=== PATIENT | female | born 1930 | race Hispanic/Latino ===

== ENCOUNTER 2018-07-15 08:37 | Emergency (ER) | payer MEDICARE, BC ==
[2018-07-15 08:43] VITALS: TEMP 97.3
[2018-07-15] MEDS ORDERED: Lidocaine 1% (10 ml) Inj INFIL ONE (09:16)
[2018-07-15] MEDS ORDERED: Lidocaine 1% Inj (20ml) ONE (09:23)
--- NOTE | 2018-07-15 10:13 | ED PDOC ---
HPI: Trauma/Fall - HPI Time Seen by Provider: 07/15/18 09:02 Chief Complaint (Nursing): Abnormal Skin Integrity Chief Complaint (Provider): Abnormal Skin Integrity History Per: Family () History/Exam Limitations: no limitations Additional Complaint(s): Marjorie Ko is a 88 year old female with a past medical history of HTN and diabetes, who presents to the emergency department accompanied by her son and for a fall related injury. As per , patient was witnessed attempting to open the microwave door forcefully and ended up falling to the floor. Patient states she stuck her head on floor but did not lose consciousness, confirmed by the patient. She also states that she was able to walk to the car to get to the ED. She states she has a left sided headache and a laceration to the left side of the face. Patient denies any extremity pain, hip pain, pelvic pain, chest pain, dizziness, LOC, nausea, or vomiting. PMD: Nickolas Whittington Past Medical History Reviewed: Historical Data, Nursing Documentation, Vital Signs Vital Signs: Last Vital Signs Temp 97.3 F L 07/15/18 08:42 Pulse 88 07/15/18 08:42 Resp 18 07/15/18 08:42 BP 171/72 H 07/15/18 08:42 Pulse Ox 99 07/15/18 08:42 - Medical History PMH: Diabetes, HTN, Hypercholesterolemia, Kidney Stones Denies: Chronic Kidney Disease - Surgical History Surgical History: - Family History Family History: States: Unknown Family Hx - Home Medications Home Medications: Ambulatory Orders Medication Instructions Recorded Hydrocortisone [Anusol Hc-1] 1 oin TP BID #1 oin 09/26/14 Polyethylene Glycol 3350 [Miralax] 17 gm PO DAILY #1 bottle 09/26/14 Acetaminophen [Tylenol Extra 1,000 mg PO Q8H PRN 10/01/14 Strength] Enalapril Maleate 20 mg PO DAILY 10/01/14 GlipiZIDE SR [Glucotrol XL] 10 mg PO DAILY 10/01/14 Hydrochlorothiazide 25 mg PO DAILY 10/01/14 Latanoprost 0.005% Opht [Xalatan 1 drop RIGHTEYE HS 10/01/14 Opht] MetFORMIN [glucoPHAGE] 1,000 mg PO BID 10/01/14 Simvastatin [Zocor] 20 mg PO DAILY 10/01/14 - Allergies Allergies/Adverse Reactions: Allergies Allergy/AdvReac Type Severity Reaction Status Date / Time No Known Allergies Allergy Verified 09/26/14 10:56 Review of Systems ROS Statement: Except As Marked, All Systems Reviewed And Found Negative Constitutional: Positive for: Other (laceration to the left side of face) Cardiovascular: Negative for: Chest Pain Gastrointestinal: Negative for: Nausea, Vomiting Musculoskeletal: Negative for: Arm Pain, Hand Pain, Leg Pain, Foot Pain, Other (hip/pelvic pain) Neurological: Positive for: Headache. Negative for: Dizziness, Other (LOC) Physical Exam - Reviewed Nursing Documentation Reviewed: Yes Vital Signs Reviewed: Yes - Physical Exam Appears: Positive for: Non-toxic, No Acute Distress Head Exam: Negative for: NORMAL INSPECTION (Left upper temporal area 1 cm linear superficial laceration without active bleeding) Skin: Positive for: Normal Color, Warm, Dry Eye Exam: Positive for: Normal appearance, EOMI, PERRL Neck: Positive for: Normal, Painless ROM, Supple Cardiovascular/Chest: Positive for: Regular Rate, Rhythm. Negative for: Murmur Respiratory: Positive for: Normal Breath Sounds. Negative for: Respiratory Distress Gastrointestinal/Abdominal: Positive for: Normal Exam, Soft. Negative for: Tenderness Back: Positive for: Normal Inspection. Negative for: L CVA Tenderness, R CVA Tenderness, Vertebral Tenderness Extremity: Positive for: Normal ROM. Negative for: Pedal Edema, Deformity Neurologic/Psych: Positive for: Alert, Oriented (x3), Gait (steady and unassisted ) - ECG O2 Sat by Pulse Oximetry: 99 (RA) Pulse Ox Interpretation: Normal Medical Decision Making Medical Decision Making: Time: 915 Plan: --CT cervical Spine, head and maxillofacial without contrast --Lidocaine hydrochloride 1% 3 ml --- Scribe Attestation: Documented by Mert Calderon, acting as a scribe for Bryant Lucas. Provider Scribe Attestation: All medical record entries made by the Scribe were at my direction and personally dictated by me. I have reviewed the chart and agree that the record accurately reflects my personal performance of the history, physical exam, medical decision making, and the department course for this patient. I have also personally directed, reviewed, and agree with the discharge instructions and disposition. Disposition - Disposition
--- NOTE | 2018-07-15 10:25 | ED PDOC ---
HPI: Trauma/Fall - HPI Time Seen by Provider: 07/15/18 09:02 Chief Complaint (Nursing): Abnormal Skin Integrity Chief Complaint (Provider): Abnormal Skin Integrity History Per: Family () History/Exam Limitations: no limitations Additional Complaint(s): Carlos Ko is a 88 year old female with a past medical history of HTN and diabetes, who presents to the emergency department accompanied by her son and for a fall related injury. As per , patient was witnessed attempting to open the microwave door forcefully and ended up falling to the floor. Patient states she stuck her head on floor but did not lose consciousness, confirmed by the patient. She also states that she was able to walk to the car to get to the ED. She states she has a left sided headache and a laceration to the left side of the face. Patient denies any extremity pain, hip pain, pelvic pain, chest pain, dizziness, LOC, nausea, or vomiting. PMD: Nickolas Whittington Past Medical History Reviewed: Historical Data, Nursing Documentation, Vital Signs Vital Signs: Last Vital Signs Temp 97.3 F L 07/15/18 08:42 Pulse 88 07/15/18 08:42 Resp 18 07/15/18 08:42 BP 171/72 H 07/15/18 08:42 Pulse Ox 99 07/15/18 08:42 - Medical History PMH: Diabetes, HTN, Hypercholesterolemia, Kidney Stones Denies: Chronic Kidney Disease - Surgical History Surgical History: - Family History Family History: States: Unknown Family Hx - Home Medications Home Medications: Ambulatory Orders Medication Instructions Recorded Hydrocortisone [Anusol Hc-1] 1 oin TP BID #1 oin 09/26/14 Polyethylene Glycol 3350 [Miralax] 17 gm PO DAILY #1 bottle 09/26/14 Acetaminophen [Tylenol Extra 1,000 mg PO Q8H PRN 10/01/14 Strength] Enalapril Maleate 20 mg PO DAILY 10/01/14 GlipiZIDE SR [Glucotrol XL] 10 mg PO DAILY 10/01/14 Hydrochlorothiazide 25 mg PO DAILY 10/01/14 Latanoprost 0.005% Opht [Xalatan 1 drop RIGHTEYE HS 10/01/14 Opht] MetFORMIN [glucoPHAGE] 1,000 mg PO BID 10/01/14 Simvastatin [Zocor] 20 mg PO DAILY 10/01/14 - Allergies Allergies/Adverse Reactions: Allergies Allergy/AdvReac Type Severity Reaction Status Date / Time No Known Allergies Allergy Verified 09/26/14 10:56 Review of Systems ROS Statement: Except As Marked, All Systems Reviewed And Found Negative Constitutional: Positive for: Other (laceration to the left side of face ) Cardiovascular: Negative for: Chest Pain Gastrointestinal: Negative for: Nausea, Vomiting Musculoskeletal: Negative for: Arm Pain, Hand Pain, Leg Pain, Foot Pain, Other (hip/pelvic pain) Neurological: Positive for: Headache. Negative for: Dizziness, Other (LOC) Physical Exam - Reviewed Nursing Documentation Reviewed: Yes Vital Signs Reviewed: Yes - Physical Exam Appears: Positive for: Non-toxic, No Acute Distress Head Exam: Negative for: NORMAL INSPECTION (Left upper temporal area 1 cm linear superficial laceration without active bleeding) Skin: Positive for: Normal Color, Warm, Dry Eye Exam: Positive for: Normal appearance, EOMI, PERRL Neck: Positive for: Normal, Painless ROM, Supple Cardiovascular/Chest: Positive for: Regular Rate, Rhythm. Negative for: Murmur Respiratory: Positive for: Normal Breath Sounds. Negative for: Respiratory Distress Gastrointestinal/Abdominal: Positive for: Normal Exam, Soft. Negative for: Tenderness Back: Positive for: Normal Inspection. 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 Localized cortical atrophic changes also contribute bilaterally left greater than right no acute parenchymal, subarachnoid or extra- axial hemorrhage.. BRAIN: Moderate diffuse/confluent chronic white matter ischemic changes seen extending peripherally into the deep and subcortical white matter both cerebral hemispheres. There is also extension of these changes into the white matter tracts of both basal nuclei. Scattered more discrete subcortical as well as bilateral basal nuclei ischemic changes. Significant generalized volume loss with localized bilateral cortical volume loss as well No obvious parenchymal nor extra-axial masses or collections seen on this noncontrast exam. Vascular calcifications both carotid siphons and vertebral arteries. VENTRICLES: No obstructive hydrocephalus however there asymmetry of the lateral ventricles right-sided which is larger than the left. CALVARIUM: No acute calvarial fractures. A. Questionable of chronic right nasal bone fracture PARANASAL SINUSES: Unremarkable as visualized. No significant inflammatory changes. MASTOID AIR CELLS: Unremarkable as visualized. No inflammatory changes. OTHER FINDINGS: Changes of bilateral cataract surgery. IMPRESSION: No acute intracranial hemorrhage. Questionable left-sided subdural hygroma with fairly significant generalized volume loss and more localized bilateral cortical atrophic changes. Moderate chronic white matter and basal nuclei ischemic changes. Questionable chronic right nasal bone fracture [address] FINDINGS: NASAL BONES: Questionable old right sided nasal bone fracture. ORBITS: Bony orbits are intact however there is mild localized left lateral orbital swelling which extends superiorly into the left supraorbital and frontal scalp. Questionable minimal right frontal scalp swelling.. Changes of bilateral cataract surgery however globes are otherwise unremarkable. There are no retrobulbar hemorrhages or collections. Optic nerves and extraocular musculature unremarkable. PARANASAL SINUSES/ MASTOIDS: Clear. MAXILLA: Minimal mucosal thickening seen within the inferior aspect right maxillary antrum. There is also minimal mucosal thickening within few superior anterior ethmoid air cells. MANDIBLE/ TEMPOROMANDIBULAR JOINTS: Unremarkable. SKULL BASE: Unremarkable. TEMPORAL BONES: Middle ears and mastoid grossly unremarkable. OTHER FINDINGS: Changes of bilateral cataract surgery. IMPRESSION: Mild localized left lateral orbital swelling which extends superiorly into the left supraorbital and frontal scalp. Questionable minimal right frontal scalp swelling.. Changes of bilateral cataract surgery. Questionable old right-sided nasal bone fracture deformity. Changes of bilateral cataract surgery. [address] FINDINGS: VERTEBRAE: No fracture. Normal alignment. No destructive bony lesion. DISCS/SPINAL CANAL/NEURAL FORAMINA: At the C2-C3 level, there is adequate disc height. Small central and bilateral disc protrusion indents the ventral surface of the thecal sac and appears to minimally flatten the cord. Central canal is slightly narrowed at this level. Facet joints are slightly hypertrophic however exit foramina appear adequate. At the C3-C4 level, there is mild posterior disc space narrowing with small central and bilateral disc protrusion indents the ventral surface of the thecal sac and spinal cord. The overall central bony canal marginal to adequate at this level.. Facets are slightly hypertrophic left greater than right however exit foramina adequate. At the C4-C5 level, there is adequate disc height. Small central and bilateral disc bulge flattens the ventral surface of the thecal sac though does not cause any significant canal stenosis nor cord compression. The The remaining levels exhibit adequate disc height. No disc herniations nor significant disc bulges. The overall central canal and exit foramina appear adequate. The facet joints are slightly hypertrophic at the remaining levels. PARASPINAL SOFT TISSUES: There is a small amount of air seen within the lower prevertebral soft tissues noted (seen at the inferior C5, level of uncertain etiology. No evidence of a pneumothorax is identified in the lung apices. OTHER FINDINGS: Lung apices clear without infiltrate effusion or pneumothorax. Some minimal biapical pleural thickening and parenchymal scarring. IMPRESSION: No acute fractures.. There are a few tiny bubbles of air within the lower prevertebral soft tissues at the inferior C5 level nonspecific. No evidence of apical pneumothorax. Mild multilevel degenerative spondylosis most notably affecting the C2-C3 and C3-C4 levels as detailed above. Case d/w Dr. Rios and due to CT findings CT chest w/o contrast: Mild passive/dependent type atelectasis both posterior lower lung thurman with more discrete compressive type atelectasis in the left lung base and right middle lobe.. Minimal linear scarring left lingular region. There is also localized focal linear scarring in the middle lobe associate with a small calcified granuloma. There is a small localized area of pleural thickening and/or scarring posteromedial aspect left upper lobe. No evidence of pneumothorax. Mild splenomegaly. Minor fatty hepatic infiltration. Pt., , and son informed of results and advised to f/u with Dr. Whittington regarding CT findings of granuloma. Advised to return to ED immediately for any concerns or questions. Scribe Attestation: Documented by Mert Calderon, acting as a scribe for Bryant Green Provider Scribe Attestation: All medical record entries made by the Scribe were at my direction and personally dictated by me. I have reviewed the chart and agree that the record accurately reflects my personal performance of the history, physical exam, medical decision making, and the department course for this patient. I have also personally directed, reviewed, and agree with the discharge instructions and disposition. Procedures - Time-Out Type of Procedure: Laceration repair Site of Procedure: L side of face Correct Patient (with visual ID + MR# on ID Band): Yes Correct Procedure: Yes Correct Site Marked: Yes PA/Tech: Daly MASTERS - Laceration/Wound Repair Laceration repair Wound Length (cm): 1.5 Wound's Depth, Shape: superficial, linear Wound Explored: clean Irrigated w/ Saline (ccs): 300 Betadine Prep?: Yes Anesthesia: 1% Lidocaine Volume Anesthetic (ccs): 3 Suture Size/Type: 5:0, proline Number of Sutures: 3 Wound Complexity: Simple Sterile Dressing Applied?: Yes Disposition - Clinical Impression Clinical Impression: Head injury, Facial laceration - Patient ED Disposition Is Patient to be Admitted: No - Disposition Referrals: Nickolas Whittington MD [Staff Provider] - [facility] [Outside] Disposition: Routine/Home Disposition Time: 13:29 Condition: STABLE Additional Instructions: SUTURE REMOVAL IN 7 DAYS CARLOS KO, thank you for letting us take care of you today. Your provider was Jose Guadalupe Rios III, DO and you were treated for FALL:EYE LACERATION. The emergency medical care you received today was directed at your acute symptoms. If you were prescribed any medication, please fill it and take as directed. It may take several days for your symptoms to resolve. Return to the Emergency Department if your symptoms worsen, do not improve, or if you have any other problems. Please contact your doctor or call one of the physicians/clinics you have been referred to that are listed on the Patient Visit Information form that is included in your discharge packet. Bring any paperwork you were given at discharge with you along with any medications you are taking to your follow up visit. Our treatment cannot replace ongoing medical care by a primary care provider outside of the emergency department. Thank you for allowing the [facility] team to be part of your care today. If you had an X-Ray or CT scan: A Radiologist will review the ED reading if any change in treatment is needed we will contact you. If you had a blood, urine, or wound culture: It will take several days for the results, if any change in treatment is needed we will contact you. If you had an STI test: It will take 48 hours for the results. Please call after 1 week if you have not heard back. Instructions: Closed Head Injury, Laceration Repair With Stitches (DC) Forms: [employer] ([place])
--- NOTE | 2018-07-15 10:51 | CT ---
Date of service: 07/15/2018 PROCEDURE: CT HEAD WITHOUT CONTRAST. HISTORY: trauma COMPARISON: Correlation made with concurrent CT scan maxillofacial skeleton TECHNIQUE: Axial computed tomography images were obtained through the head/brain without intravenous contrast. Radiation dose: Total exam DLP = 795.24 mGy-cm. This CT exam was performed using one or more of the following dose reduction techniques: Automated exposure control, adjustment of the mA and/or kV according to patient size, and/or use of iterative reconstruction technique. 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 Localized cortical atrophic changes also contribute bilaterally left greater than right no acute parenchymal, subarachnoid or extra-axial hemorrhage.. BRAIN: Moderate diffuse/confluent chronic white matter ischemic changes seen extending peripherally into the deep and subcortical white matter both cerebral hemispheres. There is also extension of these changes into the white matter tracts of both basal nuclei. Scattered more discrete subcortical as well as bilateral basal nuclei ischemic changes. Significant generalized volume loss with localized bilateral cortical volume loss as well No obvious parenchymal nor extra-axial masses or collections seen on this noncontrast exam. Vascular calcifications both carotid siphons and vertebral arteries. VENTRICLES: No obstructive hydrocephalus however there asymmetry of the lateral ventricles right-sided which is larger than the left. CALVARIUM: No acute calvarial fractures. A. Questionable of chronic right nasal bone fracture PARANASAL SINUSES: Unremarkable as visualized. No significant inflammatory changes. MASTOID AIR CELLS: Unremarkable as visualized. No inflammatory changes. OTHER FINDINGS: Changes of bilateral cataract surgery. IMPRESSION: No acute intracranial hemorrhage. Questionable left-sided subdural hygroma with fairly significant generalized volume loss and more localized bilateral cortical atrophic changes. Moderate chronic white matter and basal nuclei ischemic changes. Questionable chronic right nasal bone fracture
--- NOTE | 2018-07-15 10:55 | CT ---
Date of service: 07/15/2018 PROCEDURE: CT MAXILLOFACIAL BONES WITHOUT CONTRAST HISTORY: Trauma COMPARISON: Correlation made with concurrent CT scan brain.. TECHNIQUE: Contiguous axial CT images of the maxillofacial bones were obtained. Coronal and sagittal reformats were generated. Radiation dose: Total exam DLP = 725.93 mGy-cm. This CT exam was performed using one or more of the following dose reduction techniques: Automated exposure control, adjustment of the mA and/or kV according to patient size, and/or use of iterative reconstruction technique. FINDINGS: NASAL BONES: Questionable old right sided nasal bone fracture. ORBITS: Bony orbits are intact however there is mild localized left lateral orbital swelling which extends superiorly into the left supraorbital and frontal scalp. Questionable minimal right frontal scalp swelling.. Changes of bilateral cataract surgery however globes are otherwise unremarkable. There are no retrobulbar hemorrhages or collections. Optic nerves and extraocular musculature unremarkable. PARANASAL SINUSES/ MASTOIDS: Clear. MAXILLA: Minimal mucosal thickening seen within the inferior aspect right maxillary antrum. There is also minimal mucosal thickening within few superior anterior ethmoid air cells. MANDIBLE/ TEMPOROMANDIBULAR JOINTS: Unremarkable. SKULL BASE: Unremarkable. TEMPORAL BONES: Middle ears and mastoid grossly unremarkable. OTHER FINDINGS: Changes of bilateral cataract surgery. IMPRESSION: Mild localized left lateral orbital swelling which extends superiorly into the left supraorbital and frontal scalp. Questionable minimal right frontal scalp swelling.. Changes of bilateral cataract surgery. Questionable old right-sided nasal bone fracture deformity. Changes of bilateral cataract surgery.
--- NOTE | 2018-07-15 11:36 | CT ---
Date of service: 07/15/2018 PROCEDURE: CT Cervical Spine without contrast HISTORY: Trauma the COMPARISON: None available. TECHNIQUE: Axial computed tomography images were obtained of the cervical spine without the use of intravenous contrast. Coronal and sagittal reformatted images were created and reviewed. Radiation dose: Total exam DLP = 311.53 mGy-cm. This CT exam was performed using one or more of the following dose reduction techniques: Automated exposure control, adjustment of the mA and/or kV according to patient size, and/or use of iterative reconstruction technique. FINDINGS: VERTEBRAE: No fracture. Normal alignment. No destructive bony lesion. DISCS/SPINAL CANAL/NEURAL FORAMINA: At the C2-C3 level, there is adequate disc height. Small central and bilateral disc protrusion indents the ventral surface of the thecal sac and appears to minimally flatten the cord. Central canal is slightly narrowed at this level. Facet joints are slightly hypertrophic however exit foramina appear adequate. At the C3-C4 level, there is mild posterior disc space narrowing with small central and bilateral disc protrusion indents the ventral surface of the thecal sac and spinal cord. The overall central bony canal marginal to adequate at this level.. Facets are slightly hypertrophic left greater than right however exit foramina adequate. At the C4-C5 level, there is adequate disc height. Small central and bilateral disc bulge flattens the ventral surface of the thecal sac though does not cause any significant canal stenosis nor cord compression. The The remaining levels exhibit adequate disc height. No disc herniations nor significant disc bulges. The overall central canal and exit foramina appear adequate. The facet joints are slightly hypertrophic at the remaining levels. PARASPINAL SOFT TISSUES: There is a small amount of air seen within the lower prevertebral soft tissues noted (seen at the inferior C5, level of uncertain etiology. No evidence of a pneumothorax is identified in the lung apices. OTHER FINDINGS: Lung apices clear without infiltrate effusion or pneumothorax. Some minimal biapical pleural thickening and parenchymal scarring. IMPRESSION: No acute fractures.. There are a few tiny bubbles of air within the lower prevertebral soft tissues at the inferior C5 level nonspecific. No evidence of apical pneumothorax. Mild multilevel degenerative spondylosis most notably affecting the C2-C3 and C3-C4 levels as detailed above.
--- NOTE | 2018-07-15 13:24 | CT ---
Date of service: 07/15/2018 PROCEDURE: CT Chest without contrast HISTORY: Fall with air bubbles noted in paracervical areas COMPARISON: None available. TECHNIQUE: Contiguous axial images were obtained through the chest without intravenous contrast enhancement. Sagittal and coronal reconstructions were performed. Radiation dose: Total exam DLP = 281.88 mGy-cm. This CT exam was performed using one or more of the following dose reduction techniques: Automated exposure control, adjustment of the mA and/or kV according to patient size, and/or use of iterative reconstruction technique. FINDINGS: LUNGS: Mild passive/dependent type atelectasis both posterior lower lung thurman with more discrete compressive type atelectasis in the left lung base and right middle lobe.. Minimal linear scarring left lingular region. There is also localized focal linear scarring in the middle lobe associate with a small calcified granuloma. There is a small localized area of pleural thickening and/or scarring posteromedial aspect left upper lobe. MEDIASTINUM: Heart size upper limits of normal-borderline enlarged. No significant pericardial effusion.. Ascending thoracic aorta measures approximately 3.1 cm and descending thoracic aorta measures approximately 2.4 cm. No aortic atherosclerotic calcification. Pulmonary trunk measures approximately 2.3 cm.. The there are multiple small nonspecific mediastinal lymph nodes. Evaluation for hilar adenopathy is somewhat limited due to the lack of circulating intravenous contrast material. Trachea midline and patent with no large central endoluminal lesions. Small hiatal hernia. PLEURA: No pleural fluid. No pneumothorax. BONES: Mild multilevel degenerative spondylosis of the thoracic spine. There are no acute compression fractures no retropulsed fragments UPPER ABDOMEN: Spleen is mildly enlarged measuring approximately 13 cm in AP dimension. Mild fatty hepatic infiltration. OTHER FINDINGS: None. IMPRESSION: Mild passive/dependent type atelectasis both posterior lower lung thurman with more discrete compressive type atelectasis in the left lung base and right middle lobe.. Minimal linear scarring left lingular region. There is also localized focal linear scarring in the middle lobe associate with a small calcified granuloma. There is a small localized area of pleural thickening and/or scarring posteromedial aspect left upper lobe. No evidence of pneumothorax. Mild splenomegaly. Minor fatty hepatic infiltration.
[2018-07-15 17:22] VITALS: BP 147/68; PULSE 76; RESP 16
[2018-07-15 18:34] VITALS: O2SAT 99
== END 2018-07-15 13:40 | disposition home or self-care (01) ==
LOC: H.ER 08:37
DX: S01.81XA Laceration without foreign body of other part of head, initial encounter (principal); W22.8XXA Striking against or struck by other objects, initial encounter; Y92.89 Other specified places as the place of occurrence of the external cause; E11.9 Type 2 diabetes mellitus without complications; Z79.84 Long term (current) use of oral hypoglycemic drugs; E78.00 Pure hypercholesterolemia, unspecified; I10 Essential (primary) hypertension

== ENCOUNTER 2018-09-18 07:58 | Inpatient (IN) | payer BC, MEDICARE ==
[2018-09-18 08:02] VITALS: BMI 24.6
--- NOTE | 2018-09-18 08:23 | ED PDOC ---
HPI: Trauma/Fall - HPI Time Seen by Provider: 09/18/18 08:01 Chief Complaint (Nursing): Trauma Chief Complaint (Provider): fall History Per: Patient History/Exam Limitations: no limitations Onset/Duration Of Symptoms: Hrs (last night) Associated Symptoms: denies: Dizziness Additional Complaint(s): Marjorie Ko is an 88 year old female, with a past medical history of diabetes, who was brought to the emergency department after patient experienced a fall last night while going to the bathroom. states patient did not trip but just fell down. Unclear if there was loss of consciousness. Patient reports having multiple falls in the past x2 weeks with prior ED visit. She denies any head injury, neck pain, back pain, hip pain, antecedent dizziness, chest pain or palpitations. No further medical complaints. PMD: Nickolas Whittington Past Medical History Reviewed: Historical Data, Nursing Documentation, Vital Signs Vital Signs: Last Vital Signs Temp 97.7 F 09/18/18 08:03 Pulse 90 09/18/18 08:03 Resp 17 09/18/18 08:03 BP 162/75 H 09/18/18 08:03 Pulse Ox 97 09/18/18 08:03 - Medical History PMH: Diabetes, HTN, Hypercholesterolemia, Kidney Stones Denies: Chronic Kidney Disease - Surgical History Surgical History: - Family History Family History: States: Unknown Family Hx - Social History Current smoker - smoking cessation education provided: No Alcohol: None Drugs: Denies - Home Medications Home Medications: Ambulatory Orders Medication Instructions Recorded Hydrocortisone [Anusol Hc-1] 1 oin TP BID #1 oin 09/26/14 Polyethylene Glycol 3350 [Miralax] 17 gm PO DAILY #1 bottle 09/26/14 Acetaminophen [Tylenol Extra 1,000 mg PO Q8H PRN 10/01/14 Strength] Enalapril Maleate 20 mg PO DAILY 10/01/14 GlipiZIDE SR [Glucotrol XL] 10 mg PO DAILY 10/01/14 Hydrochlorothiazide 25 mg PO DAILY 10/01/14 Latanoprost 0.005% Opht [Xalatan 1 drop RIGHTEYE HS 10/01/14 Opht] MetFORMIN [glucoPHAGE] 1,000 mg PO BID 10/01/14 Simvastatin [Zocor] 20 mg PO DAILY 10/01/14 - Allergies Allergies/Adverse Reactions: Allergies Allergy/AdvReac Type Severity Reaction Status Date / Time No Known Allergies Allergy Verified 09/18/18 08:13 Review of Systems ROS Statement: Except As Marked, All Systems Reviewed And Found Negative Cardiovascular: Negative for: Chest Pain, Palpitations Musculoskeletal: Negative for: Neck Pain, Back Pain, Other (hip pain) Neurological: Negative for: Dizziness Physical Exam - Reviewed Nursing Documentation Reviewed: Yes Vital Signs Reviewed: Yes - Physical Exam Appears: Positive for: No Acute Distress Head Exam: Positive for: ATRAUMATIC, NORMAL INSPECTION, NORMOCEPHALIC Skin: Positive for: Normal Color, Warm, Dry Eye Exam: Positive for: EOMI. Negative for: PERRL (Left pupil irregular) Neck: Positive for: Normal, Painless ROM, Supple (Nontender) Cardiovascular/Chest: Positive for: Regular Rate, Rhythm. Negative for: Murmur Respiratory: Positive for: Normal Breath Sounds (clear to auscultation). Negative for: Respiratory Distress Gastrointestinal/Abdominal: Positive for: Normal Exam, Soft. Negative for: Tenderness, Guarding, Rebound Back: Positive for: Normal Inspection. Negative for: L CVA Tenderness, R CVA Tenderness, Vertebral Tenderness (No spinal tenderness), Other (deformity) Extremity: Positive for: Normal ROM (all extremities). Negative for: Tenderness (hip), Deformity, Other (shortening of lower extremity or tation) Neurologic/Psych: Positive for: Alert, Oriented (x3). Negative for: Motor/Sensory Deficits (No focal deficits) - Laboratory Results Result Diagrams: 09/18/18 08:35 09/18/18 08:35 - ECG O2 Sat by Pulse Oximetry: 97 (RA) Pulse Ox Interpretation: Normal Medical Decision Making Medical Decision Making: Time: 08:01 Initial Impression: Multiple falls over the past x2 weeks. Unclear if true syncope, however will obtain CT of head, EKG and labs, and consider observation given multiple falls and potential for injury. Initial Plan: --Head w/o contrast [CT] --EKG --CMP --CBC w/ differential --Chest one view [RAD] --Pelvis one view [RAD] --UA --Reevaluation - Scribe Attestation: Documented by Bj Brooks, acting as a scribe for Dusty Love MD Provider Scribe Attestation: All medical record entries made by the Scribe were at my direction and personally dictated by me. I have reviewed the chart and agree that the record accurately reflects my personal performance of the history, physical exam, medical decision making, and the department course for this patient. I have also personally directed, reviewed, and agree with the discharge instructions and disposition. Disposition - Clinical Impression Clinical Impression: Syncope - Patient ED Disposition Is Patient to be Admitted: Yes - Disposition Disposition Time: 09:30 Condition: FAIR Forms: Warby Parker ([place]) - Pt Status Changed To: Hospital Disposition Of: Inpatient - Admit Certification Admit to Inpatient:: After my assessment, the patient will require hospitalization for at least two midnights. This is because of the severity of symptoms shown, intensity of services needed, and/or the medical risk in this patient being treated as an outpatient. - POA Present On Arrival: None
[2018-09-18 08:54] LABS: BASO # 0.1 K/uL (0.0-0.2); BASO % 1.2 % (0.0-2.0); EOS # 0.1 K/uL (0.0-0.7); EOS % 0.7 % (0.0-4.0); HEMOGLOBIN 14.7 g/dL (12.0-16.0); LYMPH # 0.9 K/uL (1.0-4.3); LYMPH % 12.3 % (20.0-40.0); MEAN CELL VOLUME 83.9 fl (81.0-99.0); MEAN CORPUSCULAR HEMOGLOBIN 28.2 pg (27.0-31.0); MEAN CORPUSCULAR HGB CONC 33.6 g/dL (33.0-37.0); MEAN PLATELET VOLUME 9.2 fl (7.2-11.7); MONO # 0.5 K/uL (0.0-0.8); MONO % 6.8 % (0.0-10.0); NEUT # 5.7 K/uL (1.8-7.0); RBC 5.23 Mil/uL (3.80-5.20); RED CELL DISTRIBUTION WIDTH 13.9 % (11.5-14.5); WHITE BLOOD COUNT 7.3 K/uL (4.8-10.8)
[2018-09-18 09:05] LABS: CALCIUM 9.7 mg/dL (8.4-10.2)
[2018-09-18 09:07] LABS: ALB/GLOB RATIO 1.3 (1.0-2.1); ALBUMIN 4.1 g/dL (3.5-5.0)
--- NOTE | 2018-09-18 09:42 | RAD ---
Date of service: 09/18/2018 PROCEDURE: Radiographs of the pelvis. HISTORY: fall COMPARISON: None. FINDINGS: BONES: Pulmonary appears intact without fracture or destructive bony lesion identified. Bilateral hip joints are intact without dislocation or fracture evident grossly. Degenerative changes seen the bilateral sacroiliac and hip joints. Pubic symphysis is intact swells remaining pubic bony anatomy. Diffuse osteopenia suggests osteoporosis throughout the exam. Surgical clips are identified in the pelvic soft tissues. OTHER FINDINGS: None. IMPRESSION: No acute fracture appreciable. Diffuse osteopenia suggests osteoporosis. Postoperative change are incidentally noted in the pelvis soft tissues inferiorly. Degenerative hip and sacroiliac joint changes identified as discussed above.
--- NOTE | 2018-09-18 09:50 | RAD ---
Date of service: 09/18/2018 HISTORY: syncope COMPARISON: Chest CT without contrast 07/15/2018. FINDINGS: LUNGS: Interval consolidation bilaterally. Fibrotic changes are again seen bilaterally at the inferior lung zones. PLEURA: No significant pleural effusion identified, no pneumothorax apparent. CARDIOVASCULAR: Calcific atherosclerotic changes are seen related to the thoracic aorta. Normal cardiac size. No pulmonary vascular congestion. OSSEOUS STRUCTURES: No significant abnormalities. VISUALIZED UPPER ABDOMEN: Normal. OTHER FINDINGS: None. IMPRESSION: No acute infiltrate or pleural effusion bilaterally. Stable fibrotic changes bilateral bases.
--- NOTE | 2018-09-18 10:22 | CT ---
Date of service: 09/18/2018 PROCEDURE: CT HEAD WITHOUT CONTRAST. HISTORY: r/o bleed COMPARISON: None available. TECHNIQUE: Axial computed tomography images were obtained through the head/brain without intravenous contrast. Radiation dose: Total exam DLP = 1137.81 mGy-cm. This CT exam was performed using one or more of the following dose reduction techniques: Automated exposure control, adjustment of the mA and/or kV according to patient size, and/or use of iterative reconstruction technique. FINDINGS: Motion artifact examination. HEMORRHAGE: No intracranial hemorrhage. BRAIN: Good corticomedullary differentiation is seen. Reiterated diffuse cerebral atrophy and chronic microangiopathy. No suspicious extra-axial fluid collection is identified and the midline brain anatomy appears grossly nonfocal as imaged. No mass effect identified. 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 None is apparent at the right once again. VENTRICLES: Unremarkable. No hydrocephalus. CALVARIUM: Unremarkable. PARANASAL SINUSES: Unremarkable as visualized. No significant inflammatory changes. MASTOID AIR CELLS: Unremarkable as visualized. No inflammatory changes. OTHER FINDINGS: None. IMPRESSION: Stable age related neuro degenerative change identified bilaterally with left cerebral convexity chronic subdural hygroma unchanged. No definite acute intracranial findings appreciable at this time.
[2018-09-18] MEDS ORDERED: GlipiZIDE 10 mg SR Tab PO SCH (12:45)
[2018-09-18 16:14] LABS: HDL CHOLESTEROL 37 MG/DL (30-70)
[2018-09-18 16:24] LABS: LDL CHOLESTEROL 147 mg/dL (0-129)
--- NOTE | 2018-09-18 17:03 | CARD ---
APPROVED REPORT Date of service: 09/18/2018 EKG Measurement Heart [id number] <Conclusion> Normal sinus rhythm Possible Left atrial enlargement Borderline ECG
[2018-09-18] MEDS: GlipiZIDE 10 mg SR Tab PO SCH (17:24)
[2018-09-18] MEDS: Insulin Regular 100 units/ml SC SCH ×2 (17:24→22:57)
[2018-09-18] MEDS: Enoxaparin 30 mg Syringe SC SCH (17:26)
--- NOTE | 2018-09-18 19:30 | CP.PCM.CON ---
History of Present Illness - History of Present Illness History of Present Illness: pt is seen and examined, full consult is dictated #[id number] Past Patient History - Past Medical History & Family History Past Medical History?: Yes - Past Social History Smoking Status: Current Some Days Smoker - CARDIAC Hx Cardiac Disorders: Yes (htn,hld) - PULMONARY Hx Respiratory Disorders: No - NEUROLOGICAL Hx Neurological Disorder: No - HEENT Hx HEENT Problems: Yes (glaucoma) - RENAL Hx Chronic Kidney Disease: No - ENDOCRINE/METABOLIC Hx Endocrine Disorders: Yes (dm2) - HEMATOLOGICAL/ONCOLOGICAL Hx Blood Disorders: No Hx AIDS: No Hx Human Immunodeficiency Virus (HIV): No - INTEGUMENTARY Hx Dermatological Problems: No - MUSCULOSKELETAL/RHEUMATOLOGICAL Hx Musculoskeletal Disorders: No Hx Falls: Yes - GASTROINTESTINAL Hx Gastrointestinal Disorders: No - GENITOURINARY/GYNECOLOGICAL Hx Genitourinary Disorders: No - PSYCHIATRIC Hx Psychophysiologic Disorder: No Hx Substance Use: No - SURGICAL HISTORY Hx Hysterectomy: Yes - ANESTHESIA Hx Anesthesia: Yes Hx Anesthesia Reactions: No Hx Malignant Hyperthermia: No Meds Allergies/Adverse Reactions: Allergies Allergy/AdvReac Type Severity Reaction Status Date / Time No Known Allergies Allergy Verified 09/18/18 08:13 - Medications Medications: Current Medications Atorvastatin Calcium (Lipitor) 20 mg PO HS [facility] Enalapril Maleate (Vasotec) 20 mg PO DAILY [facility] Last Admin: 09/18/18 17:27 Dose: 20 mg Enoxaparin Sodium (Lovenox) 30 mg SC DAILY [facility]; Protocol Last Admin: 09/18/18 17:26 Dose: 30 mg Fluticasone Propionate (Flonase) 2 spr MARY DAILY [facility] Last Admin: 09/18/18 15:45 Dose: 2 spr Glipizide (Glucotrol Xl) 10 mg PO ACBD [facility] Last Admin: 09/18/18 17:24 Dose: 10 mg Hydrochlorothiazide (Hydrodiuril) 25 mg PO DAILY [facility] Last Admin: 09/18/18 17:26 Dose: 25 mg Insulin Human Regular (Humulin R) 0 units SC [facility]; Protocol Last Admin: 09/18/18 17:24 Dose: 3 units Latanoprost (Xalatan Opht) 1 drop OU HS [facility] Results - Vital Signs Recent Vital Signs: Last Vital Signs Temp 97.7 F 09/18/18 16:26 Pulse 76 09/18/18 16:26 Resp 18 09/18/18 16:26 BP 150/72 09/18/18 16:26 Pulse Ox 97 09/18/18 16:26 - Labs Result Diagrams: 09/18/18 08:35 09/18/18 08:35 Labs: Laboratory Results - last 24 hr 09/18/18 09/18/18 09/18/18 08:35 08:35 15:24 WBC 7.3 RBC 5.23 H Hgb 14.7 Hct 43.9 MCV 83.9 MCH 28.2 MCHC 33.6 RDW 13.9 Plt Count 131 MPV 9.2 Neut % (Auto) 79.0 H Lymph % (Auto) 12.3 L [place] % (Auto) 6.8 Eos % (Auto) 0.7 Baso % (Auto) 1.2 Neut # (Auto) 5.7 Lymph # (Auto) 0.9 L [place] # (Auto) 0.5 Eos # (Auto) 0.1 Baso # (Auto) 0.1 Sodium 137 Potassium 4.5 Chloride 99 Carbon Dioxide 25 Anion Gap 18 BUN 12 Creatinine 1.2 Est GFR ( Amer) 52 Est GFR (Non-Af Amer) 43 POC Glucose (mg/dL) Random Glucose 262 H Calcium 9.7 Total Bilirubin 1.1 AST 31 ALT 11 Alkaline Phosphatase 58 Troponin I < 0.0120 Total Protein 7.4 Albumin 4.1 Globulin 3.3 Albumin/Globulin Ratio 1.3 Triglycerides 218 H Cholesterol 202 H LDL Cholesterol Direct 147 H HDL Cholesterol 37 TSH 3rd Generation 2.58 09/18/18 15:58 WBC RBC Hgb Hct MCV MCH MCHC RDW Plt Count MPV Neut % (Auto) Lymph % (Auto) [place] % (Auto) Eos % (Auto) Baso % (Auto) Neut # (Auto) Lymph # (Auto) [place] # (Auto) Eos # (Auto) Baso # (Auto) Sodium Potassium Chloride Carbon Dioxide Anion Gap BUN Creatinine Est GFR ( Amer) Est GFR (Non-Af Amer) POC Glucose (mg/dL) 256 H Random Glucose Calcium Total Bilirubin AST ALT Alkaline Phosphatase Troponin I Total Protein Albumin Globulin Albumin/Globulin Ratio Triglycerides Cholesterol LDL Cholesterol Direct HDL Cholesterol TSH 3rd Generation
--- NOTE | 2018-09-18 19:53 | CP.PCM.HP ---
History of Present Illness - History of Present Illness History of Present Illness: 88 yo admitted for fall/ syncopal episodes x3 over past week Present on Admission - Present on Admission Any Indicators Present on Admission: No Past Patient History - Past Medical History & Family History Past Medical History?: Yes - Past Social History Smoking Status: Current Some Days Smoker - CARDIAC Hx Cardiac Disorders: Yes (htn,hld) - PULMONARY Hx Respiratory Disorders: No - NEUROLOGICAL Hx Neurological Disorder: No - HEENT Hx HEENT Problems: Yes (glaucoma) - RENAL Hx Chronic Kidney Disease: No - ENDOCRINE/METABOLIC Hx Endocrine Disorders: Yes (dm2) - HEMATOLOGICAL/ONCOLOGICAL Hx Blood Disorders: No Hx AIDS: No Hx Human Immunodeficiency Virus (HIV): No - INTEGUMENTARY Hx Dermatological Problems: No - MUSCULOSKELETAL/RHEUMATOLOGICAL Hx Musculoskeletal Disorders: No Hx Falls: Yes - GASTROINTESTINAL Hx Gastrointestinal Disorders: No - GENITOURINARY/GYNECOLOGICAL Hx Genitourinary Disorders: No - PSYCHIATRIC Hx Psychophysiologic Disorder: No Hx Substance Use: No - SURGICAL HISTORY Hx Hysterectomy: Yes - ANESTHESIA Hx Anesthesia: Yes Hx Anesthesia Reactions: No Hx Malignant Hyperthermia: No Meds Allergies/Adverse Reactions: Allergies Allergy/AdvReac Type Severity Reaction Status Date / Time No Known Allergies Allergy Verified 09/18/18 08:13 Physical Exam - Respiratory Exam Respiratory Exam: NORMAL BREATHING PATTERN - Cardiovascular Exam Cardiovascular Exam: REGULAR RHYTHM - GI/Abdominal Exam GI & Abdominal Exam: Normal Bowel Sounds Results - Vital Signs Recent Vital Signs: Last Vital Signs Temp 97.7 F 09/18/18 16:26 Pulse 76 09/18/18 16:26 Resp 18 09/18/18 16:26 BP 150/72 09/18/18 16:26 Pulse Ox 97 09/18/18 16:26 - Labs Result Diagrams: 09/18/18 08:35 09/18/18 08:35 Labs: Laboratory Results - last 24 hr 09/18/18 09/18/18 09/18/18 08:35 08:35 15:24 WBC 7.3 RBC 5.23 H Hgb 14.7 Hct 43.9 MCV 83.9 MCH 28.2 MCHC 33.6 RDW 13.9 Plt Count 131 MPV 9.2 Neut % (Auto) 79.0 H Lymph % (Auto) 12.3 L [place] % (Auto) 6.8 Eos % (Auto) 0.7 Baso % (Auto) 1.2 Neut # (Auto) 5.7 Lymph # (Auto) 0.9 L [place] # (Auto) 0.5 Eos # (Auto) 0.1 Baso # (Auto) 0.1 Sodium 137 Potassium 4.5 Chloride 99 Carbon Dioxide 25 Anion Gap 18 BUN 12 Creatinine 1.2 Est GFR ( Amer) 52 Est GFR (Non-Af Amer) 43 POC Glucose (mg/dL) Random Glucose 262 H Calcium 9.7 Total Bilirubin 1.1 AST 31 ALT 11 Alkaline Phosphatase 58 Troponin I < 0.0120 Total Protein 7.4 Albumin 4.1 Globulin 3.3 Albumin/Globulin Ratio 1.3 Triglycerides 218 H Cholesterol 202 H LDL Cholesterol Direct 147 H HDL Cholesterol 37 TSH 3rd Generation 2.58 09/18/18 15:58 WBC RBC Hgb Hct MCV MCH MCHC RDW Plt Count MPV Neut % (Auto) Lymph % (Auto) [place] % (Auto) Eos % (Auto) Baso % (Auto) Neut # (Auto) Lymph # (Auto) [place] # (Auto) Eos # (Auto) Baso # (Auto) Sodium Potassium Chloride Carbon Dioxide Anion Gap BUN Creatinine Est GFR ( Amer) Est GFR (Non-Af Amer) POC Glucose (mg/dL) 256 H Random Glucose Calcium Total Bilirubin AST ALT Alkaline Phosphatase Troponin I Total Protein Albumin Globulin Albumin/Globulin Ratio Triglycerides Cholesterol LDL Cholesterol Direct HDL Cholesterol TSH 3rd Generation Assessment & Plan - Assessment and Plan (Free Text) Assessment: Recurrent falls/Syncope Admit to telemetry Neurology Cardiolgy MIDDM Diabetic nepphropathy Nephrology Endo Dysthymia?? Psych COPD Incontinence - Date & Time Date: 09/18/18 Time: 22:22
--- NOTE | 2018-09-18 20:13 | CP.PCM.CON ---
Past Patient History - Past Medical History & Family History Past Medical History?: Yes - Past Social History Smoking Status: Current Some Days Smoker - CARDIAC Hx Cardiac Disorders: Yes (htn,hld) - PULMONARY Hx Respiratory Disorders: No - NEUROLOGICAL Hx Neurological Disorder: No - HEENT Hx HEENT Problems: Yes (glaucoma) - RENAL Hx Chronic Kidney Disease: No - ENDOCRINE/METABOLIC Hx Endocrine Disorders: Yes (dm2) - HEMATOLOGICAL/ONCOLOGICAL Hx Blood Disorders: No Hx AIDS: No Hx Human Immunodeficiency Virus (HIV): No - INTEGUMENTARY Hx Dermatological Problems: No - MUSCULOSKELETAL/RHEUMATOLOGICAL Hx Musculoskeletal Disorders: No Hx Falls: Yes - GASTROINTESTINAL Hx Gastrointestinal Disorders: No - GENITOURINARY/GYNECOLOGICAL Hx Genitourinary Disorders: No - PSYCHIATRIC Hx Psychophysiologic Disorder: No Hx Substance Use: No - SURGICAL HISTORY Hx Hysterectomy: Yes - ANESTHESIA Hx Anesthesia: Yes Hx Anesthesia Reactions: No Hx Malignant Hyperthermia: No Meds Allergies/Adverse Reactions: Allergies Allergy/AdvReac Type Severity Reaction Status Date / Time No Known Allergies Allergy Verified 09/18/18 08:13 - Medications Medications: Current Medications Atorvastatin Calcium (Lipitor) 20 mg PO HS [facility] Enalapril Maleate (Vasotec) 20 mg PO DAILY [facility]S [facility] Last Admin: 09/18/18 17:27 Dose: 20 mg Enoxaparin Sodium (Lovenox) 30 mg SC DAILY [facility] 234 B[facility]S [facility]; Protocol Last Admin: 09/18/18 17:26 Dose: 30 mg Fluticasone Propionate (Flonase) 2 spr MARY DAILY [facility]S [facility] Last Admin: 09/18/18 15:45 Dose: 2 spr Glipizide (Glucotrol Xl) 10 mg PO ACBD [facility] 234 BEDS AT [facility] Last Admin: 09/18/18 17:24 Dose: 10 mg Hydrochlorothiazide (Hydrodiuril) 25 mg PO DAILY [facility] 234 B[facility]S AT [facility] Last Admin: 09/18/18 17:26 Dose: 25 mg Insulin Human Regular (Humulin R) 0 units SC [facility] COUNTS [facility]CLUDE 234 BEDS AT THE [facility]; Protocol Last Admin: 09/18/18 17:24 Dose: 3 units Latanoprost (Xalatan Opht) 1 drop OU HS [facility] 234 BEDS AT [facility] Results - Vital Signs Recent Vital Signs: Last Vital Signs Temp 98.3 F 09/18/18 20:08 Pulse 85 09/18/18 20:08 Resp 18 09/18/18 20:08 BP 145/68 09/18/18 20:08 Pulse Ox 96 09/18/18 20:08 - Labs Result Diagrams: 09/18/18 08:35 09/18/18 08:35 Labs: Laboratory Results - last 24 hr 09/18/18 09/18/18 09/18/18 08:35 08:35 15:24 WBC 7.3 RBC 5.23 H Hgb 14.7 Hct 43.9 MCV 83.9 MCH 28.2 MCHC 33.6 RDW 13.9 Plt Count 131 MPV 9.2 Neut % (Auto) 79.0 H Lymph % (Auto) 12.3 L [place] % (Auto) 6.8 Eos % (Auto) 0.7 Baso % (Auto) 1.2 Neut # (Auto) 5.7 Lymph # (Auto) 0.9 L [place] # (Auto) 0.5 Eos # (Auto) 0.1 Baso # (Auto) 0.1 Sodium 137 Potassium 4.5 Chloride 99 Carbon Dioxide 25 Anion Gap 18 BUN 12 Creatinine 1.2 Est GFR ( Amer) 52 Est GFR (Non-Af Amer) 43 POC Glucose (mg/dL) Random Glucose 262 H Calcium 9.7 Total Bilirubin 1.1 AST 31 ALT 11 Alkaline Phosphatase 58 Troponin I < 0.0120 Total Protein 7.4 Albumin 4.1 Globulin 3.3 Albumin/Globulin Ratio 1.3 Triglycerides 218 H Cholesterol 202 H LDL Cholesterol Direct 147 H HDL Cholesterol 37 TSH 3rd Generation 2.58 09/18/18 15:58 WBC RBC Hgb Hct MCV MCH MCHC RDW Plt Count MPV Neut % (Auto) Lymph % (Auto) [place] % (Auto) Eos % (Auto) Baso % (Auto) Neut # (Auto) Lymph # (Auto) [place] # (Auto) Eos # (Auto) Baso # (Auto) Sodium Potassium Chloride Carbon Dioxide Anion Gap BUN Creatinine Est GFR ( Amer) Est GFR (Non-Af Amer) POC Glucose (mg/dL) 256 H Random Glucose Calcium Total Bilirubin AST ALT Alkaline Phosphatase Troponin I Total Protein Albumin Globulin Albumin/Globulin Ratio Triglycerides Cholesterol LDL Cholesterol Direct HDL Cholesterol TSH 3rd Generation
[2018-09-18] MEDS: Sodium Chloride 0.45% 1,000 ML IV SCH (20:15)
[2018-09-18] MEDS ORDERED: Latanoprost 0.005% Opht SOUTION OD SCH (22:00)
[2018-09-18 22:31] LABS: SQUAMOUS EPITHIAL 2 /hpf (0-5); URINE BACTERIA MANY (<OCC); URINE BILIRUBIN NEGATIVE (NEGATIVE); URINE BLOOD NEGATIVE (NEGATIVE); URINE CLARITY SLIGHTY-CLOUDY (Clear); URINE COLOR YELLOW (YELLOW); URINE GLUCOSE (UA) >=500 mg/dL (NEGATIVE); URINE LEUKOCYTE ESTERASE NEG Leu/uL (Negative); URINE PROTEIN NEGATIVE (NEGATIVE); URINE UROBILINOGEN 0.2-1.0 mg/dL (0.2-1.0)
[2018-09-18] MEDS: Latanoprost 0.005% Opht SOUTION OU SCH (22:33)
--- NOTE | 2018-09-19 04:59 | CON ---
DATE: 09/18/2018 ENDOCRINOLOGY CONSULTATION LOCATION: Room 402, bed 2. HISTORY OF PRESENT ILLNESS: This is an 88-year-old female with known history of type 2 diabetes, hypertension, presenting here with a recent fall and supervening generalized body weakness and is now being referred for diabetic evaluation and management. PAST MEDICAL HISTORY: As mentioned above, history of type 2 diabetes, currently on a combination of glipizide given as 10 mg once daily with metformin at 1 g b.i.d.; history of hypertension and dyslipidemia; history of nephrolithiasis with no recent stone passage; history of diffuse osteoarthritis with concomitant polyarthralgia. FAMILY HISTORY: Positive for diabetes and hypertension. SOCIAL HISTORY: The patient has a supportive family. No known substance use. REVIEW OF SYSTEMS: As mentioned above. Admits to generalized body weakness with episodic bouts of dizziness and lightheadedness, worse in the last few days prior to admission. Also admits to recurrent falls, worse in the last three to four weeks prior to admission. She denies any syncopal episodes otherwise. No chest pains or palpitations. Her oral intake has been variable with nausea, dyspepsia and habitual constipation. PHYSICAL EXAMINATION: GENERAL: Average built female in no apparent distress. VITAL SIGNS: With a blood pressure of 140/80, pulse of 70 beats per minute and regular, temperature 98, respirations 20. Height is 5 feet. Weight is 126 pounds. HEENT: Head is normocephalic. Eyes anicteric with pink conjunctivae. Funduscopy not possible at this time. Ears, nose, and throat otherwise normal. NECK: Supple. Thyroid gland is normal in size. No carotid bruits or cervical adenopathy. CARDIOPULMONARY: Some adynamic precordium. S1 and S2 are rapid and regular. Lungs are clear to auscultation. ABDOMEN: Flat, soft with positive bowel sounds. EXTREMITIES: No peripheral edema. Pulses are +2 bilaterally. LABORATORY DATA: Chemistry showed a BUN of 12, sodium 137, potassium 4.5, chloride 99, CO2 of 25, glucose 262, and creatinine 1.2. ASSESSMENT: This is an 88-year-old female with uncontrolled type 2 diabetes, presenting here with recurrent falls with concomitant diffuse osteoarthritis and polyarthralgia and is now being referred for diabetic evaluation and management. PLAN OF MANAGEMENT: We will optimize her oral hypoglycemic therapy and increase the glipizide to 10 mg b.i.d. before meals to start today as ordered. We will also hold off the resumption of her metformin given as 850 mg b.i.d., not only with the advanced age of the patient but also because of the recent early nephropathy with impaired glomerular filtration rate even with apparent near-normal creatinine level as this is expected in patients with advanced age as noted. Also moreover, her oral intake has been variable and suboptimal at this time. Would consider the addition of Januvia at 50 mg once daily if hyperglycemic levels persist otherwise. We will modify the coverage scale to obviate hypoglycemia and detailed orders have been given. We will obtain serial chemistries and supplement accordingly as needed. We will also obtain a hemoglobin A1c to confirm her prior glycemic control, and baseline thyroid function studies will be ordered. We will follow and advise accordingly. Kerri Bacon MD
[2018-09-19 06:08] LABS: ALB/GLOB RATIO 1.3 (1.0-2.1); ALBUMIN 4.1 g/dL (3.5-5.0); CALCIUM 9.9 mg/dL (8.4-10.2)
[2018-09-19] MEDS: Insulin Regular 100 units/ml SC SCH ×4 (08:55→22:15)
[2018-09-19] MEDS: GlipiZIDE 10 mg SR Tab PO SCH ×2 (09:15→17:21)
[2018-09-19] MEDS: Enoxaparin 30 mg Syringe SC SCH (09:17)
[2018-09-19] MEDS ORDERED: Potassium Chloride 20 mEq ER Tab PO ONE (11:02)
--- NOTE | 2018-09-19 11:52 | CP.PCM.PN ---
Subjective - Date & Time of Evaluation Date of Evaluation: 09/19/18 Time of Evaluation: 11:52 - Subjective Subjective: pt is seen and examined, follow up consult is dictated #[id number] Objective - Vital Signs/Intake and Output Vital Signs (last 24 hours): Temp Pulse Resp BP Pulse Ox 97.5 F L 84 20 151/74 H 98 09/19/18 07:48 09/19/18 07:48 09/19/18 07:48 09/19/18 07:48 09/19/18 07:48 Intake and Output: 09/19/18 09/19/18 06:59 18:59 Output Total 650 Balance -650 - Medications Medications: Current Medications Atorvastatin Calcium (Lipitor) 20 mg PO HS [facility] Last Admin: 09/18/18 22:30 Dose: 20 mg Ciprofloxacin (Cipro) 500 mg PO Q12 [facility]; Protocol Enalapril Maleate (Vasotec) 20 mg PO DAILY [facility] Last Admin: 09/19/18 09:18 Dose: 20 mg Enoxaparin Sodium (Lovenox) 30 mg SC DAILY [facility]; Protocol Last Admin: 09/19/18 09:17 Dose: 30 mg Fluticasone Propionate (Flonase) 2 spr MARY DAILY [facility] Last Admin: 09/19/18 09:15 Dose: 2 spr Glipizide (Glucotrol Xl) 10 mg PO ACBD [facility] Last Admin: 09/19/18 09:15 Dose: 10 mg Hydrochlorothiazide (Hydrodiuril) 25 mg PO DAILY [facility] Last Admin: 09/19/18 09:17 Dose: 25 mg Sodium Chloride (Sodium Chloride 0.45%) 1,000 mls @ 60 mls/hr IV .[id number] [facility] Stop: 09/19/18 20:14 Last Admin: 09/18/18 20:15 Dose: 60 mls/hr Insulin Human Regular (Humulin R) 0 units SC ACHS [facility]; Protocol Last Admin: 09/19/18 08:55 Dose: Not Given Latanoprost (Xalatan Opht) 1 drop OU HS [facility] Last Admin: 09/18/18 22:33 Dose: 1 drop - Labs Labs: 09/18/18 08:35 09/19/18 04:30
--- NOTE | 2018-09-19 11:59 | CP.PCM.CON ---
History of Present Illness - History of Present Illness History of Present Illness: 88 year old female with a history of diabetes mellitus , hypertension, with several months of multiple falls with apparently gait instability requiring a walker. Spoke to pt is confused unable to give history. Preliminary exams reveal elevated glucoses and WBC in urine. Baseline EKG is normal. Troponin x 3 is negative for AMI. Past Patient History - Past Medical History & Family History Past Medical History?: Yes - Past Social History Smoking Status: Current Some Days Smoker - CARDIAC Hx Cardiac Disorders: Yes (htn,hld) - PULMONARY Hx Respiratory Disorders: No - NEUROLOGICAL Hx Neurological Disorder: No - HEENT Hx HEENT Problems: Yes (glaucoma) - RENAL Hx Chronic Kidney Disease: No - ENDOCRINE/METABOLIC Hx Endocrine Disorders: Yes (dm2) - HEMATOLOGICAL/ONCOLOGICAL Hx Blood Disorders: No Hx AIDS: No Hx Human Immunodeficiency Virus (HIV): No - INTEGUMENTARY Hx Dermatological Problems: No - MUSCULOSKELETAL/RHEUMATOLOGICAL Hx Musculoskeletal Disorders: No Hx Falls: Yes - GASTROINTESTINAL Hx Gastrointestinal Disorders: No - GENITOURINARY/GYNECOLOGICAL Hx Genitourinary Disorders: No - PSYCHIATRIC Hx Psychophysiologic Disorder: No Hx Substance Use: No - SURGICAL HISTORY Hx Hysterectomy: Yes - ANESTHESIA Hx Anesthesia: Yes Hx Anesthesia Reactions: No Hx Malignant Hyperthermia: No Meds Allergies/Adverse Reactions: Allergies Allergy/AdvReac Type Severity Reaction Status Date / Time No Known Allergies Allergy Verified 09/18/18 08:13 - Medications Medications: Current Medications Atorvastatin Calcium (Lipitor) 20 mg PO HS [facility]PLAC[facility] Last Admin: 09/18/18 22:30 Dose: 20 mg Ciprofloxacin (Cipro) 500 mg PO Q12 [facility]; Protocol Enalapril Maleate (Vasotec) 20 mg PO DAILY [facility] Last Admin: 09/19/18 09:18 Dose: 20 mg Enoxaparin Sodium (Lovenox) 30 mg SC DAILY [facility] BY [facility]; Protocol Last Admin: 09/19/18 09:17 Dose: 30 mg Fluticasone Propionate (Flonase) 2 spr MARY DAILY REPLACED BY [facility] Last Admin: 09/19/18 09:15 Dose: 2 spr Glipizide (Glucotrol Xl) 10 mg PO ACBD REPLACED BY [facility] Last Admin: 09/19/18 09:15 Dose: 10 mg Hydrochlorothiazide (Hydrodiuril) 25 mg PO DAILY [facility] Last Admin: 09/19/18 09:17 Dose: 25 mg Sodium Chloride (Sodium Chloride 0.45%) 1,000 mls @ 60 mls/hr IV .[id number] REPLACED BY [facility] Stop: 09/19/18 20:14 Last Admin: 09/18/18 20:15 Dose: 60 mls/hr Insulin Human Regular (Humulin R) 0 units SC ACHS REPLACED BY [facility]; Protocol Last Admin: 09/19/18 08:55 Dose: Not Given Latanoprost (Xalatan Opht) 1 drop OU HS [facility]PL[facility]ED BY [facility] Last Admin: 09/18/18 22:33 Dose: 1 drop Physical Exam - Constitutional Appears: Confused - Neck Exam Neck exam: Positive for: Normal Inspection - Respiratory Exam Respiratory Exam: Clear to Auscultation Bilateral - Cardiovascular Exam Cardiovascular Exam: REGULAR RHYTHM - GI/Abdominal Exam GI & Abdominal Exam: Normal Bowel Sounds - Extremities Exam Extremities exam: Positive for: normal inspection Results - Vital Signs Recent Vital Signs: Last Vital Signs Temp 97.5 F L 09/19/18 07:48 Pulse 84 09/19/18 07:48 Resp 20 09/19/18 07:48 BP 151/74 H 09/19/18 07:48 Pulse Ox 98 09/19/18 07:48 - Labs Result Diagrams: 09/18/18 08:35 09/19/18 04:30 Labs: Laboratory Results - last 24 hr 09/18/18 09/18/18 09/18/18 15:24 15:24 15:58 Sodium Potassium Chloride Carbon Dioxide Anion Gap BUN Creatinine Est GFR ( Amer) Est GFR (Non-Af Amer) POC Glucose (mg/dL) 256 H Random Glucose Hemoglobin A1c 8.5 H Calcium Magnesium Total Bilirubin AST ALT Alkaline Phosphatase Troponin I < 0.0120 Total Protein Albumin Globulin Albumin/Globulin Ratio Triglycerides 218 H Cholesterol 202 H LDL Cholesterol Direct 147 H HDL Cholesterol 37 TSH 3rd Generation 2.58 Urine Color Urine Clarity Urine pH Ur Specific [place] Urine Protein Urine Glucose (UA) Urine Ketones Urine Blood Urine Nitrate Urine Bilirubin Urine Urobilinogen Ur Leukocyte Esterase Urine RBC (Auto) Urine Microscopic WBC Ur Squamous Epith Cells Urine Bacteria 09/18/18 09/18/18 09/18/18 21:03 21:24 23:30 Sodium Potassium Chloride Carbon Dioxide Anion Gap BUN Creatinine Est GFR ( Amer) Est GFR (Non-Af Amer) POC Glucose (mg/dL) 225 H Random Glucose Hemoglobin A1c Calcium Magnesium Total Bilirubin AST ALT Alkaline Phosphatase Troponin I < 0.0120 Total Protein Albumin Globulin Albumin/Globulin Ratio Triglycerides Cholesterol LDL Cholesterol Direct HDL Cholesterol TSH 3rd Generation Urine Color Yellow Urine Clarity Slighty-cloudy Urine pH 5.0 Ur Specific [place] 1.013 Urine Protein Negative Urine Glucose (UA) >=500 Urine Ketones Negative Urine Blood Negative Urine Nitrate Negative Urine Bilirubin Negative Urine Urobilinogen 0.2-1.0 Ur Leukocyte Esterase Neg Urine RBC (Auto) 2 Urine Microscopic WBC < 1 Ur Squamous Epith Cells 2 Urine Bacteria Many H 09/19/18 09/19/18 09/19/18 04:30 05:55 08:10 Sodium 138 Potassium 3.2 L Chloride 98 Carbon Dioxide 25 Anion Gap 18 BUN 12 Creatinine 1.2 Est GFR ( Amer) 52 Est GFR (Non-Af Amer) 43 POC Glucose (mg/dL) 247 H Random Glucose 225 H Hemoglobin A1c Calcium 9.9 Magnesium 2.0 Total Bilirubin 1.0 AST 13 L D ALT 19 Alkaline Phosphatase 69 Troponin I < 0.0120 Total Protein 7.2 Albumin 4.1 Globulin 3.1 Albumin/Globulin Ratio 1.3 Triglycerides Cholesterol LDL Cholesterol Direct HDL Cholesterol TSH 3rd Generation Urine Color Urine Clarity Urine pH Ur Specific [place] Urine Protein Urine Glucose (UA) Urine Ketones Urine Blood Urine Nitrate Urine Bilirubin Urine Urobilinogen Ur Leukocyte Esterase Urine RBC (Auto) Urine Microscopic WBC Ur Squamous Epith Cells Urine Bacteria 09/19/18 10:38 Sodium Potassium Chloride Carbon Dioxide Anion Gap BUN Creatinine Est GFR ( Amer) Est GFR (Non-Af Amer) POC Glucose (mg/dL) 273 H Random Glucose Hemoglobin A1c Calcium Magnesium Total Bilirubin AST ALT Alkaline Phosphatase Troponin I Total Protein Albumin Globulin Albumin/Globulin Ratio Triglycerides Cholesterol LDL Cholesterol Direct HDL Cholesterol TSH 3rd Generation Urine Color Urine Clarity Urine pH Ur Specific [place] Urine Protein Urine Glucose (UA) Urine Ketones Urine Blood Urine Nitrate Urine Bilirubin Urine Urobilinogen Ur Leukocyte Esterase Urine RBC (Auto) Urine Microscopic WBC Ur Squamous Epith Cells Urine Bacteria Assessment & Plan - Assessment and Plan (Free Text) Assessment: Etiology of Syncope is unclear No clinical evidence of ischemia AMI Baseline EKG is normal Will obtain ECHOcardiogram observe on Tele
[2018-09-19 12:38] LABS: HEMOGLOBIN 14.5 g/dL (12.0-16.0); MEAN CORPUSCULAR HGB CONC 33.7 g/dL (33.0-37.0); RBC 5.18 Mil/uL (3.80-5.20); WHITE BLOOD COUNT 8.4 K/uL (4.8-10.8)
--- NOTE | 2018-09-19 12:50 | CARD ---
APPROVED REPORT Date of service: 09/18/2018 EKG Measurement Heart [id number] <Conclusion> Normal sinus rhythm Possible Left atrial enlargement Borderline ECG
[2018-09-19 13:06] LABS: CALCIUM 9.7 mg/dL (8.4-10.2)
--- NOTE | 2018-09-19 14:11 | CP.PCM.CON ---
History of Present Illness - History of Present Illness History of Present Illness: Neurology Consultation Note: Consult requested by Dr. Whittington Mrs. Ko is an 88-year-old woman with a past medical history of HTN, HLD, who has been having worsening gait over the past several months and has had frequent falls. There had never been loss of consciousness according to the . He recalls 4 different falls and they all appear to be mechanical for some reason or another. 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 According to the patient's , his has not left the house in the last 6 months due to concern that there is construction on [employer] and she is afraid of falling. She has been deconditioned and was recommended PT, but was not able to tolerated it. Review of Systems - Constitutional Constitutional: As Per HPI - EENT Eyes: absent: As Per HPI, Blind Spots, Blurred Vision, Change in Vision, Decreased Night Vision, Diplopia, Discharge, Dry Eye, Exophthalmos, Floaters, Irritation, Itchy Eyes, Loss of Peripheral Vision, Pain, Photophobia, Requires Corrective Lenses, Sees Flashes, Spots in Vision, Tunnel Vision, Other Visual Disturbances, Loss of Vision, Other Ears: absent: As Per HPI, Decreased Hearing, Ear Discharge, Ear Pain, Tinnitus, Abnormal Hearing, Disequilibrium, Dizziness, Other Nose/Mouth/Throat: absent: As Per HPI, Epistaxis, Nasal Congestion, Nasal Discharge, Nasal Obstruction, Nasal Trauma, Nose Pain, Post Nasal Drip, Sinus Pain, Sinus Pressure, Bleeding Gums, Change in Voice, Dental Pain, Dry Mouth, Dysphagia, Halitosis, Hoarsness, Lip Swelling, Mouth Lesions, Mouth Pain, Odynophagia, Sore Throat, Throat Swelling, Tongue Swelling, Facial Pain, Neck Pain, Neck Mass, Other - Cardiovascular Cardiovascular: absent: As Per HPI, Acrocyanosis, Chest Pain, Chest Pain at Rest, Chest Pain with Activity, Claudication, Diaphoresis, Dyspnea, Dyspnea on Exertion, Edema, Irregular Heart Rhythm, Pain Radiating to Arm/Neck/Jaw, Leg Edema, Leg Ulcers, Lightheadedness, Orthopnea, Palpitations, Paroxysmal Nocturnal Dyspnea, Pedal Edema, Radiating Pain, Rapid Heart Rate, Slow Heart Rate, Syncope, Other - Respiratory Respiratory: absent: As Per HPI, Cough, Dyspnea, Hemoptysis, Dyspnea on Exertion, Wheezing, Snoring, Stridor, Pain on Inspiration, Chest Congestion, Excessive Mucous Production, Change in Mucous Color, Pain with Coughing, Other - Gastrointestinal Gastrointestinal: absent: As Per HPI, Abdominal Pain, Belching, Bloating, Change in Bowel Habits, Change in Stool Character, Coffee Ground Emesis, Constipation, Cramping, Diarrhea, Dyspepsia, Dysphagia, Early Satiety, Excessive Flatus, Fecal Incontinence, Heartburn, Hematemesis, Hematochezia, Loose Stools, Melena, Nausea, Odynophagia, Temesmus, Vomiting, Other - Musculoskeletal Musculoskeletal: absent: As Per HPI, Abnormal Gait, Arthralgias, Atrophy, Back Pain, Deformity, Joint Swelling, Limited Range of Motion, Loss of Height, Muscle Cramps, Muscle Weakness, Myalgias, Neck Pain, Numbness, Radiating Pain into Limb, Stiffness, Tingling, Other - Integumentary Integumentary: absent: As Per HPI, Acne, Alopecia, Bleeding Lesions, Change in Hair, Change in Nails, Change in Pigmentation, Changing Lesions, Dry Skin, Erythema, Furuncle, Hirsutism, Lesions, New Lesions, Non-Healing Lesions, Photosensitivity, Pruritus, Rash, Skin Pain, Skin Ulcer, Sores, Striae, Swelling, Unusual Bruising, Wounds, Jaundice, Other - Neurological Neurological: As Per HPI - Psychiatric Psychiatric: absent: As Per HPI, Abnormal Sleep Pattern, Anhedonia, Anxiety, Auditory Hallucinations, Behavioral Changes, Change in Appetite, Change in Libido, Confusion, Depression, Difficulty Concentrating, Hallucinations, Homicidal Ideation, Hopelessness, Irritability, Memory Loss, Mood Swings, Panic Attacks, Paranoia, Suicidal Ideation, Visual Hallucinations, Tactile Hallucinations, Other - Endocrine Endocrine: absent: As Per HPI, Change in Body Appearance, Change in Libido, Cold Intolorance, Deepening of Voice, Excessive Sweating, Fatigue, Flushing, Heat Intolorance, Increase in Ring/Shoe/Hat Size, Palpitations, Polydipsia, Polyphagia, Polyuria, Other - Hematologic/Lymphatic Hematologic: absent: As Per HPI, Easy Bleeding, Easy Bruising, Lymphadenopathy, Other Past Patient History - Past Medical History & Family History Past Medical History?: Yes - Past Social History Smoking Status: Current Some Days Smoker - CARDIAC Hx Cardiac Disorders: Yes (htn,hld) - PULMONARY Hx Respiratory Disorders: No - NEUROLOGICAL Hx Neurological Disorder: No - HEENT Hx HEENT Problems: Yes (glaucoma) - RENAL Hx Chronic Kidney Disease: No - ENDOCRINE/METABOLIC Hx Endocrine Disorders: Yes (dm2) - HEMATOLOGICAL/ONCOLOGICAL Hx Blood Disorders: No Hx AIDS: No Hx Human Immunodeficiency Virus (HIV): No - INTEGUMENTARY Hx Dermatological Problems: No - MUSCULOSKELETAL/RHEUMATOLOGICAL Hx Musculoskeletal Disorders: No Hx Falls: Yes - GASTROINTESTINAL Hx Gastrointestinal Disorders: No - GENITOURINARY/GYNECOLOGICAL Hx Genitourinary Disorders: No - PSYCHIATRIC Hx Psychophysiologic Disorder: No Hx Substance Use: No - SURGICAL HISTORY Hx Hysterectomy: Yes - ANESTHESIA Hx Anesthesia: Yes Hx Anesthesia Reactions: No Hx Malignant Hyperthermia: No Meds Allergies/Adverse Reactions: Allergies Allergy/AdvReac Type Severity Reaction Status Date / Time No Known Allergies Allergy Verified 09/18/18 08:13 - Medications Medications: Current Medications Atorvastatin Calcium (Lipitor) 20 mg PO HS [facility] Last Admin: 09/18/18 22:30 Dose: 20 mg Ciprofloxacin (Cipro) 500 mg PO Q12 [facility]; Protocol Last Admin: 09/19/18 12:40 Dose: 500 mg Enalapril Maleate (Vasotec) 20 mg PO DAILY [facility] Last Admin: 09/19/18 09:18 Dose: 20 mg Enoxaparin Sodium (Lovenox) 30 mg SC DAILY [facility]; Protocol Last Admin: 09/19/18 09:17 Dose: 30 mg Fluticasone Propionate (Flonase) 2 spr MARY DAILY [facility] Last Admin: 09/19/18 09:15 Dose: 2 spr Glipizide (Glucotrol Xl) 10 mg PO ACBD [facility] Last Admin: 09/19/18 09:15 Dose: 10 mg Hydrochlorothiazide (Hydrodiuril) 25 mg PO DAILY [facility] Last Admin: 09/19/18 09:17 Dose: 25 mg Sodium Chloride (Sodium Chloride 0.45%) 1,000 mls @ 60 mls/hr IV .[id number] [facility] Stop: 09/19/18 20:14 Last Admin: 09/18/18 20:15 Dose: 60 mls/hr Insulin Human Regular (Humulin R) 0 units SC ACHS [facility]; Protocol Last Admin: 09/19/18 12:41 Dose: 3 units Latanoprost (Xalatan Opht) 1 drop OU HS [facility] Last Admin: 09/18/18 22:33 Dose: 1 drop Repaglinide (Prandin) 2 mg PO TIDWM [facility] Physical Exam - Constitutional Appears: Cachectic, Chronically Ill - Head Exam Head Exam: ATRAUMATIC, NORMAL INSPECTION, NORMOCEPHALIC - Eye Exam Eye Exam: EOMI, Normal appearance, PERRL - ENT Exam ENT Exam: Mucous Membranes Moist, Normal Exam - Neck Exam Neck exam: Positive for: Normal Inspection - Respiratory Exam Respiratory Exam: Clear to Auscultation Bilateral, NORMAL BREATHING PATTERN - Cardiovascular Exam Cardiovascular Exam: REGULAR RHYTHM, +S1, +S2 - GI/Abdominal Exam GI & Abdominal Exam: Normal Bowel Sounds, Soft. absent: Tenderness - Neurological Exam Neurological exam: Abnormal Gait, Alert, CN II-XII Intact, Oriented x3, Reflexes Normal Additional comments: Generalized weakness. - Psychiatric Exam Psychiatric exam: Normal Affect, Normal Mood - Skin Skin Exam: Dry, Intact, Normal Color, Warm Results - Vital Signs Recent Vital Signs: Last Vital Signs Temp 97.5 F L 09/19/18 12:00 Pulse 86 09/19/18 12:00 Resp 20 09/19/18 12:00 BP 147/82 09/19/18 12:00 Pulse Ox 94 L 09/19/18 12:00 - Labs Result Diagrams: 09/19/18 12:27 09/19/18 12:27 Labs: Laboratory Results - last 24 hr 09/18/18 09/18/18 09/18/18 15:24 15:24 15:58 WBC RBC Hgb Hct MCV MCH MCHC RDW Plt Count Sodium Potassium Chloride Carbon Dioxide Anion Gap BUN Creatinine Est GFR ( Amer) Est GFR (Non-Af Amer) POC Glucose (mg/dL) 256 H Random Glucose Hemoglobin A1c 8.5 H Calcium Magnesium Total Bilirubin AST ALT Alkaline Phosphatase Troponin I < 0.0120 Total Protein Albumin Globulin Albumin/Globulin Ratio Triglycerides 218 H Cholesterol 202 H LDL Cholesterol Direct 147 H HDL Cholesterol 37 TSH 3rd Generation 2.58 Urine Color Urine Clarity Urine pH Ur Specific [place] Urine Protein Urine Glucose (UA) Urine Ketones Urine Blood Urine Nitrate Urine Bilirubin Urine Urobilinogen Ur Leukocyte Esterase Urine RBC (Auto) Urine Microscopic WBC Ur Squamous Epith Cells Urine Bacteria 09/18/18 09/18/18 09/18/18 21:03 21:24 23:30 WBC RBC Hgb Hct MCV MCH MCHC RDW Plt Count Sodium Potassium Chloride Carbon Dioxide Anion Gap BUN Creatinine Est GFR ( Amer) Est GFR (Non-Af Amer) POC Glucose (mg/dL) 225 H Random Glucose Hemoglobin A1c Calcium Magnesium Total Bilirubin AST ALT Alkaline Phosphatase Troponin I < 0.0120 Total Protein Albumin Globulin Albumin/Globulin Ratio Triglycerides Cholesterol LDL Cholesterol Direct HDL Cholesterol TSH 3rd Generation Urine Color Yellow Urine Clarity Slighty-cloudy Urine pH 5.0 Ur Specific [place] 1.013 Urine Protein Negative Urine Glucose (UA) >=500 Urine Ketones Negative Urine Blood Negative Urine Nitrate Negative Urine Bilirubin Negative Urine Urobilinogen 0.2-1.0 Ur Leukocyte Esterase Neg Urine RBC (Auto) 2 Urine Microscopic WBC < 1 Ur Squamous Epith Cells 2 Urine Bacteria Many H 09/19/18 09/19/18 09/19/18 04:30 05:55 08:10 WBC RBC Hgb Hct MCV MCH MCHC RDW Plt Count Sodium 138 Potassium 3.2 L Chloride 98 Carbon Dioxide 25 Anion Gap 18 BUN 12 Creatinine 1.2 Est GFR ( Amer) 52 Est GFR (Non-Af Amer) 43 POC Glucose (mg/dL) 247 H Random Glucose 225 H Hemoglobin A1c Calcium 9.9 Magnesium 2.0 Total Bilirubin 1.0 AST 13 L D ALT 19 Alkaline Phosphatase 69 Troponin I < 0.0120 Total Protein 7.2 Albumin 4.1 Globulin 3.1 Albumin/Globulin Ratio 1.3 Triglycerides Cholesterol LDL Cholesterol Direct HDL Cholesterol TSH 3rd Generation Urine Color Urine Clarity Urine pH Ur Specific [place] Urine Protein Urine Glucose (UA) Urine Ketones Urine Blood Urine Nitrate Urine Bilirubin Urine Urobilinogen Ur Leukocyte Esterase Urine RBC (Auto) Urine Microscopic WBC Ur Squamous Epith Cells Urine Bacteria 09/19/18 09/19/18 09/19/18 10:38 12:27 12:27 WBC 8.4 RBC 5.18 Hgb 14.5 Hct 43.0 MCV 83.0 MCH 28.0 MCHC 33.7 RDW 14.0 Plt Count 151 Sodium 134 Potassium 3.4 L Chloride 99 Carbon Dioxide 23 Anion Gap 15 BUN 11 Creatinine 1.2 Est GFR ( Amer) 52 Est GFR (Non-Af Amer) 43 POC Glucose (mg/dL) 273 H Random Glucose 223 H Hemoglobin A1c Calcium 9.7 Magnesium Total Bilirubin AST ALT Alkaline Phosphatase Troponin I Total Protein Albumin Globulin Albumin/Globulin Ratio Triglycerides Cholesterol LDL Cholesterol Direct HDL Cholesterol TSH 3rd Generation Urine Color Urine Clarity Urine pH Ur Specific [place] Urine Protein Urine Glucose (UA) Urine Ketones Urine Blood Urine Nitrate Urine Bilirubin Urine Urobilinogen Ur Leukocyte Esterase Urine RBC (Auto) Urine Microscopic WBC Ur Squamous Epith Cells Urine Bacteria Assessment & Plan (1) Frequent falls Assessment and Plan: This appears to be due to deconditioning and generalized weakness. She does not have any focal deficits, and never lost consciousness. There is no report of abnormal movements during the falls. Seizure is not suspected. However, the patient does have gait instability and could have posterior circulation compromise. I recommend a CTA of the head/neck for further evaluation. An EEG may also be helpful to rule out interictal activity. I recommend PT/OT eval and treatment as well Thank you for this consultation. Status: Acute
--- NOTE | 2018-09-19 15:48 | PN ---
DATE: 09/19/2018 ENDO FOLLOWUP NOTE ROOM: 402. SUBJECTIVE: This is an 88-year-old female with recent uncontrolled type 2 diabetes presenting here with a syncopal episode and frequent falls at home and is now being followed closely for metabolic management. She is also undergoing neurologic and cardiac workup as noted. Her glycemic levels overnight are fluctuating and have ranged from 247-273 mg/dL. Her chemistry showed a BUN of 11, sodium 134, potassium 3.4, chloride 99, CO2 of 23, glucose 223 and creatinine 1.2. Her hemoglobin A1c is 8.5%. This is actually elevated and indicative of suboptimal metabolic control of her diabetic condition. So at this time, we will modify once again her current oral regimen and actually add Prandin given as 2 mg t.i.d. with meals as ordered. We will obtain serial chemistries and supplement accordingly as needed. We will also continue the glipizide given as 10 mg b.i.d. before meals as ordered. We will hold possible resumption of her metformin therapy as noted. We will also continue the IV hydration and supplement accordingly as needed. We will follow the advice accordingly. Kerri Bacon MD
[2018-09-19] MEDS: Sodium Chloride 0.45% 1,000 ML IV SCH (17:24)
--- NOTE | 2018-09-19 20:09 | CARD ---
APPROVED REPORT Date of service: 09/19/2018 EXAM: Two-dimensional and M-mode echocardiogram with Doppler and color Doppler. Other Information Quality : FairRhythm : Tachycardia Technically limited study due to Poor Echo Window INDICATION Syncope 2D DIMENSIONS IVSd0.96 (0.7-1.1cm)LVDd3.72 (3.9-5.9cm) PWd1.04 (0.7-1.1cm)IVSs0.80 (0.8-1.2cm) LVDs2.14 (2.5-4.0cm)FS (%) 42.5 % PWs1.03 (0.8-1.2cm) M-Mode DIMENSIONS Left Atrium (MM)4.15 (2.5-4.0cm)Aortic Root2.68 (2.2-3.7cm) Aortic Cusp Exc.1.56 (1.5-2.0cm) Aortic Valve AoV Peak Zdrdujpf488.5cm/sAoV VTI29.2cmAO Peak GR.15mmHg LVOT Peak Dzgppyej202.1cm/sLVOT VTI17.56cmAO Mean GR.8mmHg AI P 1/2 [id number] Mitral Valve E/A ratio0.0 TDI E/Lateral E'0.0E/Medial E'0.0 Tricuspid Valve TR Peak Zvbfgrqt987it/sRAP [id number] Peak Gr.18mmHg [id number] LEFT VENTRICLE The left ventricle is normal size. There is normal left ventricular wall thickness. The left ventricular systolic function is normal. The estimated ejection fraction is 55-60% No regional wall motion abnormalities noted.. Transmitral Doppler flow pattern is Grade I-abnormal relaxation pattern. No left ventricle thrombus noted on this study. There is no ventricular septal defect visualized. There is no left ventricular aneurysm. There is no mass noted in the left ventricle. RIGHT VENTRICLE The right ventricle is normal size. There is normal right ventricular wall thickness. The right ventricular systolic function is normal. ATRIA The left atrium is mildly dilated. The right atrium size is normal. The interatrial septum is intact with no evidence for an atrial septal defect. AORTIC VALVE The aortic valve is normal in structure. Moderate aortic regurgitation is present. There is no aortic valvular stenosis. There is no aortic valvular vegetation. MITRAL VALVE The mitral valve is normal in structure. There is no evidence of mitral valve prolapse. There is no mitral valve stenosis. There is trace mitral valve regurgitation noted. TRICUSPID VALVE The tricuspid valve is normal in structure. There is trace tricuspid valve regurgitation noted. RVSP is calculated at 23 mm Hg. There is no tricuspid valve prolapse or vegetation. There is no tricuspid valve stenosis. PULMONIC VALVE The pulmonary valve is normal in structure. There is no pulmonic valvular regurgitation. There is no pulmonic valvular stenosis. GREAT VESSELS The aortic root is normal in size. The ascending aorta is normal in size. The pulmonary artery is normal. The IVC is not well visualized. PERICARDIAL EFFUSION There is no pericardial effusion. There is no pleural effusion. <Conclusion> Technically difficult study The estimated ejection fraction is 55-60% Transmitral Doppler flow pattern is Grade I-abnormal relaxation pattern. The left atrium is mildly dilated. Moderate aortic regurgitation is present. There is trace mitral valve regurgitation noted. There is trace tricuspid valve regurgitation noted. RVSP is calculated at 23 mm Hg. The IVC is not well visualized.
--- NOTE | 2018-09-19 20:43 | CP.PCM.PN ---
Subjective - Date & Time of Evaluation Date of Evaluation: 09/19/18 Time of Evaluation: 22:22 - Subjective Subjective: Above noted Objective - Vital Signs/Intake and Output Vital Signs (last 24 hours): Temp Pulse Resp BP Pulse Ox 97.7 F 86 18 136/77 94 L 09/19/18 20:00 09/19/18 20:00 09/19/18 20:00 09/19/18 20:00 09/19/18 20:00 - Medications Medications: Current Medications Atorvastatin Calcium (Lipitor) 20 mg PO HS [facility] Last Admin: 09/18/18 22:30 Dose: 20 mg Ciprofloxacin (Cipro) 500 mg PO Q12 [facility]; Protocol Last Admin: 09/19/18 12:40 Dose: 500 mg Enalapril Maleate (Vasotec) 20 mg PO DAILY [facility] Last Admin: 09/19/18 09:18 Dose: 20 mg Enoxaparin Sodium (Lovenox) 30 mg SC DAILY [facility]; Protocol Last Admin: 09/19/18 09:17 Dose: 30 mg Fluticasone Propionate (Flonase) 2 spr MARY DAILY [facility] Last Admin: 09/19/18 09:15 Dose: 2 spr Glipizide (Glucotrol Xl) 10 mg PO ACBD [facility] Last Admin: 09/19/18 17:21 Dose: 10 mg Hydrochlorothiazide (Hydrodiuril) 25 mg PO DAILY [facility] Last Admin: 09/19/18 09:17 Dose: 25 mg Insulin Human Regular (Humulin R) 0 units SC ACHS [facility]; Protocol Last Admin: 09/19/18 17:22 Dose: Not Given Latanoprost (Xalatan Opht) 1 drop OU HS [facility] Last Admin: 09/18/18 22:33 Dose: 1 drop Repaglinide (Prandin) 0.5 mg PO TIDWM [facility] Last Admin: 09/19/18 17:23 Dose: 0.5 mg - Labs Labs: 09/19/18 12:27 09/19/18 12:27 - Respiratory Exam Respiratory Exam: NORMAL BREATHING PATTERN - Cardiovascular Exam Cardiovascular Exam: REGULAR RHYTHM - GI/Abdominal Exam GI & Abdominal Exam: Normal Bowel Sounds Assessment and Plan - Assessment and Plan (Free Text) Assessment: Recurrent falls mechanical Admit to telemetry Neurology Cardiolgy Urinary retention UTI Hx Incontinence Urology Urine CS ABX MIDDM Diabetic nepphropathy Nephrology Endo Dysthymia?? Psych COPD
[2018-09-19] MEDS: Latanoprost 0.005% Opht SOUTION OU SCH (22:14)
--- NOTE | 2018-09-20 04:21 | PN ---
DATE: 09/19/2018 FOLLOWUP RENAL CONSULTATION LOCATION: Room 411, bed 1. REQUESTED BY: Nickolas Whittington MD REASON FOR FOLLOWUP: Increased BUN and creatinine, hypertension, and electrolyte imbalance, and also urinary retention. SUBJECTIVE: Ms. Ko is an 88-year-old elderly very pleasant female with past medical history significant for diabetes, hypertension, hyperlipidemia, and history of kidney stones in the past with recurrent falls, recently was admitted after she sustained two falls on the day of admission without any injury. The patient also complains feeling slightly thirsty, nauseous today, no palpitation. No injury. The patient does complain of lower abdominal discomfort. The patient had bladder scan yesterday evening and found to have 450 mL of urine and Almanzar catheter for temporary straight cath was placed, drained about 650 mL of urine as per the registered nurse this morning and the patient still complains of lower abdominal discomfort and distention. PHYSICAL EXAMINATION: VITAL SIGNS: Blood pressure this morning 151/74, pulse 84, respirations 20, temperature 97.5, saturation 98%, height 5 feet, weight is 126 pounds. GENERAL: Ms. Ko is an 88-year-old elderly female, moderately built, moderately nourished, not in acute distress. HEENT: Pupils are normal and reactive to light and accommodation. Conjunctivae pink. Sclerae anicteric. Tongue is moist. Trachea is midline. LUNGS: Symmetric on both sides. Bilateral breath sounds present. Clear to auscultation. CARDIOVASCULAR SYSTEM: Venus at the fifth intercostal space, midclavicular line. S1 and S2 audible. No murmur or gallop. ABDOMEN: Soft and distended lower abdomen and dullness on percussion and gxwe-gk-xhjrlhrl tenderness. No guarding, no rigidity. CENTRAL NERVOUS SYSTEM: The patient is alert, awake, and oriented x2-3. Sensory and motor system is within normal limits. EXTREMITIES: No cyanosis, no clubbing, and no edema. Status post straight catheter placement until this afternoon and drained about 600 mL of clear yellow urine. CURRENT MEDICATIONS: Include as follows: Ciprofloxacin 500 mg p.o. every 12 hours, Flonase 2 sprays daily, Glucotrol-XL 10 mg daily, Humulin R for sliding scale, hydrochlorothiazide 25 mg p.o. daily, Lipitor 20 mg p.o. at bedtime, Lovenox 30 mg subcu daily, Prandin 0.5 mg p.o. t.i.d., Vasotec 20 mg p.o. daily, and Exelon eyedrops 1 drop OU. LABORATORY DATA: Include as follows: As of 09/19/2018, WBC 8.4, hemoglobin 14.5, hematocrit 43, and platelets 151. Sodium 134, potassium 3.4, chloride 99, CO2 of 23, BUN 11, creatinine 1.4, glucose 223, and calcium 9.7. DIAGNOSTIC DATA: Echocardiogram as of 09/19/2018, technically difficult study. The estimated ejection fraction is 55% to 60% and transmitral Doppler flow pattern is grade 1. Abnormal relaxation pattern. The left ____ is mild dilated and moderate aortic regurgitation is present. There is a trace mitral valve regurgitation and there is trace tricuspid valve regurgitation noted. Right ventricular systolic pressure is calculated at about 23 mmHg. IVC is not well visualized. ASSESSMENT AND PLAN: In summary, Ms. Ko is an 88-year-old elderly female with a history of hypertension, diabetes, osteoporosis, history of nephrolithiasis in the past, who was admitted with recurrent falls, status post fall x2 prior to the admission and electrolyte imbalance and also urinary retention. 1. Urinary retention with overflow and status post straight cath yesterday and also this afternoon. Continue to monitor urine output and bladder scan and straight cath as needed. Urology consult for further evaluation, may need cystoscopy and urodynamic studies. 2. Hypertension. Continue her current blood pressure medication Vasotec and hydrochlorothiazide. 3. Diabetes. Continue Glucotrol-XL and Humulin also sliding scale and Prandin as per Dr. Nickolas Whittington. We will follow with you. 4. Supplement potassium as needed. The patient was given KCL, K-Dur 20 mEq p.o. x1. Repeat BMP, magnesium level in a.m. Thank you for allowing me to participate in your patient's care. Carmelo Shin MD
--- NOTE | 2018-09-20 07:05 | CON ---
DATE: 09/18/2018 RENAL CONSULTATION LOCATION: The patient is located in room 402, bed 2. REQUESTED BY: Nickolas Whittington MD REASON FOR RENAL CONSULTATION: Hypertension, history of proteinuria, and CKD for further evaluation and status post recurrent falls. HISTORY OF PRESENT ILLNESS: Ms. Ko is an 88-year-old very pleasant elderly female with a history of longstanding hypertension, diabetes, who was staying with her , was admitted with chief complaint of feeling dizzy and status post fall x2. I saw the patient's son at bedside. She had recurrent falls recently. Denies any chest pain or palpitation. Denies any fever or cough. No abdominal pain. No edema of the legs. The patient complains of lower abdominal discomfort at this time and status post voiding a small amount of urine as per the registered nurse. The patient is complaining of lower abdominal discomfort. PAST MEDICAL HISTORY: Significant for longstanding hypertension and diabetes. Denies any coronary artery disease. Denies any CVA. PAST SURGICAL HISTORY: Status post hysterectomy and surgery for the kidney stones in 1969. ALLERGIES: NO KNOWN DRUG ALLERGIES. SOCIAL HISTORY: The patient is a smoker, quit about few weeks ago, used to smoke about half a pack for more than 70 years. No alcohol. No drug abuse. PERSONAL HISTORY: She is . She has one son and she lives with her . HOME MEDICATIONS: Include as follows: Hydrochlorothiazide 25 mg p.o. daily, Zocor 20 mg daily, metformin 1000 mg p.o. b.i.d., Xalatan eyedrops, Glucotrol XL 10 mg p.o. daily, Flonase, and enalapril 20 mg p.o. daily. CURRENT MEDICATIONS: In the hospital include as follows: Flonase, Glucotrol XL, also Humulin R sliding scale, hydrochlorothiazide 25 mg p.o. daily, Lipitor 20 mg p.o. at bedtime, Lovenox 30 mg subcu daily, IV fluids half normal saline at 60 mL per hour, enalapril 20 mg p.o. daily, Xalatan eyedrops. REVIEW OF SYSTEMS: Significant for status post fall x2 without any injury. No loss of consciousness. All other review of systems are reviewed and negative. PHYSICAL EXAMINATION: VITAL SIGNS: As follows: Blood pressure this evening 150/72, pulse 76, respiration 18, temperature 97.7, saturation 97%, height 5 feet, weight is 126 pounds. GENERAL: Ms. Ko is an 88-year-old elderly female, moderately built, moderately nourished, not in acute distress. HEENT: Pupils normal and reactive to light and accommodation. Conjunctivae pink. Sclerae anicteric. Tongue is dry. Trachea is midline. No thyroid enlargement. LUNGS: Symmetric on both sides. Bilateral breath sounds present. Clear to auscultation. CARDIOVASCULAR SYSTEM: Farrell at the fifth intercostal space, midclavicular line. S1, S2 audible. No murmur or gallop. ABDOMEN: Normal in appearance. Slightly distended, soft, moderate suprapubic tenderness present. No guarding. No rigidity. CENTRAL NERVOUS SYSTEM: The patient is alert, awake, and oriented x3. Nonfocal neuro examination. Cranial nerves II through XII grossly intact. Sensory and motor system is within normal limits. EXTREMITIES: No cyanosis, no clubbing, no edema. LABORATORY DATA: Include as follows: As of 09/17/2018, WBC 1.3, hemoglobin 14.7, hematocrit is 43.9, platelets 131. Sodium 137, potassium 4.5, chloride 99, CO2 25, BUN 12, creatinine 1.2, glucose 262, and hemoglobin A1c 8.5, and calcium 8.7. Total bili 1.1, AST 31, ALT 11, alkaline phosphatase is 18, total protein 7.4, albumin is 4.1, cholesterol is 202, triglycerides 218, LDL 147, HDL 37, TSH is 2.58. Urinalysis, yellow slightly cloudy, pH 5, specific gravity 1.013, protein is negative, glucose is more than 500, ketones negative, blood negative, nitrites negative, bilirubin negative, urobilinogen is 0.22 and 1, leukocyte esterase is negative. RBC 2, WBC less than 1, bacteria many. IMPRESSION AND PLAN: In summary, Ms. Ko is an 88-year-old elderly female with a history of hypertension, diabetes, hyperlipidemia, ex-smoker quit about few weeks ago, was admitted with recurrent falls without any injury, any loss of consciousness, and tongue is drying. 1. Hypertension. Blood pressure is slightly high. Continue current medications, enalapril, and we will hold hydrochlorothiazide. 2. Mild dehydration, most likely secondary to decreased p.o. intake; on top of, patient is on hydrochlorothiazide. We will hold hydrochlorothiazide and we will start gentle intravenous hydration. 3. Status post fall, most likely secondary to intravascular depletion and dehydration, rule out cardiac arrhythmias. 4. Rule out bladder outlet obstruction. We will do bladder scan. If patient has residual urine more than 100 mL, we will do straight cath. We will repeat basic metabolic panel in a.m., check urine culture also. We will follow with her. Thank you for allowing me to participate in your patient's care. I discussed with Dr. Nickolas Whittington in rounds and patient's son at bedside also. Carmelo Shin MD
[2018-09-20] MEDS ORDERED: Lubricant Eye Drops UD OU PRN (08:47)
[2018-09-20] MEDS: GlipiZIDE 10 mg SR Tab PO SCH ×2 (08:52→18:00)
[2018-09-20] MEDS: Insulin Regular 100 units/ml SC SCH ×4 (08:55→22:38)
[2018-09-20] MEDS: Enoxaparin 30 mg Syringe SC SCH (08:56)
--- NOTE | 2018-09-20 10:05 | CP.PCM.PN ---
Subjective - Date & Time of Evaluation Date of Evaluation: 09/20/18 Time of Evaluation: 10:05 - Subjective Subjective: pt i seeen and examined, follow up consult is dictated #[id number] Objective - Vital Signs/Intake and Output Vital Signs (last 24 hours): Temp Pulse Resp BP Pulse Ox 98.9 F 103 H 20 106/66 96 09/20/18 08:03 09/20/18 08:03 09/20/18 08:03 09/20/18 08:03 09/20/18 08:03 - Medications Medications: Current Medications Artificial Tears (Artificial Tears) 1 drop OU RQ4 PRN PRN Reason: Dry eyes Atorvastatin Calcium (Lipitor) 20 mg PO HS [facility] Last Admin: 09/19/18 22:15 Dose: 20 mg Ciprofloxacin (Cipro) 500 mg PO Q12 [facility]; Protocol Last Admin: 09/20/18 08:52 Dose: 500 mg Enalapril Maleate (Vasotec) 20 mg PO DAILY [facility] Last Admin: 09/20/18 08:53 Dose: 20 mg Enoxaparin Sodium (Lovenox) 30 mg SC DAILY [facility]; Protocol Last Admin: 09/20/18 08:56 Dose: 30 mg Fluticasone Propionate (Flonase) 2 spr MARY DAILY [facility] Last Admin: 09/20/18 08:54 Dose: 2 spr Glipizide (Glucotrol Xl) 10 mg PO ACBD [facility] Last Admin: 09/20/18 08:52 Dose: 10 mg Hydrochlorothiazide (Hydrodiuril) 25 mg PO DAILY [facility] Last Admin: 09/19/18 09:17 Dose: 25 mg Insulin Human Regular (Humulin R) 0 units SC ACHS [facility]; Protocol Last Admin: 09/20/18 08:55 Dose: Not Given Latanoprost (Xalatan Opht) 1 drop OU HS [facility] Last Admin: 09/19/18 22:14 Dose: 1 drop Repaglinide (Prandin) 0.5 mg PO TIDWM [facility] Last Admin: 09/20/18 08:52 Dose: 0.5 mg - Labs Labs: 09/19/18 12:27 09/19/18 12:27
--- NOTE | 2018-09-20 10:22 | CARD ---
APPROVED REPORT Date of service: 09/18/2018 EKG Measurement Heart [id number] <Conclusion> Normal sinus rhythm Normal ECG
--- NOTE | 2018-09-20 11:05 | CP.PCM.PN ---
Subjective - Date & Time of Evaluation Date of Evaluation: 09/20/18 Time of Evaluation: 11:03 - Subjective Subjective: Neuro Follow-Up Note: Mrs. Ko was evaluated this morning at bedside with present. Pt denies any new complaints today. Pt's also has no concerns. He admits that the pt was ambulated to the bathroom this morning with assistance and did fairly well. For possible OLIVIA later this week. Objective - Vital Signs/Intake and Output Vital Signs (last 24 hours): Temp Pulse Resp BP Pulse Ox 98.9 F 103 H 20 106/66 96 09/20/18 08:03 09/20/18 08:03 09/20/18 08:03 09/20/18 08:03 09/20/18 08:03 - Medications Medications: Current Medications Artificial Tears (Artificial Tears) 1 drop OU RQ4 PRN PRN Reason: Dry eyes Atorvastatin Calcium (Lipitor) 20 mg PO HS [facility] Last Admin: 09/19/18 22:15 Dose: 20 mg Enalapril Maleate (Vasotec) 20 mg PO DAILY [facility] Last Admin: 09/20/18 08:53 Dose: 20 mg Enoxaparin Sodium (Lovenox) 30 mg SC DAILY [facility]; Protocol Last Admin: 09/20/18 08:56 Dose: 30 mg Fluticasone Propionate (Flonase) 2 spr MARY DAILY [facility] Last Admin: 09/20/18 08:54 Dose: 2 spr Glipizide (Glucotrol Xl) 10 mg PO ACBD [facility] Last Admin: 09/20/18 08:52 Dose: 10 mg Hydrochlorothiazide (Hydrodiuril) 25 mg PO DAILY [facility] Last Admin: 09/19/18 09:17 Dose: 25 mg Ceftriaxone Sodium 1 gm/ (Sodium Chloride) 100 mls @ 100 mls/hr IVPB DAILY [facility]; Protocol Insulin Human Regular (Humulin R) 0 units SC ACHS [facility]; Protocol Last Admin: 09/20/18 08:55 Dose: Not Given Latanoprost (Xalatan Opht) 1 drop OU HS [facility] Last Admin: 09/19/18 22:14 Dose: 1 drop Repaglinide (Prandin) 0.5 mg PO TIDWM [facility] Last Admin: 09/20/18 08:52 Dose: 0.5 mg - Labs Labs: 09/19/18 12:27 09/19/18 12:27 - Constitutional Appears: Well, Non-toxic, No Acute Distress - Head Exam Head Exam: ATRAUMATIC, NORMAL INSPECTION, NORMOCEPHALIC - Eye Exam Eye Exam: EOMI, Normal appearance Pupil Exam: NORMAL ACCOMODATION, PERRL - ENT Exam ENT Exam: Mucous Membranes Moist - Neck Exam Neck Exam: Full ROM, Normal Inspection - Respiratory Exam Respiratory Exam: NORMAL BREATHING PATTERN - Extremities Exam Extremities Exam: Full ROM. absent: Calf Tenderness, Pedal Edema Additional comments: generalized weakness noted more to BLE but moves all extremities - Back Exam Back Exam: Full ROM - Neurological Exam Neurological Exam: Alert, Altered, Awake, CN II-XII Intact, Reflexes Normal. absent: Oriented x3 Neuro motor strength exam: Left Upper Extremity: 4, Right Upper Extremity: 4, Left Lower Extremity: 3, Right Lower Extremity: 3 Additional comments: Speech clear AAO to person and place; disoriented to time. 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 No definite acute intracranial findings appreciable at this time. 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 These findings do not support a specific etiology. -CTA Head and Neck ordered, still needs to be done to r/o VBI--will f/u with results once completed. -Continue current treatment of underlying issues. -Fall precautions. -Continue PT and recommend rehab upon d/c. -Notify neuro team of any acute changes. Araceli Nguyen DNP, NUTRITION WORKER Case discussed with Dr. Matamoros Status: Acute
--- NOTE | 2018-09-20 11:53 | PCM.EEG ---
Electroencephalogram Report - Electroencephalogram Report Procedure Date: 09/19/18 Medication: Lipitor, Ceftriaxone, ASA Interpretation: Technical Information: This was a 16-channel EEG, 1-channel EKG , performed using an [employer] machine., electrodes were applied according to the 10/20 international placement system, impedances were less than 5 K Ohm. Start; 16;37 End; 17;22 Total 47 min. Clinical Information: This EEG was performed on a 88 -year old patient with a history of falls and confusion. EEG Detail: During resting wakefulness there was a symmetric posterior dominant rhythm at 7 Hz, 30-50 uV, which was reactive to eye opening and closing. Drowsiness was not seen. Sleep was not seen. Hyperventilation was not performed. Photic stimulation was performed and there were no changes in the record. ECG was associated with a normal sinus rhythm. 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 These findings do not support a specific etiology.
[2018-09-20 12:02] LABS: HEMOGLOBIN 14.6 g/dL (12.0-16.0); MEAN CELL VOLUME 82.7 fl (81.0-99.0); MEAN CORPUSCULAR HGB CONC 33.9 g/dL (33.0-37.0); RBC 5.22 Mil/uL (3.80-5.20); RED CELL DISTRIBUTION WIDTH 13.9 % (11.5-14.5); WHITE BLOOD COUNT 9.1 K/uL (4.8-10.8)
[2018-09-20 12:27] LABS: CALCIUM 9.8 mg/dL (8.4-10.2)
--- NOTE | 2018-09-20 12:47 | CP.PCM.CON ---
History of Present Illness - History of Present Illness History of Present Illness: consult requested for confusion and agitation pt is an 88-year-old woman with a past medical history of HTN, HLD, who has been having worsening gait over the past several months and has had frequent falls. There had never been loss of consciousness according to the . He reported at least 4 different falls on evaluation patient is anxious irritable, combative with care trying to get out of bed, speech loud but irrelevant , thought process not goal directed patient paranoid towards staff and , uncooperative with interview , alert awake oriented to person only Past Patient History - Past Medical History & Family History Past Medical History?: Yes - Past Social History Smoking Status: Current Some Days Smoker - CARDIAC Hx Cardiac Disorders: Yes (htn,hld) - PULMONARY Hx Respiratory Disorders: No - NEUROLOGICAL Hx Neurological Disorder: No - HEENT Hx HEENT Problems: Yes (glaucoma) - RENAL Hx Chronic Kidney Disease: No - ENDOCRINE/METABOLIC Hx Endocrine Disorders: Yes (dm2) - HEMATOLOGICAL/ONCOLOGICAL Hx Blood Disorders: No Hx AIDS: No Hx Human Immunodeficiency Virus (HIV): No - INTEGUMENTARY Hx Dermatological Problems: No - MUSCULOSKELETAL/RHEUMATOLOGICAL Hx Musculoskeletal Disorders: No Hx Falls: Yes - GASTROINTESTINAL Hx Gastrointestinal Disorders: No - GENITOURINARY/GYNECOLOGICAL Hx Genitourinary Disorders: No - PSYCHIATRIC Hx Psychophysiologic Disorder: No Hx Substance Use: No - SURGICAL HISTORY Hx Hysterectomy: Yes - ANESTHESIA Hx Anesthesia: Yes Hx Anesthesia Reactions: No Hx Malignant Hyperthermia: No Meds Allergies/Adverse Reactions: Allergies Allergy/AdvReac Type Severity Reaction Status Date / Time No Known Allergies Allergy Verified 09/18/18 08:13 - Medications Medications: Current Medications Artificial Tears (Artificial Tears) 1 drop OU RQ4 PRN PRN Reason: Dry eyes Atorvastatin Calcium (Lipitor) 20 mg PO HS [facility] Last Admin: 09/19/18 22:15 Dose: 20 mg Enalapril Maleate (Vasotec) 20 mg PO DAILY [facility] Last Admin: 09/20/18 08:53 Dose: 20 mg Enoxaparin Sodium (Lovenox) 30 mg SC DAILY [facility]; Protocol Last Admin: 09/20/18 08:56 Dose: 30 mg Fluticasone Propionate (Flonase) 2 spr MARY DAILY [facility] Last Admin: 09/20/18 08:54 Dose: 2 spr Glipizide (Glucotrol Xl) 10 mg PO ACBD [facility] Last Admin: 09/20/18 08:52 Dose: 10 mg Hydrochlorothiazide (Hydrodiuril) 25 mg PO DAILY [facility] Last Admin: 09/19/18 09:17 Dose: 25 mg Ceftriaxone Sodium 1 gm/ (Sodium Chloride) 100 mls @ 100 mls/hr IVPB DAILY [facility]; Protocol Insulin Human Regular (Humulin R) 0 units SC ACHS [facility]; Protocol Last Admin: 09/20/18 08:55 Dose: Not Given Latanoprost (Xalatan Opht) 1 drop OU HS [facility] Last Admin: 09/19/18 22:14 Dose: 1 drop Repaglinide (Prandin) 0.5 mg PO TIDWM [facility] Last Admin: 09/20/18 08:52 Dose: 0.5 mg Physical Exam - Psychiatric Exam Additional comments: pt seen in bed , angry mood irritable affect, poor eye contact, guarded paranoid, thought process shows loose association, denied suicidal or homicidal ideation denied perceptual disturbances alert awake oriented to person only Results - Vital Signs Recent Vital Signs: Last Vital Signs Temp 97.8 F 09/20/18 12:06 Pulse 97 H 09/20/18 12:06 Resp 20 09/20/18 12:06 BP 124/74 09/20/18 12:06 Pulse Ox 93 L 09/20/18 12:06 - Labs Result Diagrams: 09/20/18 11:55 09/20/18 11:55 Labs: Laboratory Results - last 24 hr 09/19/18 09/19/18 09/19/18 12:27 12:27 15:41 WBC 8.4 RBC 5.18 Hgb 14.5 Hct 43.0 MCV 83.0 MCH 28.0 MCHC 33.7 RDW 14.0 Plt Count 151 Sodium 134 Potassium 3.4 L Chloride 99 Carbon Dioxide 23 Anion Gap 15 BUN 11 Creatinine 1.2 Est GFR ( Amer) 52 Est GFR (Non-Af Amer) 43 POC Glucose (mg/dL) 152 H Random Glucose 223 H Calcium 9.7 09/19/18 09/20/18 09/20/18 21:10 05:31 11:55 WBC 9.1 RBC 5.22 H Hgb 14.6 Hct 43.2 MCV 82.7 MCH 28.0 MCHC 33.9 RDW 13.9 Plt Count 161 Sodium Potassium Chloride Carbon Dioxide Anion Gap BUN Creatinine Est GFR ( Amer) Est GFR (Non-Af Amer) POC Glucose (mg/dL) 206 H 209 H Random Glucose Calcium 09/20/18 11:55 WBC RBC Hgb Hct MCV MCH MCHC RDW Plt Count Sodium 136 Potassium 3.6 Chloride 96 L Carbon Dioxide 26 Anion Gap 18 BUN 16 Creatinine 1.2 Est GFR ( Amer) 52 Est GFR (Non-Af Amer) 43 POC Glucose (mg/dL) Random Glucose 227 H Calcium 9.8 Assessment & Plan - Assessment and Plan (Free Text) Assessment: delirium hyperactive type rule out normal pressure hydrocephalus as pt is demonstrationg gait abnormality frequent falls Plan: recommend starting haldol 0.25 mg bid also haldol 0.25 mg q8 prn for agitation/ if pt refuses po give IM
[2018-09-20] MEDS: Artificial Tears Opht Soln OU PRN (14:14)
[2018-09-20] MEDS ORDERED: Haloperidol Lactate 2 mg/ml Liquid PO PRN (14:21)
[2018-09-20] MEDS ORDERED: Sodium Chloride 0.9% 50 ML IV ONE (16:45)
[2018-09-20] MEDS ORDERED: Iodixanol 320 MG/ML 100 ML BOTTLE IV ONE (16:45)
--- NOTE | 2018-09-20 19:24 | CP.PCM.PN ---
Subjective - Date & Time of Evaluation Date of Evaluation: 09/20/18 Time of Evaluation: 22:22 - Subjective Subjective: Above noted Several calls to Extensive discussion regarding CT scan ordered Objective - Vital Signs/Intake and Output Vital Signs (last 24 hours): Temp Pulse Resp BP Pulse Ox 97.1 F L 104 H 18 129/61 96 09/20/18 19:15 09/20/18 19:15 09/20/18 19:15 09/20/18 19:15 09/20/18 19:15 - Medications Medications: Current Medications Artificial Tears (Artificial Tears) 1 drop OU RQ4 PRN PRN Reason: Dry eyes Last Admin: 09/20/18 14:14 Dose: 1 drop Atorvastatin Calcium (Lipitor) 20 mg PO HS [facility] Last Admin: 09/19/18 22:15 Dose: 20 mg Enalapril Maleate (Vasotec) 20 mg PO DAILY [facility] Last Admin: 09/20/18 08:53 Dose: 20 mg Enoxaparin Sodium (Lovenox) 30 mg SC DAILY [facility]; Protocol Last Admin: 09/20/18 08:56 Dose: 30 mg Fluticasone Propionate (Flonase) 2 spr MARY DAILY [facility] Last Admin: 09/20/18 08:54 Dose: 2 spr Glipizide (Glucotrol Xl) 10 mg PO ACBD [facility] Last Admin: 09/20/18 08:52 Dose: 10 mg Haloperidol Lactate (Haldol) 0.25 mg PO Q8 PRN PRN Reason: Agitation Hydrochlorothiazide (Hydrodiuril) 25 mg PO DAILY [facility] Last Admin: 09/20/18 14:05 Dose: Not Given Ceftriaxone Sodium 1 gm/ (Sodium Chloride) 100 mls @ 100 mls/hr IVPB DAILY [facility]; Protocol Last Admin: 09/20/18 14:03 Dose: 100 mls/hr Insulin Human Regular (Humulin R) 0 units SC ACHS [facility]; Protocol Last Admin: 09/20/18 12:05 Dose: Not Given Latanoprost (Xalatan Opht) 1 drop OU HS [facility] Last Admin: 09/19/18 22:14 Dose: 1 drop Repaglinide (Prandin) 2 mg PO TIDWM [facility] - Labs Labs: 09/20/18 11:55 09/20/18 11:55 - Respiratory Exam Respiratory Exam: NORMAL BREATHING PATTERN - Cardiovascular Exam Cardiovascular Exam: REGULAR RHYTHM - GI/Abdominal Exam GI & Abdominal Exam: Normal Bowel Sounds Assessment and Plan - Assessment and Plan (Free Text) Assessment: Recurrent falls mechanical Admit to telemetry Neurology Cardiolgy Urinary retention UTI Hx Incontinence Urology Urine CS ABX MIDDM Diabetic Nepphropathy Nephrology Endo Dysthymia?? Psych COPD
--- NOTE | 2018-09-20 19:27 | PN ---
DATE: 09/20/2018 ENDOCRINOLOGY FOLLOWUP NOTE LOCATION: Room 411. SUBJECTIVE: This is an 88-year-old female with recent uncontrolled type 2 diabetes, presenting here with frequent falls and undergoing neurologic and cardiac workup at this time. Her glycemic levels are fluctuating as noted overnight and have ranged from 206 to 209 mg/dL. LABORATORY DATA: Her chemistry shows a BUN of 16, sodium 136, potassium 3.6, chloride 96, CO2 of 26, glucose 227, and creatinine 1.2. ASSESSMENT AND PLAN: So at this time, we will titrate once again the Prandin 2 mg three times a day with meals as originally ordered, but was changed by the pharmacist overnight as noted. We will continue the glipizide given as 10 mg two times a day before meals as ordered. We will hold off the Januvia medications because of the formidable expense of the medications as noted. We will also hold off metformin because of the advanced age and also underlying early impaired glomerular filtration rate as noted thereof. We will obtain serial chemistries and supplement accordingly as needed. We will follow. Kerri Bacon MD
[2018-09-20] MEDS: Latanoprost 0.005% Opht SOUTION OU SCH (22:39)
--- NOTE | 2018-09-21 03:01 | PN ---
DATE: 09/20/2018 FOLLOWUP RENAL CONSULTATION LOCATION: The patient is located in room 411, bed 1. REQUESTED BY: Nickolas Whittington MD REASON FOR FOLLOWUP: Electrolyte imbalance, urinary retention, UTI, hypertension. SUBJECTIVE: Mrs. Ko is an 88-year-old elderly very pleasant female with a history of hypertension, diabetes, osteoporosis, hyperlipidemia who was admitted with chief complaints of recurrent falls in the house recently, and she had two falls on the day of admission without injury. The patient's family decided to bring her to the hospital for further evaluation. The patient was also found to have urinary retention and also lower abdominal pain. The patient underwent straight catheterization x2 since admission for urinary retention. The patient is not in distress. The patient is feeling better this morning. No chest pain. No palpitation. No abdominal pain. No nausea, vomiting, or diarrhea. PHYSICAL EXAMINATION: VITAL SIGNS: Blood pressure this morning 106/66, pulse 103, respirations 20, temperature 98.9, saturation 96%. Height 5 feet, weight is 126 pounds. GENERAL: Mrs. Ko is an 88-year-old elderly female. Moderately built. Moderately nourished. Not in distress. HEENT: Pupils normal and reactive to light and accommodation. Conjunctivae pink. Sclerae anicteric. Tongue is moist. Trachea is midline. LUNGS: Symmetric on both sides. Bilateral breath sounds present. Clear to auscultation. CARDIOVASCULAR SYSTEM: Sanborn at the fifth intercostal space, midclavicular line. S1, S2 audible. No murmur or gallop. ABDOMEN: Normal in appearance. Soft, tympanitic. No guarding. No rigidity. No hepatosplenomegaly. CENTRAL NERVOUS SYSTEM: The patient is alert, awake, oriented x3. Nonfocal neuro examination. Cranial nerves II through XII grossly intact. Sensory and motor system is grossly within normal limits. EXTREMITIES: No cyanosis, no clubbing, no edema. LABORATORY DATA: Include as follows: As of 09/18/2018, urine culture positive for more than 100,000, gram-positive cocci. Her laboratory data include as follows, as of 09/20/2018, WBC 9.1, hemoglobin 14.6, hematocrit 43.2, platelets 161. Sodium 136, potassium 3.6, chloride 96, CO2 of 26, BUN 16, creatinine 1.2. GFR about 43 and glucose 227, calcium 9.8. Accu-Cheks yesterday 206, 209, and . ASSESSMENT AND PLAN: In summary, Mrs. Ko is an 88-year-old very pleasant elderly female with a history of hypertension, diabetes, osteoporosis who was admitted with recurrent falls, and the patient is status post falls x2 on the day of admission and abdominal discomfort and urinary retention. 1. Urinary tract infection secondary to gram-positive cocci, more than 100,000 colony-forming units. Discontinued Levaquin and started on Rocephin 1 g daily. 2. Hypertension. Blood pressure is stable. Continue enalapril 20 mg and hydrochlorothiazide 25 mg p.o. daily. 3. Diabetes. Sugars are still not controlled. Continue Prandin 2 mg p.o. t.i.d. and Humulin R for sliding scale and glipizide 10 mg p.o. daily, and continue deep venous thrombosis prophylaxis, Lovenox 30 mg subcu daily. Encouraged p.o. fluid intake. Case discussed with nurse practitioner in rounds. Hydrochlorothiazide is on hold. We will follow with you as needed. Thank you for allowing me to participate in your patient's care. Carmelo Shin MD
[2018-09-21] MEDS: Artificial Tears Opht Soln OU PRN (10:03)
[2018-09-21] MEDS: Enoxaparin 30 mg Syringe SC SCH (10:04)
[2018-09-21] MEDS: GlipiZIDE 10 mg SR Tab PO SCH ×2 (10:07→16:17)
[2018-09-21] MEDS: Insulin Regular 100 units/ml SC SCH ×4 (10:08→23:31)
--- NOTE | 2018-09-21 10:42 | CP.PCM.PN ---
Subjective - Date & Time of Evaluation Date of Evaluation: 09/21/18 Time of Evaluation: 10:41 - Subjective Subjective: Neuro Follow-Up Note: Mrs. Ko was evaluated this morning at bedside with present. Pt states that she feels "lousy" today but cannot tell me exactly what is bothering her. Pt denies pain, dizziness, visual changes, sob, n/v/d. She is confused today but able to follows commands. Pt's refused CTA Head and Neck yest erday as he does not want any testing with dyes. Objective - Vital Signs/Intake and Output Vital Signs (last 24 hours): Temp Pulse Resp BP Pulse Ox 98 F 93 H 20 120/72 95 09/21/18 08:26 09/21/18 08:26 09/21/18 08:26 09/21/18 08:26 09/21/18 08:26 - Medications Medications: Current Medications Artificial Tears (Artificial Tears) 1 drop OU RQ4 PRN PRN Reason: Dry eyes Last Admin: 09/21/18 10:03 Dose: 1 drop Atorvastatin Calcium (Lipitor) 20 mg PO HS [facility] Last Admin: 09/20/18 22:39 Dose: 20 mg Enalapril Maleate (Vasotec) 20 mg PO DAILY [facility] Last Admin: 09/21/18 10:04 Dose: 20 mg Enoxaparin Sodium (Lovenox) 30 mg SC DAILY [facility]; Protocol Last Admin: 09/21/18 10:04 Dose: 30 mg Fluticasone Propionate (Flonase) 2 spr MARY DAILY [facility] Last Admin: 09/21/18 10:03 Dose: 2 spr Glipizide (Glucotrol Xl) 10 mg PO ACBD [facility] Last Admin: 09/21/18 10:07 Dose: 10 mg Haloperidol Lactate (Haldol) 0.25 mg PO Q8 PRN PRN Reason: Agitation Last Admin: 09/20/18 22:40 Dose: 0.25 mg Hydrochlorothiazide (Hydrodiuril) 25 mg PO DAILY [facility] Last Admin: 09/20/18 14:05 Dose: Not Given Ceftriaxone Sodium 1 gm/ (Sodium Chloride) 100 mls @ 100 mls/hr IVPB DAILY [facility]; Protocol Last Admin: 09/21/18 10:15 Dose: 100 mls/hr Insulin Human Regular (Humulin R) 0 units SC ACHS [facility]; Protocol Last Admin: 09/21/18 10:08 Dose: Not Given Latanoprost (Xalatan Opht) 1 drop OU HS [facility] Last Admin: 09/20/18 22:39 Dose: 1 drop Repaglinide (Prandin) 2 mg PO TIDWM [facility] Last Admin: 09/21/18 10:08 Dose: 2 mg - Labs Labs: 09/20/18 11:55 09/20/18 11:55 - Constitutional Appears: No Acute Distress, Confused - Head Exam Head Exam: ATRAUMATIC, NORMAL INSPECTION, NORMOCEPHALIC - Eye Exam Eye Exam: EOMI, Normal appearance Pupil Exam: NORMAL ACCOMODATION - ENT Exam ENT Exam: Mucous Membranes Moist - Neck Exam Neck Exam: Full ROM, Normal Inspection - Respiratory Exam Respiratory Exam: NORMAL BREATHING PATTERN - Extremities Exam Extremities Exam: Full ROM. absent: Calf Tenderness, Pedal Edema Additional comments: generalized weakness; deconditioned - Back Exam Back Exam: Full ROM - Neurological Exam Neurological Exam: Altered, Awake, CN II-XII Intact. 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 No definite acute intracranial findings appreciable at this time. 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 These findings do not support a specific etiology. -CTA Head and Neck ordered, but could not be completed as pt's refused the test--he does not want any tests done with dye. -Carotid and Vertebral U/S ordered to evaluate for any vessel occlusions or stenosis--will f/u with results. -Continue current treatment of underlying issues. -Maintain fall precautions. -Continue PT and recommend rehab upon d/c. -Notify neuro team of any acute changes. Araceli Nguyen DNP, [facility] Case discussed with Dr. Matamoros Status: Acute
--- NOTE | 2018-09-21 12:15 | PCM.IRP ---
Objective - Vital Signs/Intake and Output Vital Signs (last 24 hours): Vital Signs - 24 hr 09/20/18 09/20/18 09/20/18 15:32 15:43 19:15 Temperature 97.9 F 97.1 F L Pulse Rate 105 H 107 H 104 H Respiratory 19 18 Rate Blood Pressure 113/65 129/61 O2 Sat by Pulse 92 L 95 96 Oximetry 09/21/18 09/21/18 09/21/18 00:15 05:19 08:26 Temperature 97.8 F 97.3 F L 98 F Pulse Rate 103 H 89 93 H Respiratory 18 18 20 Rate Blood Pressure 107/63 123/70 120/72 O2 Sat by Pulse 98 95 95 Oximetry - Medications Medications: Current Medications Artificial Tears (Artificial Tears) 1 drop OU RQ4 PRN PRN Reason: Dry eyes Last Admin: 09/21/18 10:03 Dose: 1 drop Atorvastatin Calcium (Lipitor) 20 mg PO HS [facility] Last Admin: 09/20/18 22:39 Dose: 20 mg Enalapril Maleate (Vasotec) 20 mg PO DAILY [facility] Last Admin: 09/21/18 10:04 Dose: 20 mg Enoxaparin Sodium (Lovenox) 30 mg SC DAILY [facility]; Protocol Last Admin: 09/21/18 10:04 Dose: 30 mg Fluticasone Propionate (Flonase) 2 spr MARY DAILY [facility] Last Admin: 09/21/18 10:03 Dose: 2 spr Glipizide (Glucotrol Xl) 10 mg PO ACBD [facility] Last Admin: 09/21/18 10:07 Dose: 10 mg Haloperidol Lactate (Haldol) 0.25 mg PO Q8 PRN PRN Reason: Agitation Last Admin: 09/20/18 22:40 Dose: 0.25 mg Hydrochlorothiazide (Hydrodiuril) 25 mg PO DAILY [facility] Last Admin: 09/20/18 14:05 Dose: Not Given Ceftriaxone Sodium 1 gm/ (Sodium Chloride) 100 mls @ 100 mls/hr IVPB DAILY [facility]; Protocol Last Admin: 09/21/18 10:15 Dose: 100 mls/hr Insulin Human Regular (Humulin R) 0 units SC ACHS [facility]; Protocol Last Admin: 09/21/18 10:08 Dose: Not Given Latanoprost (Xalatan Opht) 1 drop OU HS [facility] Last Admin: 09/20/18 22:39 Dose: 1 drop Repaglinide (Prandin) 2 mg PO TIDWM [facility] Last Admin: 09/21/18 10:08 Dose: 2 mg - Labs Labs (last 24 hours): Laboratory Results - last 24 hr 09/20/18 09/20/18 09/20/18 11:04 11:55 16:10 Sodium 136 Potassium 3.6 Chloride 96 L Carbon Dioxide 26 Anion Gap 18 BUN 16 Creatinine 1.2 Est GFR ( Amer) 52 Est GFR (Non-Af Amer) 43 POC Glucose (mg/dL) 206 H 170 H Random Glucose 227 H Calcium 9.8 09/20/18 09/21/18 09/21/18 21:13 05:32 11:16 Sodium Potassium Chloride Carbon Dioxide Anion Gap BUN Creatinine Est GFR ( Amer) Est GFR (Non-Af Amer) POC Glucose (mg/dL) 254 H 192 H 266 H Random Glucose Calcium Assessment/Plan - Assessment and Plan (Free Text) Assessment: Telemetry reviewed no arrythmias noted Hemodynamically stable ECHO: Normal LVEF, Mod AI, not contributing to syncope OK to transfer off telemetry OK for PT from cardiology standpoint, gait imbalance
--- NOTE | 2018-09-21 16:37 | US ---
Date of service: 09/21/2018 PROCEDURE: Duplex ultrasound of the carotid and vertebral arteries. HISTORY: r/o occlussion or stenosis; unable to do CTA COMPARISON: None available. TECHNIQUE: Grayscale and duplex Doppler evaluation of the cervical carotid and vertebral arteries were performed. The common carotid, carotid bifurcations and cervical ICA and proximal ECA were evaluated. The vertebral arteries were evaluated for gross patency and direction. FINDINGS: There is mild diffuse intimal thickening. RIGHT CAROTID ARTERIES: Common Carotid Artery: Normal. Maximal flow velocity of 85.3 cm/s. Carotid Bifurcation: Normal. Internal Carotid Artery:Normal. Maximal flow velocity of 48.8 cm/s. External Carotid Artery (proximal branches): Normal. Maximal flow velocity of 68.5 cm/s. ICA/CCA Ratio: 0.4 LEFT CAROTID ARTERIES: Common Carotid Artery: Normal. Maximal flow velocity of 91.8 cm/s. Carotid Bifurcation: Normal. Internal Carotid Artery:Normal. Maximal flow velocity of 55.8 cm/s. External Carotid Artery (proximal branches): Normal. Maximal flow velocity of 77.9 cm/s. ICA/CCA Ratio: 0.6 VERTEBRAL ARTERIES: Right Vertebral Artery: Patent. Antegrade flow. Left Vertebral Artery: Patent. Antegrade flow. OTHER FINDINGS: No atherosclerotic calcification present IMPRESSION: No evidence of hemodynamically significant stenosis by peak systolic velocity criteria. Patent vertebral arteries with antegrade flow.
--- NOTE | 2018-09-21 18:11 | PN ---
DATE: 09/21/2018 ENDOCRINOLOGY FOLLOWUP NOTE LOCATION: Room 411. SUBJECTIVE: This is an 88-year-old female with known history of uncontrolled type 2 diabetes, presenting here with a syncopal episode and frequent falls at home as noted and currently undergoing neurologic and cardiac workup and is also being followed closely for metabolic management. Her glycemic levels are fluctuating with the variability of her oral intake as noted. Her glucose levels overnight have ranged from 192-266 mg/dL. It was 254 at bedtime last night. LABORATORY DATA: Her chemistry showed a BUN of 16, sodium 136, potassium 3.6, chloride 96, CO2 of 26, glucose 227 and creatinine 1.2. So at this time, we will continue the modified oral hypoglycemic drug therapy given in combination with Prandin given as 2 mg t.i.d. with meals as ordered. We will also continue the glipizide given as 10 mg b.i.d. before meals as ordered. We will continue also the low-dose correction scale using regular insulin to obviate hypoglycemia and detailed orders have been given. We will follow and advise accordingly. Kerri Bacon MD
--- NOTE | 2018-09-21 21:16 | CP.PCM.PN ---
Subjective - Date & Time of Evaluation Date of Evaluation: 09/21/18 Time of Evaluation: 22:22 - Subjective Subjective: Above noted Extensive discussion with and staff regarding disposition Objective - Vital Signs/Intake and Output Vital Signs (last 24 hours): Temp Pulse Resp BP Pulse Ox 98.0 F 84 17 116/69 91 L 09/21/18 19:50 09/21/18 19:50 09/21/18 19:50 09/21/18 19:50 09/21/18 19:50 - Medications Medications: Current Medications Artificial Tears (Artificial Tears) 1 drop OU RQ4 PRN PRN Reason: Dry eyes Last Admin: 09/21/18 10:03 Dose: 1 drop Atorvastatin Calcium (Lipitor) 20 mg PO HS [facility] Last Admin: 09/20/18 22:39 Dose: 20 mg Enalapril Maleate (Vasotec) 20 mg PO DAILY [facility] Last Admin: 09/21/18 10:04 Dose: 20 mg Enoxaparin Sodium (Lovenox) 30 mg SC DAILY [facility]; Protocol Last Admin: 09/21/18 10:04 Dose: 30 mg Fluticasone Propionate (Flonase) 2 spr MARY DAILY [facility] Last Admin: 09/21/18 10:03 Dose: 2 spr Glipizide (Glucotrol Xl) 10 mg PO ACBD [facility] Last Admin: 09/21/18 16:17 Dose: 10 mg Haloperidol Lactate (Haldol) 0.25 mg PO Q8 PRN PRN Reason: Agitation Last Admin: 09/20/18 22:40 Dose: 0.25 mg Hydrochlorothiazide (Hydrodiuril) 25 mg PO DAILY [facility] Last Admin: 09/20/18 14:05 Dose: Not Given Ceftriaxone Sodium 1 gm/ (Sodium Chloride) 100 mls @ 100 mls/hr IVPB DAILY [facility]; Protocol Last Admin: 09/21/18 10:15 Dose: 100 mls/hr Insulin Human Regular (Humulin R) 0 units SC ACHS [facility]; Protocol Last Admin: 09/21/18 16:15 Dose: Not Given Latanoprost (Xalatan Opht) 1 drop OU HS [facility] Last Admin: 09/20/18 22:39 Dose: 1 drop Repaglinide (Prandin) 2 mg PO TIDWM [facility] Last Admin: 09/21/18 17:51 Dose: 2 mg - Labs Labs: 09/20/18 11:55 09/20/18 11:55 - Respiratory Exam Respiratory Exam: NORMAL BREATHING PATTERN - Cardiovascular Exam Cardiovascular Exam: REGULAR RHYTHM - GI/Abdominal Exam GI & Abdominal Exam: Normal Bowel Sounds Assessment and Plan - Assessment and Plan (Free Text) Assessment: Recurrent falls mechanical Unsteady gait/ imbalance W/U in process Neurology Cardiolgy Urinary retention UTI Hx Incontinence Urology Urine CS ABX MIDDM Diabetic Nepphropathy Nephrology Endo Dysthymia?? Psych COPD
[2018-09-21] MEDS: Latanoprost 0.005% Opht SOUTION OU SCH (23:32)
[2018-09-22] MEDS: Bethanechol 50 MG TAB PO SCH ×3 (01:29→17:16)
[2018-09-22 06:27] LABS: BASO # 0.1 K/uL (0.0-0.2); BASO % 1.2 % (0.0-2.0); EOS # 0.2 K/uL (0.0-0.7); HEMOGLOBIN 14.9 g/dL (12.0-16.0); LYMPH # 1.7 K/uL (1.0-4.3); LYMPH % 20.9 % (20.0-40.0); MEAN CELL VOLUME 84.1 fl (81.0-99.0); MEAN CORPUSCULAR HEMOGLOBIN 28.4 pg (27.0-31.0); MEAN CORPUSCULAR HGB CONC 33.7 g/dL (33.0-37.0); MEAN PLATELET VOLUME 9.7 fl (7.2-11.7); MONO # 0.9 K/uL (0.0-0.8); MONO % 10.9 % (0.0-10.0); NEUT # 5.3 K/uL (1.8-7.0); NRBC % 0.1 % (0.0-0.0); RBC 5.24 Mil/uL (3.80-5.20); RED CELL DISTRIBUTION WIDTH 14.2 % (11.5-14.5); WHITE BLOOD COUNT 8.1 K/uL (4.8-10.8)
[2018-09-22 06:43] LABS: ALB/GLOB RATIO 1.3 (1.0-2.1)
[2018-09-22] MEDS: Enoxaparin 30 mg Syringe SC SCH (09:31)
[2018-09-22] MEDS: GlipiZIDE 10 mg SR Tab PO SCH ×2 (09:33→16:52)
[2018-09-22] MEDS: Insulin Regular 100 units/ml SC SCH ×4 (09:33→23:33)
--- NOTE | 2018-09-22 11:08 | CP.PCM.PN ---
Subjective - Date & Time of Evaluation Date of Evaluation: 09/22/18 Time of Evaluation: 11:06 - Subjective Subjective: Neuro Follow-Up Note: Mrs. Ko was evaluated this morning at bedside. present. Pt offers no complaints today. She is still confused today but able to follows commands. Per , she is for [facility] at [facility]. He is requesting that she is d/c to [facility] today. Denies pain, dizziness, visual changes, sob, n/v/d. Objective - Vital Signs/Intake and Output Vital Signs (last 24 hours): Temp Pulse Resp BP Pulse Ox 98.3 F 82 18 100/56 L 96 09/22/18 05:45 09/22/18 05:45 09/22/18 05:45 09/22/18 05:45 09/22/18 05:45 - Medications Medications: Current Medications Artificial Tears (Artificial Tears) 1 drop OU RQ4 PRN PRN Reason: Dry eyes Last Admin: 09/21/18 10:03 Dose: 1 drop Atorvastatin Calcium (Lipitor) 20 mg PO HS [facility] Last Admin: 09/21/18 23:32 Dose: 20 mg Bethanechol Chloride (Urecholine) 50 mg PO Q8H [facility] Last Admin: 09/22/18 09:30 Dose: 50 mg Enalapril Maleate (Vasotec) 20 mg PO DAILY [facility] Last Admin: 09/22/18 09:33 Dose: 20 mg Enoxaparin Sodium (Lovenox) 30 mg SC DAILY [facility]; Protocol Last Admin: 09/22/18 09:31 Dose: 30 mg Fluticasone Propionate (Flonase) 2 spr MARY DAILY [facility] Last Admin: 09/22/18 09:33 Dose: 2 spr Glipizide (Glucotrol Xl) 10 mg PO ACBD [facility] Last Admin: 09/22/18 09:33 Dose: 10 mg Haloperidol Lactate (Haldol) 0.25 mg PO Q8 PRN PRN Reason: Agitation Last Admin: 09/20/18 22:40 Dose: 0.25 mg Hydrochlorothiazide (Hydrodiuril) 25 mg PO DAILY [facility] Last Admin: 09/20/18 14:05 Dose: Not Given Ceftriaxone Sodium 1 gm/ (Sodium Chloride) 100 mls @ 100 mls/hr IVPB DAILY [facility]; Protocol Last Admin: 09/22/18 09:30 Dose: 100 mls/hr Insulin Human Regular (Humulin R) 0 units SC ACHS [facility]; Protocol Last Admin: 09/22/18 09:33 Dose: Not Given Latanoprost (Xalatan Opht) 1 drop OU HS [facility] Last Admin: 09/21/18 23:32 Dose: 1 drop Repaglinide (Prandin) 2 mg PO TIDWM [facility] Last Admin: 09/22/18 09:31 Dose: 2 mg - Labs Labs: 09/22/18 06:00 09/22/18 06:00 - Constitutional Appears: No Acute Distress, Confused - Head Exam Head Exam: ATRAUMATIC, NORMAL INSPECTION, NORMOCEPHALIC - Eye Exam Eye Exam: Normal appearance Pupil Exam: NORMAL ACCOMODATION - ENT Exam ENT Exam: Mucous Membranes Moist - Neck Exam Neck Exam: Full ROM, Normal Inspection - Respiratory Exam Respiratory Exam: NORMAL BREATHING PATTERN - Extremities Exam Extremities Exam: Full ROM. absent: Calf Tenderness, Pedal Edema Additional comments: generalized weakness 2/2 deconditioning - Neurological Exam Neurological Exam: Abnormal Gait, Alert, Altered, Awake, CN II-XII Intact. absent: Oriented x3 Neuro motor strength exam: Left Upper Extremity: 4, Right Upper Extremity: 4, Left Lower Extremity: 3, Right Lower Extremity: 3 Additional comments: Speech clear Confused Awake, alert; disoriented to place and time Moves all extremities; generalized weakness; deconditioned Reflexes brisk b/l Gait not assessed; pt observed sitting in chair OOB - Psychiatric Exam Additional comments: confused - Skin Skin Exam: Normal Color Assessment and Plan (1) Frequent falls Assessment & Plan: Imaging reviewed: -Carotid and Vertebral Artery U/S (09/21/18): No evidence of hemodynamically significant stenosis by peak systolic velocity criteria. Patent vertebral arteries with antegrade flow. 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 No definite acute intracranial findings appreciable at this time. 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 These findings do not support a specific etiology. -Continue current treatment of underlying issues. -Maintain fall precautions. -Continue PT and recommend rehab upon d/c for conditioning. -Notify neuro team of any acute changes. No further neuro recommendations. Reconsult prn. Thank you for allowing us to participate in this pt's care. Araceli Nguyen DNP, [employer]PER[employer] Case discussed with Dr. Matamoros Status: Acute
[2018-09-22] MEDS: Artificial Tears Opht Soln OU PRN (12:55)
--- NOTE | 2018-09-22 13:41 | PN ---
DATE: 09/22/2018 ENDOCRINOLOGY FOLLOWUP NOTE LOCATION: Room 411. SUBJECTIVE: This is an 88-year-old female with recent uncontrolled type 2 insulin-requiring diabetes now being followed closely for metabolic management. Her glycemic levels are fluctuating but improved, however, she tends to have higher hyperglycemic accelerations preprandial as noted. Her glucose levels today have ranged from 220-353 mg/dL. LABORATORY DATA: Her chemistry showed a BUN of 28, sodium 140, potassium 3.7, chloride 101, CO2 of 25, glucose 225 and creatinine 1.5. ASSESSMENT AND PLAN: So at this time, we will continue the dual oral hypoglycemic therapy given as Prandin 2 mg t.i.d. with meals with glipizide given as 10 mg b.i.d. before meals as ordered. An excellent complementary medication would be Januvia given as 100 mg once daily, but the expense is formidable and would be a financial drain to the patient if not covered by her insurance. We will obtain serial chemistries and supplement accordingly as needed. We will follow. Kerri Bacon MD
[2018-09-22] MEDS: Sodium Chloride 0.45% 1,000 ML IV SCH (16:54)
--- NOTE | 2018-09-22 18:16 | CP.PCM.PN ---
Subjective - Date & Time of Evaluation Date of Evaluation: 09/22/18 Time of Evaluation: 22:22 - Subjective Subjective: Creat 1.5 Urinary retention again last night?? Long discussion with Spouse regarding disposition Objective - Vital Signs/Intake and Output Vital Signs (last 24 hours): Temp Pulse Resp BP Pulse Ox 97.2 F L 82 18 126/72 95 09/22/18 16:10 09/22/18 16:10 09/22/18 16:10 09/22/18 16:10 09/22/18 16:10 Intake and Output: 09/22/18 09/22/18 06:59 18:59 Intake Total 1380 Output Total 1000 Balance 380 - Medications Medications: Current Medications Artificial Tears (Artificial Tears) 1 drop OU RQ4 PRN PRN Reason: Dry eyes Last Admin: 09/22/18 12:55 Dose: 1 drop Atorvastatin Calcium (Lipitor) 20 mg PO HS [facility] Last Admin: 09/21/18 23:32 Dose: 20 mg Bethanechol Chloride (Urecholine) 50 mg PO Q8H [facility] Last Admin: 09/22/18 17:16 Dose: 50 mg Enalapril Maleate (Vasotec) 20 mg PO DAILY [facility] Last Admin: 09/22/18 09:33 Dose: 20 mg Enoxaparin Sodium (Lovenox) 30 mg SC DAILY [facility]; Protocol Last Admin: 09/22/18 09:31 Dose: 30 mg Fluticasone Propionate (Flonase) 2 spr MARY DAILY [facility] Last Admin: 09/22/18 09:33 Dose: 2 spr Glipizide (Glucotrol Xl) 10 mg PO ACBD [facility] Last Admin: 09/22/18 16:52 Dose: 10 mg Haloperidol Lactate (Haldol) 0.25 mg PO Q8 PRN PRN Reason: Agitation Last Admin: 09/20/18 22:40 Dose: 0.25 mg Hydrochlorothiazide (Hydrodiuril) 25 mg PO DAILY [facility] Last Admin: 09/20/18 14:05 Dose: Not Given Ceftriaxone Sodium 1 gm/ (Sodium Chloride) 100 mls @ 100 mls/hr IVPB DAILY [facility]; Protocol Last Admin: 09/22/18 09:30 Dose: 100 mls/hr Sodium Chloride (Sodium Chloride 0.45%) 1,000 mls @ 80 mls/hr IV .[id number] Stop: 09/23/18 11:27 Last Admin: 09/22/18 16:54 Dose: 80 mls/hr Insulin Human Regular (Humulin R) 0 units SC ACHS [facility]; Protocol Last Admin: 09/22/18 16:51 Dose: Not Given Latanoprost (Xalatan Opht) 1 drop OU HS [facility] Last Admin: 09/21/18 23:32 Dose: 1 drop Repaglinide (Prandin) 2 mg PO TIDWM [facility] Last Admin: 09/22/18 16:52 Dose: 2 mg - Labs Labs: 09/22/18 06:00 09/22/18 06:00 - Respiratory Exam Respiratory Exam: NORMAL BREATHING PATTERN - Cardiovascular Exam Cardiovascular Exam: REGULAR RHYTHM - GI/Abdominal Exam GI & Abdominal Exam: Normal Bowel Sounds Assessment and Plan - Assessment and Plan (Free Text) Assessment: Recurrent falls mechanical Unsteady gait/ imbalance As per Neurology Cardiolgy GIOVANNI CKD improving Diabetic Nepphropathy IVF Nephrology Urinary retention UTI Hx Incontinence Urology Urine CS ABX MIDDM Nephrology Endo Dysthymia?? Psych COPD
[2018-09-22] MEDS: Latanoprost 0.005% Opht SOUTION OU SCH (21:13)
[2018-09-23] MEDS: Bethanechol 50 MG TAB PO SCH ×3 (01:50→16:21)
[2018-09-23] MEDS: Sodium Chloride 0.45% 1,000 ML IV SCH (01:51)
[2018-09-23] MEDS: Artificial Tears Opht Soln OU PRN (09:01)
[2018-09-23] MEDS: GlipiZIDE 10 mg SR Tab PO SCH ×2 (09:03→18:13)
[2018-09-23] MEDS: Enoxaparin 30 mg Syringe SC SCH (09:03)
[2018-09-23] MEDS: Insulin Regular 100 units/ml SC SCH ×4 (09:04→22:32)
--- NOTE | 2018-09-23 11:42 | PN ---
DATE: 09/23/2018 LOCATION: Room 411. SUBJECTIVE: This is an 88-year-old female with recent uncontrolled type 2 diabetes presenting here with syncope and frequent falls and currently undergoing neurologic and cardiac workup as noted thereof and is being followed closely also for metabolic management because of recent hyperglycemic accelerations as noted. Her glycemic levels overnight are fluctuating but improved and her glucose levels have ranged from 170 to 236 and 262 mg/dL. Her chemistry showed a BUN of 23, sodium 138, potassium 3.4, chloride 100, CO2 of 25, glucose 146 and creatinine 1.4. So, at this time, we will continue the dual oral hypoglycemic drug therapy given in combination with glipizide at 10 mg b.i.d. before meals as ordered with Prandin given as 2 mg t.i.d. with meals as ordered. We will continue the IV hydration as given and obtain serial chemistries and supplement accordingly as needed. We will hold off the initiation of metformin therapy with the underlying nephropathy and also the advanced age of the patient. We will follow and advise accordingly. Kerri Bacon MD
[2018-09-23] MEDS ORDERED: Sodium Chloride 0.45% 1,000 ML IV SCH ×2 (14:30→18:15)
[2018-09-23 14:56] LABS: HEMOGLOBIN 13.3 g/dL (12.0-16.0); MEAN CELL VOLUME 84.3 fl (81.0-99.0); MEAN CORPUSCULAR HEMOGLOBIN 28.2 pg (27.0-31.0); MEAN CORPUSCULAR HGB CONC 33.4 g/dL (33.0-37.0); RBC 4.72 Mil/uL (3.80-5.20); RED CELL DISTRIBUTION WIDTH 13.8 % (11.5-14.5); WHITE BLOOD COUNT 8.9 K/uL (4.8-10.8)
[2018-09-23 15:05] LABS: ALB/GLOB RATIO 1.3 (1.0-2.1); ALBUMIN 3.5 g/dL (3.5-5.0); CALCIUM 8.9 mg/dL (8.4-10.2)
[2018-09-23] MEDS: Latanoprost 0.005% Opht SOUTION OU SCH (22:34)
[2018-09-24] MEDS: Bethanechol 50 MG TAB PO SCH ×3 (00:57→17:02)
[2018-09-24] MEDS: Insulin Regular 100 units/ml SC SCH ×4 (07:55→22:12)
[2018-09-24] MEDS: Enoxaparin 30 mg Syringe SC SCH (09:36)
[2018-09-24] MEDS: GlipiZIDE 10 mg SR Tab PO SCH ×2 (09:36→17:01)
--- NOTE | 2018-09-24 12:44 | CP.PCM.CON ---
History of Present Illness - History of Present Illness History of Present Illness: 88-year-old woman with a past medical history of HTN, HLD, who has been having worsening gait over the past several months and has had frequent falls. There had never been loss of consciousness according to the . He reported at least 4 different falls Neuro and cardio eval in progress referred for ID eval for + urine c/s- Lactobacillus species Review of Systems - Review of Systems All systems: reviewed and no additional remarkable complaints except - Constitutional Constitutional: As Per HPI - EENT Eyes: absent: As Per HPI, Blind Spots, Blurred Vision, Change in Vision, D ecreased Night Vision, Diplopia, Discharge, Dry Eye, Exophthalmos, Floaters, Irritation, Itchy Eyes, Loss of Peripheral Vision, Pain, Photophobia, Requires Corrective Lenses, Sees Flashes, Spots in Vision, Tunnel Vision, Other Visual Disturbances, Loss of Vision, Other Ears: absent: As Per HPI, Decreased Hearing, Ear Discharge, Ear Pain, Tinnitus, Abnormal Hearing, Disequilibrium, Dizziness, Other Nose/Mouth/Throat: absent: As Per HPI, Epistaxis, Nasal Congestion, Nasal Discharge, Nasal Obstruction, Nasal Trauma, Nose Pain, Post Nasal Drip, Sinus Pain, Sinus Pressure, Bleeding Gums, Change in Voice, Dental Pain, Dry Mouth, Dysphagia, Halitosis, Hoarsness, Lip Swelling, Mouth Lesions, Mouth Pain, Odynophagia, Sore Throat, Throat Swelling, Tongue Swelling, Facial Pain, Neck Pain, Neck Mass, Other - Breasts Breasts: absent: As Per HPI, Change in Shape, Mass, Pain, Nipple Discharge, Nipple Inversion, Skin Changes, Swelling, Other - Cardiovascular Cardiovascular: absent: As Per HPI, Acrocyanosis, Chest Pain, Chest Pain at Rest, Chest Pain with Activity, Claudication, Diaphoresis, Dyspnea, Dyspnea on Exertion, Edema, Irregular Heart Rhythm, Pain Radiating to Arm/Neck/Jaw, Leg Edema, Leg Ulcers, Lightheadedness, Orthopnea, Palpitations, Paroxysmal Nocturnal Dyspnea, Pedal Edema, Radiating Pain, Rapid Heart Rate, Slow Heart Rate, Syncope, Other - Respiratory Respiratory: absent: As Per HPI, Cough, Dyspnea, Hemoptysis, Dyspnea on Exertion, Wheezing, Snoring, Stridor, Pain on Inspiration, Chest Congestion, Excessive Mucous Production, Change in Mucous Color, Pain with Coughing, Other - Gastrointestinal Gastrointestinal: absent: As Per HPI, Abdominal Pain, Belching, Bloating, Change in Bowel Habits, Change in Stool Character, Coffee Ground Emesis, Constipation, Cramping, Diarrhea, Dyspepsia, Dysphagia, Early Satiety, Excessive Flatus, Fecal Incontinence, Heartburn, Hematemesis, Hematochezia, Loose Stools, Melena, Nausea, Odynophagia, Temesmus, Vomiting, Other - Genitourinary Genitourinary: As Per HPI - Reproductive: Female Reproductive:Female: absent: As Per HPI, Amenorrhea, Amenorrhea/ Control, Currently Menstual, Cycle <21 Days, Cycle >35 Days, Cycle Variable, Menses 1-7 Days, Menses >/= 8 Days, Menses Variable, Cycle > 4 Weeks Between, No Menses for 6 Months, Heavy Menses, Light Menses, Normal Menses, Spotting Between Cycles, S/P Hysterectomy, Menopausal, Post Menopausal, Premenarche, Abnormal Vaginal Bleeding, Dysmenorrhea, Dyspareunia, Genital Lesions, Genital Pruritis, Pelvic Pain, Prolapse Symptoms, Sexual Dysfunction, Vaginal Discharge, Vaginal Dryness, Vaginal Odor, Vaginal Pruritis, Other - Menstruation Menstruation: absent: As Per HPI, Amenorrhea, Amenorrhea/ Control, Currently Menstual, Cycle <21 Days, Cycle >35 Days, Cycle Variable, Menses 1-7 Days, Menses >/= 8 Days, Menses Variable, Cycle > 4 Weeks Between, No Menses for 6 Months, Heavy Menses, Light Menses, Normal Menses, Spotting Between Cycles, S/P Hysterectomy, Menopausal, Post Menopausal, Premenarche, Abnormal Vaginal Bleeding, Dysmenorrhea, Other - Musculoskeletal Musculoskeletal: As Per HPI - Integumentary Integumentary: As Per HPI. absent: Acne, Alopecia, Bleeding Lesions, Change in Hair, Change in Nails, Change in Pigmentation, Changing Lesions, Dry Skin, Erythema, Furuncle, Hirsutism, Lesions, New Lesions, Non-Healing Lesions, Photosensitivity, Pruritus, Rash, Skin Pain, Skin Ulcer, Sores, Striae, Swelling, Unusual Bruising, Wounds, Jaundice, Other - Neurological Neurological: As Per HPI - Psychiatric Psychiatric: absent: As Per HPI, Abnormal Sleep Pattern, Anhedonia, Anxiety, Aud itory Hallucinations, Behavioral Changes, Change in Appetite, Change in Libido, Confusion, Depression, Difficulty Concentrating, Hallucinations, Homicidal Ideation, Hopelessness, Irritability, Memory Loss, Mood Swings, Panic Attacks, Paranoia, Suicidal Ideation, Visual Hallucinations, Tactile Hallucinations, Other - Endocrine Endocrine: absent: As Per HPI, Change in Body Appearance, Change in Libido, Cold Intolorance, Deepening of Voice, Excessive Sweating, Fatigue, Flushing, Heat Intolorance, Increase in Ring/Shoe/Hat Size, Palpitations, Polydipsia, Poly phagia, Polyuria, Other - Hematologic/Lymphatic Hematologic: absent: As Per HPI, Easy Bleeding, Easy Bruising, Lymphadenopathy, Other Past Patient History - Past Medical History & Family History Past Medical History?: Yes - Past Social History Smoking Status: Current Some Days Smoker - CARDIAC Hx Cardiac Disorders: Yes (htn,hld) - PULMONARY Hx Respiratory Disorders: No - NEUROLOGICAL Hx Neurological Disorder: No - HEENT Hx HEENT Problems: Yes (glaucoma) - RENAL Hx Chronic Kidney Disease: No - ENDOCRINE/METABOLIC Hx Endocrine Disorders: Yes (dm2) - HEMATOLOGICAL/ONCOLOGICAL Hx Blood Disorders: No Hx AIDS: No Hx Human Immunodeficiency Virus (HIV): No - INTEGUMENTARY Hx Dermatological Problems: No - MUSCULOSKELETAL/RHEUMATOLOGICAL Hx Musculoskeletal Disorders: No Hx Falls: Yes - GASTROINTESTINAL Hx Gastrointestinal Disorders: No - GENITOURINARY/GYNECOLOGICAL Hx Genitourinary Disorders: No - PSYCHIATRIC Hx Psychophysiologic Disorder: No Hx Substance Use: No - SURGICAL HISTORY Hx Hysterectomy: Yes - ANESTHESIA Hx Anesthesia: Yes Hx Anesthesia Reactions: No Hx Malignant Hyperthermia: No Meds Allergies/Adverse Reactions: Allergies Allergy/AdvReac Type Severity Reaction Status Date / Time No Known Allergies Allergy Verified 09/18/18 08:13 - Medications Medications: Current Medications Artificial Tears (Artificial Tears) 1 drop OU RQ4 PRN PRN Reason: Dry eyes Last Admin: 09/23/18 09:01 Dose: 1 drop Atorvastatin Calcium (Lipitor) 20 mg PO HS [facility] Last Admin: 09/23/18 22:34 Dose: 20 mg Bethanechol Chloride (Urecholine) 50 mg PO Q8H [facility] Last Admin: 09/24/18 09:38 Dose: 50 mg Enalapril Maleate (Vasotec) 20 mg PO DAILY [facility] Last Admin: 09/24/18 09:38 Dose: 20 mg Fluticasone Propionate (Flonase) 2 spr MARY DAILY [facility] Last Admin: 09/24/18 09:35 Dose: 2 spr Glipizide (Glucotrol Xl) 10 mg PO ACBD [facility] Last Admin: 09/24/18 09:36 Dose: 10 mg Haloperidol Lactate (Haldol) 0.25 mg PO Q8 PRN PRN Reason: Agitation Last Admin: 09/20/18 22:40 Dose: 0.25 mg Hydrochlorothiazide (Hydrodiuril) 25 mg PO DAILY [facility] Last Admin: 09/20/18 14:05 Dose: Not Given Ceftriaxone Sodium 1 gm/ (Sodium Chloride) 100 mls @ 200 mls/hr IVPB DAILY [facility]; Protocol Last Admin: 09/24/18 09:37 Dose: 200 mls/hr Sodium Chloride (Sodium Chloride 0.45%) 1,000 mls @ 40 mls/hr IV .Q24H [facility] Stop: 09/24/18 14:20 Last Admin: 09/23/18 20:32 Dose: Not Given Insulin Human Regular (Humulin R) 0 units SC ACHS [facility]; Protocol Last Admin: 09/24/18 07:55 Dose: Not Given Latanoprost (Xalatan Opht) 1 drop OU HS [facility] Last Admin: 09/23/18 22:34 Dose: 1 drop Repaglinide (Prandin) 2 mg PO TIDWM [facility] Last Admin: 09/24/18 09:37 Dose: 2 mg Physical Exam - Constitutional Appears: Non-toxic, Chronically Ill - Head Exam Head Exam: ATRAUMATIC, NORMAL INSPECTION, NORMOCEPHALIC - Eye Exam Eye Exam: EOMI, PERRL. absent: Scleral icterus - ENT Exam ENT Exam: Mucous Membranes Dry, Normal External Ear Exam - Neck Exam Neck exam: Negative for: Lymphadenopathy - Respiratory Exam Respiratory Exam: Decreased Breath Sounds, Rhonchi - Cardiovascular Exam Cardiovascular Exam: REGULAR RHYTHM, +S1, +S2 - GI/Abdominal Exam GI & Abdominal Exam: Diminished Bowel Sounds, Soft. absent: Tenderness - Rectal Exam Rectal Exam: Deferred - Exam Exam: NORMAL INSPECTION - Extremities Exam Extremities exam: Positive for: pedal pulses present. Negative for: calf tenderness, pedal edema, tenderness - Back Exam Back exam: absent: CVA tenderness (L), CVA tenderness (R) - Neurological Exam Neurological exam: Alert, CN II-XII Intact, Oriented x3, Reflexes Normal - Psychiatric Exam Psychiatric exam: Depressed - Skin Skin Exam: Dry, Intact Results - Vital Signs Recent Vital Signs: Last Vital Signs Temp 97.7 F 09/24/18 07:57 Pulse 74 09/24/18 07:57 Resp 19 09/24/18 07:57 BP 154/71 H 09/24/18 07:57 Pulse Ox 99 09/24/18 07:57 - Labs Result Diagrams: 09/23/18 14:42 09/23/18 14:42 Labs: Laboratory Results - last 24 hr 09/23/18 09/23/18 09/23/18 10:36 14:42 14:42 WBC 8.9 RBC 4.72 Hgb 13.3 Hct 39.8 MCV 84.3 MCH 28.2 MCHC 33.4 RDW 13.8 Plt Count 129 L D Sodium 140 Potassium 3.4 L Chloride 100 Carbon Dioxide 26 Anion Gap 17 BUN 21 H Creatinine 1.2 Est GFR ( Amer) 52 Est GFR (Non-Af Amer) 43 POC Glucose (mg/dL) 210 H Random Glucose 189 H Calcium 8.9 Total Bilirubin 0.4 AST 20 ALT 26 Alkaline Phosphatase 57 Total Protein 6.2 L Albumin 3.5 Globulin 2.7 Albumin/Globulin Ratio 1.3 09/23/18 09/23/18 09/24/18 16:23 21:41 05:54 WBC RBC Hgb Hct MCV MCH MCHC RDW Plt Count Sodium Potassium Chloride Carbon Dioxide Anion Gap BUN Creatinine Est GFR ( Amer) Est GFR (Non-Af Amer) POC Glucose (mg/dL) 227 H 261 H 133 H Random Glucose Calcium Total Bilirubin AST ALT Alkaline Phosphatase Total Protein Albumin Globulin Albumin/Globulin Ratio 09/24/18 10:51 WBC RBC Hgb Hct MCV MCH MCHC RDW Plt Count Sodium Potassium Chloride Carbon Dioxide Anion Gap BUN Creatinine Est GFR ( Amer) Est GFR (Non-Af Amer) POC Glucose (mg/dL) 237 H Random Glucose Calcium Total Bilirubin AST ALT Alkaline Phosphatase Total Protein Albumin Globulin Albumin/Globulin Ratio Assessment & Plan (1) Frequent falls Status: Acute (2) Syncope Status: Acute (3) UTI (lower urinary tract infection) Status: Acute - Assessment and Plan (Free Text) Assessment: Lactobacillus may be normal bell for uro-genital tract unlikely pathogen will repeat and cont IV Rocephin for now
[2018-09-24] MEDS ORDERED: Sodium Chloride 0.45% 1,000 ML IV SCH (15:30)
[2018-09-24 16:30] LABS: CALCIUM 8.9 mg/dL (8.4-10.2)
--- NOTE | 2018-09-24 20:00 | PN ---
DATE: 09/24/2018 ENDO FOLLOWUP NOTE LOCATION: Room 411. SUBJECTIVE: This is an 88-year-old female presenting here . Her glycemic levels are fluctuating, but improved and her glucose values have ranged from 133 to 237 and 265 mg/dL. Her chemistries show a BUN of 21, potassium 3.5, chloride 100, CO2 26, glucose 189 and 138. So at this time, we will continue the hyperglycemic drug therapy given in combination with glipizide given as 10 mg b.i.d., Prandin given as 2 mg. We will obtain serial chemistries and supplement accordingly as needed. Kerri Bacon MD
[2018-09-24] MEDS: Latanoprost 0.005% Opht SOUTION OU SCH (21:31)
--- NOTE | 2018-09-24 22:09 | CP.PCM.PN ---
Subjective - Date & Time of Evaluation Date of Evaluation: 09/24/18 Time of Evaluation: 22:22 - Subjective Subjective: ID note appreciated Creat improved Objective - Vital Signs/Intake and Output Vital Signs (last 24 hours): Temp Pulse Resp BP Pulse Ox 97.4 F L 72 18 117/60 97 09/24/18 19:59 09/24/18 19:59 09/24/18 19:59 09/24/18 19:59 09/24/18 19:59 Intake and Output: 09/24/18 09/25/18 18:59 06:59 Intake Total 940 Output Total 665 Balance 275 - Medications Medications: Current Medications Artificial Tears (Artificial Tears) 1 drop OU RQ4 PRN PRN Reason: Dry eyes Last Admin: 09/23/18 09:01 Dose: 1 drop Atorvastatin Calcium (Lipitor) 20 mg PO HS [facility] Last Admin: 09/24/18 21:30 Dose: 20 mg Bethanechol Chloride (Urecholine) 50 mg PO Q8H [facility] Last Admin: 09/24/18 17:02 Dose: 50 mg Enalapril Maleate (Vasotec) 20 mg PO DAILY [facility] Last Admin: 09/24/18 09:38 Dose: 20 mg Enoxaparin Sodium (Lovenox) 30 mg SC DAILY [facility]; Protocol Fluticasone Propionate (Flonase) 2 spr MARY DAILY [facility] [place] Last Admin: 09/24/18 09:35 Dose: 2 spr Glipizide (Glucotrol Xl) 10 mg PO ACBD [facility] Last Admin: 09/24/18 17:01 Dose: 10 mg Haloperidol Lactate (Haldol) 0.25 mg PO Q8 PRN PRN Reason: Agitation Last Admin: 09/20/18 22:40 Dose: 0.25 mg Hydrochlorothiazide (Hydrodiuril) 25 mg PO DAILY [facility] [place] Last Admin: 09/20/18 14:05 Dose: Not Given Ceftriaxone Sodium 1 gm/ (Sodium Chloride) 100 mls @ 200 mls/hr IVPB DAILY [facility]; Protocol Last Admin: 09/24/18 09:37 Dose: 200 mls/hr Sodium Chloride (Sodium Chloride 0.45%) 1,000 mls @ 40 mls/hr IV .Q24H [facility] Stop: 09/25/18 15:29 Last Admin: 09/24/18 15:30 Dose: 40 mls/hr Insulin Human Regular (Humulin R) 0 units SC ACHS [facility]; Protocol Last Admin: 09/24/18 17:02 Dose: Not Given Latanoprost (Xalatan Opht) 1 drop OU HS [facility] [place] Last Admin: 09/24/18 21:31 Dose: 1 drop Repaglinide (Prandin) 2 mg PO TIDWM [facility] [place] Last Admin: 09/24/18 17:02 Dose: 2 mg - Labs Labs: 09/23/18 14:42 09/24/18 15:46 Assessment and Plan - Assessment and Plan (Free Text) Assessment: Recurrent falls mechanical Unsteady gait/ imbalance As per Neurology Cardiology PT GIOVANNI CKD improved Diabetic Nepphropathy IVF Nephrology Urinary retention UTI Hx Incontinence Urology Urine CS ABX MIDDM Nephrology Endo Dysthymia?? Psych COPD
[2018-09-25] MEDS: Insulin Regular 100 units/ml SC SCH ×4 (06:39→22:46)
[2018-09-25 08:09] LABS: URINE AMORPHOUS SEDIMENT RARE /ul (<OCC); URINE BILIRUBIN NEGATIVE (NEGATIVE); URINE BLOOD MODERATE (NEGATIVE); URINE CLARITY CLOUDY (Clear); URINE COLOR YELLOW (YELLOW); URINE GLUCOSE (UA) NEG (NEGATIVE); URINE LEUKOCYTE ESTERASE LARGE Leu/uL (Negative); URINE PROTEIN 30 mg/dL (NEGATIVE); URINE UROBILINOGEN 0.2-1.0 mg/dL (0.2-1.0)
[2018-09-25] MEDS: Artificial Tears Opht Soln OU PRN (08:11)
[2018-09-25] MEDS: Enoxaparin 30 mg Syringe SC SCH (08:11)
[2018-09-25] MEDS: Bethanechol 50 MG TAB PO SCH ×3 (08:19→17:47)
[2018-09-25] MEDS: GlipiZIDE 10 mg SR Tab PO SCH ×2 (08:19→17:46)
[2018-09-25] MEDS ORDERED: Haloperidol Lactate 2 mg/ml Liquid PO SCH (09:00)
[2018-09-25 10:09] LABS: MEAN CELL VOLUME 83.5 fl (81.0-99.0); MEAN CORPUSCULAR HGB CONC 33.6 g/dL (33.0-37.0); RBC 4.63 Mil/uL (3.80-5.20); RED CELL DISTRIBUTION WIDTH 13.5 % (11.5-14.5); WHITE BLOOD COUNT 7.3 K/uL (4.8-10.8)
[2018-09-25 10:21] LABS: CALCIUM 8.9 mg/dL (8.4-10.2)
--- NOTE | 2018-09-25 12:34 | CP.PCM.PN ---
Subjective - Date & Time of Evaluation Date of Evaluation: 09/25/18 Time of Evaluation: 12:32 - Subjective Subjective: UROLOGY pt seen today post removal of [place]. She has voided twice already with no difficulty Objective - Vital Signs/Intake and Output Vital Signs (last 24 hours): Temp Pulse Resp BP Pulse Ox 97.4 F L 78 18 166/69 H 96 09/25/18 08:47 09/25/18 08:47 09/25/18 08:47 09/25/18 08:47 09/25/18 08:47 Intake and Output: 09/25/18 09/25/18 06:59 18:59 Intake Total 480 Output Total 300 Balance 180 - Medications Medications: Current Medications Artificial Tears (Artificial Tears) 1 drop OU RQ4 PRN PRN Reason: Dry eyes Last Admin: 09/25/18 08:11 Dose: 1 drop Atorvastatin Calcium (Lipitor) 20 mg PO HS BITA Last Admin: 09/24/18 21:30 Dose: 20 mg Bethanechol Chloride (Urecholine) 50 mg PO Q8H [facility] Last Admin: 09/25/18 08:19 Dose: 50 mg Enalapril Maleate (Vasotec) 20 mg PO DAILY [facility] Last Admin: 09/25/18 08:20 Dose: 20 mg Enoxaparin Sodium (Lovenox) 30 mg SC DAILY [facility]; Protocol Last Admin: 09/25/18 08:11 Dose: 30 mg Fluticasone Propionate (Flonase) 2 spr MARY DAILY [facility] Last Admin: 09/25/18 08:11 Dose: 2 spr Glipizide (Glucotrol Xl) 10 mg PO ACBD [facility] Last Admin: 09/25/18 08:19 Dose: 10 mg Haloperidol Lactate (Haldol) 0.25 mg PO Q8 PRN PRN Reason: Agitation Last Admin: 09/20/18 22:40 Dose: 0.25 mg Hydrochlorothiazide (Hydrodiuril) 25 mg PO DAILY [facility] Last Admin: 09/20/18 14:05 Dose: Not Given Ceftriaxone Sodium 1 gm/ (Sodium Chloride) 100 mls @ 200 mls/hr IVPB DAILY [facility]; Protocol Last Admin: 09/25/18 08:10 Dose: 200 mls/hr Sodium Chloride (Sodium Chloride 0.45%) 1,000 mls @ 40 mls/hr IV .Q24H BITA Stop: 09/25/18 15:29 Last Admin: 09/24/18 15:30 Dose: 40 mls/hr Insulin Human Regular (Humulin R) 0 units SC [facility]; Protocol Last Admin: 09/25/18 06:39 Dose: Not Given Lactulose (Enulose) 20 gm PO ONCE ONE Stop: 09/26/18 12:02 Latanoprost (Xalatan Opht) 1 drop OU HS [facility] Last Admin: 09/24/18 21:31 Dose: 1 drop Repaglinide (Prandin) 2 mg PO TIDWM [facility] Last Admin: 09/25/18 08:19 Dose: 2 mg - Labs Labs: 09/25/18 09:15 09/25/18 09:15
--- NOTE | 2018-09-25 17:32 | CP.PCM.PN ---
Subjective - Date & Time of Evaluation Date of Evaluation: 09/25/18 Time of Evaluation: 09:00 - Subjective Subjective: repeat u/sa shows large wbc and LE started on IV rx Dr Pavon on board [place] removed Objective - Vital Signs/Intake and Output Vital Signs (last 24 hours): Temp Pulse Resp BP Pulse Ox 98.2 F 73 18 147/70 97 09/25/18 16:04 09/25/18 16:04 09/25/18 16:04 09/25/18 16:04 09/25/18 16:04 Intake and Output: 09/25/18 09/25/18 06:59 18:59 Intake Total 480 Output Total 300 Balance 180 - Medications Medications: Current Medications Artificial Tears (Artificial Tears) 1 drop OU RQ4 PRN PRN Reason: Dry eyes Last Admin: 09/25/18 08:11 Dose: 1 drop Atorvastatin Calcium (Lipitor) 20 mg PO HS [facility] Last Admin: 09/24/18 21:30 Dose: 20 mg Bethanechol Chloride (Urecholine) 50 mg PO Q8H [facility] Last Admin: 09/25/18 08:19 Dose: 50 mg Enalapril Maleate (Vasotec) 20 mg PO DAILY [facility] Last Admin: 09/25/18 08:20 Dose: 20 mg Enoxaparin Sodium (Lovenox) 30 mg SC DAILY [facility]; Protocol Last Admin: 09/25/18 08:11 Dose: 30 mg Fluticasone Propionate (Flonase) 2 spr MARY DAILY [facility] Last Admin: 09/25/18 08:11 Dose: 2 spr Glipizide (Glucotrol Xl) 10 mg PO ACBD [facility] Last Admin: 09/25/18 08:19 Dose: 10 mg Haloperidol Lactate (Haldol) 0.25 mg PO Q8 PRN PRN Reason: Agitation Last Admin: 09/20/18 22:40 Dose: 0.25 mg Hydrochlorothiazide (Hydrodiuril) 25 mg PO DAILY [facility] Last Admin: 09/20/18 14:05 Dose: Not Given Ceftriaxone Sodium 1 gm/ (Sodium Chloride) 100 mls @ 200 mls/hr IVPB DAILY [facility]; Protocol Last Admin: 09/25/18 08:10 Dose: 200 mls/hr Insulin Human Regular (Humulin R) 0 units SC ACHS [facility]; Protocol Last Admin: 09/25/18 12:10 Dose: Not Given Lactulose (Enulose) 20 gm PO ONCE ONE Stop: 09/26/18 12:02 Latanoprost (Xalatan Opht) 1 drop OU HS [facility] Last Admin: 09/24/18 21:31 Dose: 1 drop Repaglinide (Prandin) 2 mg PO TIDWM [facility] Last Admin: 09/25/18 08:19 Dose: 2 mg - Labs Labs: 09/25/18 09:15 09/25/18 09:15 - Constitutional Appears: Non-toxic, Chronically Ill - Head Exam Head Exam: NORMOCEPHALIC - Eye Exam Eye Exam: absent: Scleral icterus - ENT Exam ENT Exam: Mucous Membranes Dry - Neck Exam Neck Exam: absent: Thyromegaly - Respiratory Exam Respiratory Exam: Decreased Breath Sounds - Cardiovascular Exam Cardiovascular Exam: REGULAR RHYTHM - GI/Abdominal Exam GI & Abdominal Exam: Distended, Soft - Rectal Exam Rectal Exam: Deferred - Exam Exam: NORMAL INSPECTION - Extremities Exam Extremities Exam: absent: Pedal Edema - Back Exam Back Exam: absent: CVA tenderness (L), CVA tenderness (R) - Neurological Exam Neurological Exam: Alert, Awake Assessment and Plan (1) Frequent falls Status: Acute (2) Syncope Status: Acute (3) UTI (lower urinary tract infection) Status: Acute - Assessment and Plan (Free Text) Assessment: improving on iv rx
--- NOTE | 2018-09-25 18:21 | PN ---
DATE: 09/25/2018 ENDO FOLLOWUP NOTE ROOM: 411 SUBJECTIVE: This is an 88-year-old female with recent uncontrolled type 2 insulin-requiring diabetes, now being followed closely for metabolic management. Her glycemic levels are fluctuating with the variability of her oral intake as noted. The glucose levels overnight have ranged from 153-237 mg/dL. Her chemistry showed a BUN of 11, sodium 138, potassium 3.5, chloride 106, CO2 of 24, glucose 230 and creatinine 1.1. So at this time, we will continue the dual oral hypoglycemic drug therapy given in combination with glipizide at 10 mg b.i.d. before meals and Prandin given as 2 mg t.i.d. with meals as ordered. Januvia would be an excellent therapeutic option, but the carver is quite formidable and expensive as noted thereof. We will obtain serial chemistries and supplement accordingly as needed. We will follow. Kerri Bacon MD
--- NOTE | 2018-09-25 20:22 | CP.PCM.PN ---
Subjective - Date & Time of Evaluation Date of Evaluation: 09/25/18 Time of Evaluation: 22:22 - Subjective Subjective: Above noted Objective - Vital Signs/Intake and Output Vital Signs (last 24 hours): Temp Pulse Resp BP Pulse Ox 97.6 F 70 18 123/60 95 09/25/18 19:56 09/25/18 19:56 09/25/18 19:56 09/25/18 19:56 09/25/18 19:56 - Medications Medications: Current Medications Artificial Tears (Artificial Tears) 1 drop OU RQ4 PRN PRN Reason: Dry eyes Last Admin: 09/25/18 08:11 Dose: 1 drop Atorvastatin Calcium (Lipitor) 20 mg PO HS [facility] Last Admin: 09/24/18 21:30 Dose: 20 mg Bethanechol Chloride (Urecholine) 50 mg PO Q8H [facility] Last Admin: 09/25/18 17:47 Dose: 50 mg Enalapril Maleate (Vasotec) 20 mg PO DAILY [facility] Last Admin: 09/25/18 08:20 Dose: 20 mg Enoxaparin Sodium (Lovenox) 30 mg SC DAILY [facility]; Protocol Last Admin: 09/25/18 08:11 Dose: 30 mg Fluticasone Propionate (Flonase) 2 spr MARY DAILY [facility] Last Admin: 09/25/18 08:11 Dose: 2 spr Glipizide (Glucotrol Xl) 10 mg PO ACBD [facility] Last Admin: 09/25/18 17:46 Dose: 10 mg Haloperidol Lactate (Haldol) 0.25 mg PO Q8 PRN PRN Reason: Agitation Last Admin: 09/20/18 22:40 Dose: 0.25 mg Hydrochlorothiazide (Hydrodiuril) 25 mg PO DAILY [facility] Last Admin: 09/20/18 14:05 Dose: Not Given Ceftriaxone Sodium 1 gm/ (Sodium Chloride) 100 mls @ 200 mls/hr IVPB DAILY [facility]; Protocol Last Admin: 09/25/18 08:10 Dose: 200 mls/hr Insulin Human Regular (Humulin R) 0 units SC ACHS [facility]; Protocol Last Admin: 09/25/18 17:47 Dose: 3 units Lactulose (Enulose) 20 gm PO ONCE ONE Stop: 09/26/18 12:02 Latanoprost (Xalatan Opht) 1 drop OU HS [facility] Last Admin: 09/24/18 21:31 Dose: 1 drop Repaglinide (Prandin) 2 mg PO TIDWM [facility] Last Admin: 09/25/18 17:46 Dose: 2 mg - Labs Labs: 09/25/18 09:15 09/25/18 09:15 - Respiratory Exam Respiratory Exam: NORMAL BREATHING PATTERN - Cardiovascular Exam Cardiovascular Exam: REGULAR RHYTHM - GI/Abdominal Exam GI & Abdominal Exam: Normal Bowel Sounds Assessment and Plan - Assessment and Plan (Free Text) Assessment: Urinary retention UTI Hx Incontinence Almanzar d/c Urology ID IV ABX Recurrent falls mechanical Unsteady gait/ imbalance As per Neurology Cardiology PT GIOVANNI CKD improved Diabetic Nepphropathy IVF Nephrology MIDDM Nephrology Endo Dysthymia?? Psych COPD
[2018-09-25] MEDS: Latanoprost 0.005% Opht SOUTION OU SCH (22:46)
[2018-09-26] MEDS: Bethanechol 50 MG TAB PO SCH ×3 (01:26→16:54)
[2018-09-26] MEDS: Insulin Regular 100 units/ml SC SCH ×3 (06:47→17:11)
[2018-09-26] MEDS: GlipiZIDE 10 mg SR Tab PO SCH ×2 (07:58→16:55)
[2018-09-26] MEDS: Enoxaparin 30 mg Syringe SC SCH (08:41)
--- NOTE | 2018-09-26 11:06 | PN ---
DATE: 09/26/2018 LOCATION: Room 411. SUBJECTIVE: This is a 88-year-old female with recent uncontrolled type 2 diabetes, now being followed closely for metabolic management. Her glycemic levels are fluctuating with the variability of her oral intake and the glucose levels overnight have improved and have ranged from 173 to 199 mg/dL. Her chemistry showed a BUN of 11, sodium 138, potassium 3.5, chloride 106, CO2 of 24, glucose 230 and creatinine 1.1. So, at this time, we will continue the same dual oral hypoglycemic therapy as given with glipizide given as 10 mg b.i.d. before meals. We will also continue the Prandin given as 2 mg t.i.d. with meals as ordered. We will obtain serial chemistries and supplement accordingly as needed. We will follow. Kerri Bacon MD
--- NOTE | 2018-09-26 13:08 | CP.PCM.PCO ---
Assessment and Plan - Assessment and Plan (Free Text) Assessment: pt. seen and examined; at bedside awake ,alert, fair appetite, voiding freely pt. cleared for d/c to [facility] today by and cont. Rocephin 1gm iv daily x 4 more days cont. monitor pvr above d/w who agrees with plan pt. to be admitted under in [place] view; notified aware
[2018-09-26 15:53] VITALS: BP 147/83; PULSE 77; RESP 20; TEMP 97.5; O2SAT 99
[2018-09-26] MEDS: Artificial Tears Opht Soln OU PRN (16:54)
--- NOTE | 2018-09-26 20:23 | CP.PCM.PN ---
Subjective - Date & Time of Evaluation Date of Evaluation: 09/26/18 Time of Evaluation: 22:22 - Subjective Subjective: Urine residual 100-150 Long D/W Urology Improvement over previous significant retention Presently on Urecholine Objective - Vital Signs/Intake and Output Vital Signs (last 24 hours): Temp Pulse Resp BP Pulse Ox 97.5 F L 77 20 147/83 99 09/26/18 15:52 09/26/18 15:52 09/26/18 15:52 09/26/18 15:52 09/26/18 15:52 - Medications Medications: Current Medications Artificial Tears (Artificial Tears) 1 drop OU RQ4 PRN PRN Reason: Dry eyes Last Admin: 09/26/18 16:54 Dose: 1 drop Atorvastatin Calcium (Lipitor) 20 mg PO HS [facility] Last Admin: 09/25/18 22:46 Dose: 20 mg Bethanechol Chloride (Urecholine) 50 mg PO Q8H [facility] Last Admin: 09/26/18 16:54 Dose: 50 mg Enalapril Maleate (Vasotec) 20 mg PO DAILY [facility] Last Admin: 09/26/18 08:41 Dose: 20 mg Enoxaparin Sodium (Lovenox) 30 mg SC DAILY [facility]; Protocol Last Admin: 09/26/18 08:41 Dose: 30 mg Fluticasone Propionate (Flonase) 2 spr MARY DAILY [facility] Last Admin: 09/26/18 08:40 Dose: 2 spr Glipizide (Glucotrol Xl) 10 mg PO ACBD [facility] Last Admin: 09/26/18 16:55 Dose: 10 mg Haloperidol Lactate (Haldol) 0.25 mg PO Q8 PRN PRN Reason: Agitation Last Admin: 09/20/18 22:40 Dose: 0.25 mg Hydrochlorothiazide (Hydrodiuril) 25 mg PO DAILY [facility] Last Admin: 09/20/18 14:05 Dose: Not Given Ceftriaxone Sodium 1 gm/ (Sodium Chloride) 100 mls @ 200 mls/hr IVPB DAILY [facility]; Protocol Last Admin: 09/26/18 08:39 Dose: 200 mls/hr Insulin Human Regular (Humulin R) 0 units SC ACHS [facility]; Protocol Last Admin: 09/26/18 17:11 Dose: Not Given Latanoprost (Xalatan Opht) 1 drop OU HS [facility] Last Admin: 09/25/18 22:46 Dose: 1 drop Repaglinide (Prandin) 2 mg PO TIDWM [facility] Last Admin: 09/26/18 16:54 Dose: 2 mg - Labs Labs: 09/25/18 09:15 09/25/18 09:15 - Respiratory Exam Respiratory Exam: NORMAL BREATHING PATTERN - Cardiovascular Exam Cardiovascular Exam: REGULAR RHYTHM - GI/Abdominal Exam GI & Abdominal Exam: Normal Bowel Sounds Assessment and Plan - Assessment and Plan (Free Text) Assessment: Urinary retention UTI Hx Incontinence Almanzar d/c Urology ID IV ABX Recurrent falls mechanical Unsteady gait/ imbalance As per Neurology Cardiology PT GIOVANNI CKD improved Diabetic Nepphropathy IVF Nephrology MIDDM Nephrology Endo Dysthymia?? Psych COPD
== END 2018-09-26 19:55 | DRG 312 ==
LOC: H.ER 07:58 → H.ERHOLD 09:29 → H.TEL 11:23
PROVIDERS: ADMIT Family Medicine Geriatric Medicine; ATTEND Family Medicine Geriatric Medicine
DX: R55 Syncope and collapse (principal); N17.9 Acute kidney failure, unspecified; N39.0 Urinary tract infection, site not specified; F05 Delirium due to known physiological condition; R29.6 Repeated falls; E11.65 Type 2 diabetes mellitus with hyperglycemia; E86.0 Dehydration; E11.21 Type 2 diabetes mellitus with diabetic nephropathy; R33.8 Other retention of urine; E11.22 Type 2 diabetes mellitus with diabetic chronic kidney disease; N18.9 Chronic kidney disease, unspecified; I12.9 Hypertensive chronic kidney disease with stage 1 through stage 4 chronic kidney disease, or unspecified chronic kidney disease; B96.89 Other specified bacterial agents as the cause of diseases classified elsewhere; R26.89 Other abnormalities of gait and mobility; R32 Unspecified urinary incontinence; E78.5 Hyperlipidemia, unspecified; E78.00 Pure hypercholesterolemia, unspecified; M81.0 Age-related osteoporosis without current pathological fracture; J44.9 Chronic obstructive pulmonary disease, unspecified; Z79.4 Long term (current) use of insulin; Z91.81 History of falling; Z87.442 Personal history of urinary calculi; Z87.891 Personal history of nicotine dependence

== ENCOUNTER 2018-12-08 02:21 | Inpatient (IN) | payer MEDICARE ==
[2018-12-08 02:22] VITALS: BMI 24.6
--- NOTE | 2018-12-08 03:51 | ED PDOC ---
Lower Extremity Pain/Injury Time Seen by Provider: 12/08/18 02:52 Chief Complaint (Nursing): Trauma Chief Complaint (Provider): Right upper leg pain History Per: Patient History/Exam Limitations: no limitations Onset/Duration Of Symptoms: Days Current Symptoms Are (Timing): Still Present Additional History Per: Family ( ) Additional Complaint(s): 88 year old female presents to the ED via EMS with her for right upper leg pain onset tonight. Patient reports she fell while getting up to go to the bathroom. She slipped and landed on her right hip. Her states, she had not returned back to bed and he found her on the floor so he called the EMS. Otherwise, patient denies dizziness or loss of conciseness before or after the fall, headache or weakness. PMD: Dr. Stallings Past Medical History Reviewed: Historical Data, Nursing Documentation, Vital Signs Vital Signs: Last Vital Signs Temp 98.1 F 12/08/18 02:37 Pulse 84 12/08/18 02:37 Resp 19 12/08/18 02:37 BP 141/61 12/08/18 02:37 Pulse Ox 98 12/08/18 02:37 Primary Care Provider: Nickolas Whittington - Medical History PMH: Diabetes, HTN, Hypercholesterolemia, Kidney Stones Denies: HIV, Chronic Kidney Disease - Surgical History Surgical History: - Family History Family History: States: Unknown Family Hx - Home Medications Home Medications: Ambulatory Orders Medication Instructions Recorded Enalapril Maleate 20 mg PO DAILY 10/01/14 GlipiZIDE SR [Glucotrol XL] 10 mg PO DAILY 10/01/14 Latanoprost 0.005% Opht [Xalatan 1 drop BOTHEYES HS 10/01/14 Opht] Fluticasone Nasal [Flonase] 2 spray MARY DAILY 09/18/18 Simvastatin [Zocor] 20 mg PO DAILY 09/18/18 hydroCHLOROthiazide [Hydrodiuril] 25 mg PO DAILY 09/18/18 Bethanechol [Urecholine] 50 mg PO Q8H tab 09/26/18 Enoxaparin [Lovenox] 30 mg SC DAILY syr 09/26/18 Haloperidol Lactate [Haldol] 0.25 mg PO Q8 PRN ml 09/26/18 Insulin Human Regular [HumuLIN R] 0 units SC ACHS ml 09/26/18 Latanoprost 0.005% Opht [Xalatan 1 drop OU HS bottle 09/26/18 Opht] Polyethylene Glycol/Polyvinyl 1 drop OU RQ4 PRN bottle 09/26/18 [Artificial Tears] Repaglinide [Prandin] 2 mg PO TIDWM tab 09/26/18 cefTRIAXone 1 gm [Rocephin 1 gram 1 gm IVPB DAILY #4 bag 09/26/18 IVPB] - Allergies Allergies/Adverse Reactions: Allergies Allergy/AdvReac Type Severity Reaction Status Date / Time lactose Allergy VOMITING Verified 12/08/18 02:39 Review of Systems ROS Statement: Except As Marked, All Systems Reviewed And Found Negative Constitutional: Negative for: Fever Cardiovascular: Negative for: Chest Pain Respiratory: Negative for: Cough, Shortness of Breath Musculoskeletal: Positive for: Leg Pain (right ) Neurological: Negative for: Dizziness Physical Exam - Reviewed Nursing Documentation Reviewed: Yes Vital Signs Reviewed: Yes - Physical Exam Appears: Positive for: Well, Non-toxic, No Acute Distress Head Exam: Positive for: ATRAUMATIC, NORMAL INSPECTION, NORMOCEPHALIC Skin: Positive for: Normal Color, Warm, Dry. Negative for: Rash Eye Exam: Positive for: Normal appearance Cardiovascular/Chest: Positive for: Regular Rate, Rhythm. Negative for: Murmur Respiratory: Positive for: Normal Breath Sounds. Negative for: Decreased Breath Sounds, Wheezing, Respiratory Distress Pulses-Dorsalis Pedis (L): 2+ Pulses-Dorsalis Pedis (R): 2+ Pulses-Post. Tibialis (L): 2+ Pulses-Post. Tibialis (R): 2+ Gastrointestinal/Abdominal: Positive for: Normal Exam, Soft. Negative for: Tenderness Extremity: Positive for: Normal ROM (at right ankle and toes ), Tenderness (right upper leg), Other (no movement when rocking of pelvis; pain limiting movement at hip and right knee ) Neurological/Psych: Positive for: Awake, Alert, Normal Tone, Oriented (x3) - Laboratory Results Result Diagrams: 12/09/18 05:15 12/09/18 05:15 - ECG O2 Sat by Pulse Oximetry: 98 (RA) Pulse Ox Interpretation: Normal Medical Decision Making Medical Decision Making: Time: 025 Impression: workup for right hip/femur fracture secondary to fall. Most likely to admit and patient is unlikely to move due to pain Plan: BBK type and screen EKG BMP CBC w/ differential Chest portable [RAD] Morphine 2mg Right femur xray Right hip xray Re-evaluation Scribe Attestation: Documented by Gerhard Simons, acting as a scribe for Citlaly Dominguez MD Provider Scribe Attestation: All medical record entries made by the Scribe were at my direction and personally dictated by me. I have reviewed the chart and agree that the record accurately reflects my personal performance of the history, physical exam, medic al decision making, and the department course for this patient. I have also personally directed, reviewed, and agree with the discharge instructions and disposition. Disposition - Clinical Impression Clinical Impression: Closed intertrochanteric fracture of right femur - Disposition Disposition Time: 04:20 Condition: GUARDED
[2018-12-08 03:56] LABS: BASO # 0.1 K/uL (0.0-0.2); BASO % 0.4 % (0.0-2.0); EOS # 0.1 K/uL (0.0-0.7); HEMOGLOBIN 12.9 g/dL (12.0-16.0); LYMPH # 1.5 K/uL (1.0-4.3); LYMPH % 10.7 % (20.0-40.0); MEAN CELL VOLUME 85.1 fl (81.0-99.0); MEAN CORPUSCULAR HEMOGLOBIN 28.4 pg (27.0-31.0); MEAN CORPUSCULAR HGB CONC 33.3 g/dL (33.0-37.0); MEAN PLATELET VOLUME 9.9 fl (7.2-11.7); MONO # 0.9 K/uL (0.0-0.8); MONO % 6.7 % (0.0-10.0); NEUT # 11.1 K/uL (1.8-7.0); NEUT % 81.2 % (50.0-75.0); RBC 4.56 Mil/uL (3.80-5.20); RED CELL DISTRIBUTION WIDTH 15.3 % (11.5-14.5); WHITE BLOOD COUNT 13.7 K/uL (4.8-10.8)
[2018-12-08 04:03] LABS: CALCIUM 9.3 mg/dL (8.4-10.2)
[2018-12-08] MEDS: Sodium Chloride 0.45% 1,000 ML IV SCH ×2 (08:30→22:00)
--- NOTE | 2018-12-08 08:55 | CP.PCM.CON ---
History of Present Illness - History of Present Illness History of Present Illness: Orthopedic consultation Dr. Calles 88F complains of right hip pain after fall at home. Denies head injury, denies pain in other extremities, denies CP/SOB/dizziness, denies numbness/tingling. She says that the pain medication isn't doing anything and she is still in a lot of pain. PMH: HTN, DM, HLD, kidney stones PSH: NKDA Review of Systems - Review of Systems All systems: reviewed and no additional remarkable complaints except - Cardiovascular Cardiovascular: As Per HPI - Respiratory Respiratory: As Per HPI - Musculoskeletal Musculoskeletal: As Per HPI - Integumentary Integumentary: As Per HPI - Neurological Neurological: As Per HPI - Hematologic/Lymphatic Hematologic: absent: As Per HPI, Easy Bleeding, Easy Bruising, Lymphadenopathy, Other Past Patient History - Past Medical History & Family History Past Medical History?: Yes Past Family History: Reviewed and not pertinent - Past Social History Smoking Status: Current Some Days Smoker - CARDIAC Hx Hypercholesterolemia: Yes Hx Hypertension: Yes - PULMONARY Hx Respiratory Disorders: No - NEUROLOGICAL Hx Neurological Disorder: No - HEENT Hx HEENT Problems: Yes (glaucoma) - RENAL Hx Chronic Kidney Disease: No Hx Kidney Stones: Yes - ENDOCRINE/METABOLIC Hx Endocrine Disorders: Yes (dm2) - HEMATOLOGICAL/ONCOLOGICAL Hx Human Immunodeficiency Virus (HIV): No - INTEGUMENTARY Hx Dermatological Problems: No - MUSCULOSKELETAL/RHEUMATOLOGICAL Hx Musculoskeletal Disorders: No Hx Falls: Yes - GASTROINTESTINAL Hx Gastrointestinal Disorders: No - GENITOURINARY/GYNECOLOGICAL Hx Genitourinary Disorders: No - PSYCHIATRIC Hx Psychophysiologic Disorder: No Hx Substance Use: No - SURGICAL HISTORY Hx Hysterectomy: Yes - ANESTHESIA Hx Anesthesia: Yes Hx Anesthesia Reactions: No Hx Malignant Hyperthermia: No Meds Allergies/Adverse Reactions: Allergies Allergy/AdvReac Type Severity Reaction Status Date / Time lactose Allergy VOMITING Verified 12/08/18 02:39 - Medications Medications: Current Medications Acetaminophen (Tylenol 325mg Tab) 650 mg PO Q6 BITA Sodium Chloride (Sodium Chloride 0.45%) 1,000 mls @ 80 mls/hr IV .[id number] BITA Stop: 12/09/18 08:25 Physical Exam - Constitutional Appears: Well, No Acute Distress - Head Exam Head Exam: ATRAUMATIC - Neck Exam Neck exam: Positive for: Full Rom, Normal Inspection - Respiratory Exam Respiratory Exam: NORMAL BREATHING PATTERN - Cardiovascular Exam Additional comments: +dp/PT - Expanded Lower Extremities Exam Right Hip exam: external rotation, shortening, tenderness Ankle exam: FULL ROM, NORMAL INSPECTION - Neurological Exam Neurological exam: Alert, Oriented x3 - Psychiatric Exam Psychiatric exam: Normal Affect, Normal Mood - Skin Skin Exam: Dry, Intact, Normal Color, Warm Results - Vital Signs Recent Vital Signs: Last Vital Signs Temp 99.2 F 12/08/18 08:04 Pulse 87 12/08/18 08:04 Resp 20 12/08/18 08:04 BP 132/70 12/08/18 08:04 Pulse Ox 97 12/08/18 08:04 - Labs Result Diagrams: 12/08/18 03:51 12/08/18 03:51 Labs: Laboratory Results - last 24 hr 12/08/18 12/08/18 12/08/18 03:47 03:51 03:51 WBC 13.7 H D RBC 4.56 Hgb 12.9 Hct 38.8 MCV 85.1 MCH 28.4 MCHC 33.3 RDW 15.3 H Plt Count 154 MPV 9.9 Neut % (Auto) 81.2 H Lymph % (Auto) 10.7 L [place] % (Auto) 6.7 Eos % (Auto) 1.0 Baso % (Auto) 0.4 Neut # (Auto) 11.1 H Lymph # (Auto) 1.5 [place] # (Auto) 0.9 H Eos # (Auto) 0.1 Baso # (Auto) 0.1 Sodium 138 Potassium 3.5 L Chloride 96 L Carbon Dioxide 27 Anion Gap 19 BUN 21 H Creatinine 1.3 H Est GFR ( Amer) 47 Est GFR (Non-Af Amer) 39 Random Glucose 227 H Calcium 9.3 Blood Type O POSITIVE Antibody Screen Negative BBK History Checked No verified bt Assessment & Plan (1) Closed intertrochanteric fracture of right femur Assessment and Plan: hip and femur xrays reviewed: ap/lat, shows right hip intertrochanteric fracture, mildly displaced will need ORIF, trochanteric nailing Saturday 12/09 10am pending optimization VTE proph with SCD labs reviewed, vit d ordered, type cross, u/a d/w Dr. Calles, agrees with above Status: Acute
[2018-12-08] MEDS ORDERED: Potassium Chloride 20 mEq ER Tab PO ONE (09:10)
[2018-12-08] MEDS ORDERED: Artificial Tears Opht Soln OU PRN (09:17)
[2018-12-08] MEDS ORDERED: Haloperidol Lactate 2 mg/ml Liquid PO PRN (09:17)
[2018-12-08] MEDS ORDERED: GlipiZIDE 10 mg SR Tab PO SCH (09:20)
[2018-12-08] MEDS: Bethanechol 50 MG TAB PO SCH ×3 (10:14→17:30)
[2018-12-08 10:23] LABS: PROTHROMBIN TIME 11.6 Seconds (9.8-13.1)
[2018-12-08 10:25] LABS: PARTIAL THROMBOPLASTIN TIME 31.4 Seconds (25.6-37.1)
--- NOTE | 2018-12-08 10:50 | CARD ---
APPROVED REPORT Date of service: 12/08/2018 EKG Measurement Heart [id number] <Conclusion> Normal sinus rhythm Possible Left atrial enlargement Borderline ECG
[2018-12-08] MEDS ORDERED: Insulin Regular 100 units/ml SC SCH (11:30)
--- NOTE | 2018-12-08 11:44 | CP.PCM.CON ---
History of Present Illness - History of Present Illness History of Present Illness: Neurology Consultation Note: Consult requested by Dr. Whittington Mrs. Ko is an 88-year-old woman, who had a fall at home and complains of hip pain that is severe as well as weakness on that side. Neurology was consulted for the patient's history of falls. The patient states that this time she fell because she went to open the microwave door and the handle came off and she fell back. She denied any dizziness, light-headedness, loss of consciousness or balance/gait changes. Review of Systems - Constitutional Constitutional: absent: As Per HPI, Anorexia, Chills, Daytime Sleepiness, Excessive Sweating, Fatigue, Fever, Frequent Falls, Headache, Increased Appetite, Lethargy, Malaise, Night Sweats, Snoring, Sleep Apnea, Weight Gain, Weight Loss, Weakness, Other - EENT Eyes: absent: As Per HPI, Blind Spots, Blurred Vision, Change in Vision, Decreased Night Vision, Diplopia, Discharge, Dry Eye, Exophthalmos, Floaters, Irritation, Itchy Eyes, Loss of Peripheral Vision, Pain, Photophobia, Requires Corrective Lenses, Sees Flashes, Spots in Vision, Tunnel Vision, Other Visual Disturbances, Loss of Vision, Other Ears: absent: As Per HPI, Decreased Hearing, Ear Discharge, Ear Pain, Tinnitus, Abnormal Hearing, Disequilibrium, Dizziness, Other Nose/Mouth/Throat: absent: As Per HPI, Epistaxis, Nasal Congestion, Nasal Discharge, Nasal Obstruction, Nasal Trauma, Nose Pain, Post Nasal Drip, Sinus Pain, Sinus Pressure, Bleeding Gums, Change in Voice, Dental Pain, Dry Mouth, D ysphagia, Halitosis, Hoarsness, Lip Swelling, Mouth Lesions, Mouth Pain, Odynophagia, Sore Throat, Throat Swelling, Tongue Swelling, Facial Pain, Neck Pain, Neck Mass, Other - Cardiovascular Cardiovascular: absent: As Per HPI, Acrocyanosis, Chest Pain, Chest Pain at Rest, Chest Pain with Activity, Claudication, Diaphoresis, Dyspnea, Dyspnea on Exertion, Edema, Irregular Heart Rhythm, Pain Radiating to Arm/Neck/Jaw, Leg Edema, Leg Ulcers, Lightheadedness, Orthopnea, Palpitations, Paroxysmal Nocturnal Dyspnea, Pedal Edema, Radiating Pain, Rapid Heart Rate, Slow Heart Rate, Syncope, Other - Musculoskeletal Musculoskeletal: As Per HPI - Neurological Neurological: As Per HPI - Psychiatric Psychiatric: absent: As Per HPI, Abnormal Sleep Pattern, Anhedonia, Anxiety, Auditory Hallucinations, Behavioral Changes, Change in Appetite, Change in Libido, Confusion, Depression, Difficulty Concentrating, Hallucinations, Homicidal Ideation, Hopelessness, Irritability, Memory Loss, Mood Swings, Panic Attacks, Paranoia, Suicidal Ideation, Visual Hallucinations, Tactile Hallucinations, Other - Endocrine Endocrine: absent: As Per HPI, Change in Body Appearance, Change in Libido, Cold Intolorance, Deepening of Voice, Excessive Sweating, Fatigue, Flushing, Heat Intolorance, Increase in Ring/Shoe/Hat Size, Palpitations, Polydipsia, Polyphagia, Polyuria, Other Past Patient History - Past Medical History & Family History Past Medical History?: Yes Past Family History: Reviewed and not pertinent - Past Social History Smoking Status: Current Some Days Smoker - CARDIAC Hx Hypercholesterolemia: Yes Hx Hypertension: Yes - PULMONARY Hx Respiratory Disorders: No - NEUROLOGICAL Hx Neurological Disorder: No - HEENT Hx HEENT Problems: Yes (glaucoma) - RENAL Hx Chronic Kidney Disease: No Hx Kidney Stones: Yes - ENDOCRINE/METABOLIC Hx Endocrine Disorders: Yes (dm2) - HEMATOLOGICAL/ONCOLOGICAL Hx Human Immunodeficiency Virus (HIV): No - INTEGUMENTARY Hx Dermatological Problems: No - MUSCULOSKELETAL/RHEUMATOLOGICAL Hx Musculoskeletal Disorders: No Hx Falls: Yes - GASTROINTESTINAL Hx Gastrointestinal Disorders: No - GENITOURINARY/GYNECOLOGICAL Hx Genitourinary Disorders: No - PSYCHIATRIC Hx Psychophysiologic Disorder: No Hx Substance Use: No - SURGICAL HISTORY Hx Hysterectomy: Yes - ANESTHESIA Hx Anesthesia: Yes Hx Anesthesia Reactions: No Hx Malignant Hyperthermia: No Meds Allergies/Adverse Reactions: Allergies Allergy/AdvReac Type Severity Reaction Status Date / Time lactose Allergy VOMITING Verified 12/08/18 02:39 - Medications Medications: Current Medications Acetaminophen (Tylenol 325mg Tab) 650 mg PO Q6 [facility] Last Admin: 12/08/18 10:32 Dose: 650 mg Artificial Tears (Artificial Tears) 1 drop OU RQ4 PRN PRN Reason: Dry eyes Atorvastatin Calcium (Lipitor) 10 mg PO DAILY [facility] Last Admin: 12/08/18 10:32 Dose: 10 mg Bethanechol Chloride (Urecholine) 50 mg PO Q8H [facility] Last Admin: 12/08/18 10:43 Dose: 50 mg Enalapril Maleate (Vasotec) 20 mg PO DAILY [facility] Last Admin: 12/08/18 10:44 Dose: 20 mg Fluticasone Propionate (Flonase) 2 spr MARY DAILY [facility] Glipizide (Glucotrol Xl) 10 mg PO DAILY [facility] Last Admin: 12/08/18 10:43 Dose: 10 mg Haloperidol Lactate (Haldol) 0.25 mg PO Q8 PRN PRN Reason: Agitation Hydrochlorothiazide (Hydrodiuril) 25 mg PO DAILY [facility] Last Admin: 12/08/18 10:32 Dose: 25 mg Sodium Chloride (Sodium Chloride 0.45%) 1,000 mls @ 80 mls/hr IV .[id number] [facility] Stop: 12/09/18 08:25 Last Admin: 12/08/18 08:30 Dose: 80 mls/hr Insulin Human Regular (Humulin R) 0 units SC [facility]; Protocol Latanoprost (Xalatan Opht) 1 drop OU HS [facility] Morphine Sulfate (Morphine) 2 mg IVP Q4 PRN PRN Reason: Pain, severe (8-10) Last Admin: 12/08/18 10:26 Dose: 2 mg Morphine Sulfate (Morphine) 1 mg IVP Q4 PRN PRN Reason: Pain, moderate (4-7) Repaglinide (Prandin) 2 mg PO TIDWM [facility] Physical Exam - Constitutional Appears: Well - Head Exam Head Exam: ATRAUMATIC, NORMAL INSPECTION, NORMOCEPHALIC - Eye Exam Eye Exam: EOMI, Normal appearance, PERRL Pupil Exam: NORMAL ACCOMODATION, PERRL - ENT Exam ENT Exam: Mucous Membranes Moist, Normal Exam - Neck Exam Neck exam: Positive for: Normal Inspection - Respiratory Exam Respiratory Exam: Clear to Auscultation Bilateral, NORMAL BREATHING PATTERN - Cardiovascular Exam Cardiovascular Exam: REGULAR RHYTHM, +S1, +S2 - GI/Abdominal Exam GI & Abdominal Exam: Normal Bowel Sounds, Soft. absent: Tenderness - Extremities Exam Extremities exam: Positive for: tenderness - Back Exam Back exam: NORMAL INSPECTION - Neurological Exam Neurological exam: Alert, CN II-XII Intact, Oriented x3, Reflexes Normal Additional comments: Gait not assessed due to patients pain level. No focal weakness noted other t [place] that limited by pain in the right hip and leg. No ataxia, no abnormal coordination. - Psychiatric Exam Psychiatric exam: Normal Affect, Normal Mood - Skin Skin Exam: Dry, Intact, Normal Color, Warm Results - Vital Signs Recent Vital Signs: Last Vital Signs Temp 99.2 F 12/08/18 08:04 Pulse 87 12/08/18 08:04 Resp 20 12/08/18 08:04 BP 132/70 12/08/18 08:04 Pulse Ox 97 12/08/18 08:04 - Labs Result Diagrams: 12/08/18 03:51 12/08/18 03:51 Labs: Laboratory Results - last 24 hr 12/08/18 12/08/18 12/08/18 03:47 03:51 03:51 WBC 13.7 H D RBC 4.56 Hgb 12.9 Hct 38.8 MCV 85.1 MCH 28.4 MCHC 33.3 RDW 15.3 H Plt Count 154 MPV 9.9 Neut % (Auto) 81.2 H Lymph % (Auto) 10.7 L Yell % (Auto) 6.7 Eos % (Auto) 1.0 Baso % (Auto) 0.4 Neut # (Auto) 11.1 H Lymph # (Auto) 1.5 Yell # (Auto) 0.9 H Eos # (Auto) 0.1 Baso # (Auto) 0.1 PT INR APTT Sodium 138 Potassium 3.5 L Chloride 96 L Carbon Dioxide 27 Anion Gap 19 BUN 21 H Creatinine 1.3 H Est GFR ( Amer) 47 Est GFR (Non-Af Amer) 39 Random Glucose 227 H Calcium 9.3 Blood Type O POSITIVE Blood Type Confirm Antibody Screen Negative Crossmatch See Detail BBK History Checked No verified bt 12/08/18 12/08/18 09:50 09:58 WBC RBC Hgb Hct MCV MCH MCHC RDW Plt Count MPV Neut % (Auto) Lymph % (Auto) Yell % (Auto) Eos % (Auto) Baso % (Auto) Neut # (Auto) Lymph # (Auto) Yell # (Auto) Eos # (Auto) Baso # (Auto) PT 11.6 INR 1.0 APTT 31.4 Sodium Potassium Chloride Carbon Dioxide Anion Gap BUN Creatinine Est GFR ( Amer) Est GFR (Non-Af Amer) Random Glucose Calcium Blood Type Blood Type Confirm O POSITIVE Antibody Screen Crossmatch BBK History Checked Assessment & Plan (1) Frequent falls Assessment and Plan: Likely due to deconditioning and arthritic changes. Will obtain CT head to rule out any cerebellar pathology. I recommend PT/OT for further management. Thank you for this consultation. Status: Acute
--- NOTE | 2018-12-08 11:58 | RAD ---
Date of service: 12/08/2018 HISTORY: possible admission COMPARISON: 09/18/2018. FINDINGS: LUNGS: No active pulmonary disease. PLEURA: No significant pleural effusion identified, no pneumothorax apparent. CARDIOVASCULAR: No atherosclerotic calcification present Normal. OSSEOUS STRUCTURES: No significant abnormalities. VISUALIZED UPPER ABDOMEN: Normal. OTHER FINDINGS: None. IMPRESSION: No active disease. No significant interval change compared to the prior examination(s).
--- NOTE | 2018-12-08 12:23 | RAD ---
Date of service: 12/08/2018 PROCEDURE: Right femur HISTORY: mechanical fall COMPARISON: December 08, 2018. Right hip reported separately TECHNIQUE: Two views. FINDINGS: Inter trochanteric fracture. Possible avulsion fracture of the lesser trochanter. No appreciable angulation or impaction. IMPRESSION: Acute inter trochanteric fracture.
--- NOTE | 2018-12-08 12:30 | RAD ---
Date of service: 12/08/2018 PROCEDURE: Pelvis and right hip. HISTORY: mechanical fall COMPARISON: December 08, 2018. Right femur reported separately TECHNIQUE: Two views FINDINGS: Inter trochanteric fracture without appreciable angulation, impaction or distraction. Preserved femoral acetabular relationship. Degenerative changes both hips, symmetrical. Postoperative changes in the pelvis. IMPRESSION: Proximal right femur: Acute inter trochanteric fracture.
--- NOTE | 2018-12-08 12:45 | CP.PCM.CON ---
History of Present Illness - History of Present Illness History of Present Illness: 88 year old female pmh hypertension and diabetes mellitus s/p fall with resultant fracture of lower extremity. No c/o of chest pain, shortness of breath or loss of consciousness. Alert and verbal lying comfortably in bed. Past Patient History - Past Medical History & Family History Past Medical History?: Yes Past Family History: Reviewed and not pertinent - Past Social History Smoking Status: Current Some Days Smoker - CARDIAC Hx Hypercholesterolemia: Yes Hx Hypertension: Yes - PULMONARY Hx Respiratory Disorders: No - NEUROLOGICAL Hx Neurological Disorder: No - HEENT Hx HEENT Problems: Yes (glaucoma) - RENAL Hx Chronic Kidney Disease: No Hx Kidney Stones: Yes - ENDOCRINE/METABOLIC Hx Endocrine Disorders: Yes (dm2) - HEMATOLOGICAL/ONCOLOGICAL Hx Human Immunodeficiency Virus (HIV): No - INTEGUMENTARY Hx Dermatological Problems: No - MUSCULOSKELETAL/RHEUMATOLOGICAL Hx Musculoskeletal Disorders: No Hx Falls: Yes - GASTROINTESTINAL Hx Gastrointestinal Disorders: No - GENITOURINARY/GYNECOLOGICAL Hx Genitourinary Disorders: No - PSYCHIATRIC Hx Psychophysiologic Disorder: No Hx Substance Use: No - SURGICAL HISTORY Hx Hysterectomy: Yes - ANESTHESIA Hx Anesthesia: Yes Hx Anesthesia Reactions: No Hx Malignant Hyperthermia: No Meds Allergies/Adverse Reactions: Allergies Allergy/AdvReac Type Severity Reaction Status Date / Time lactose Allergy VOMITING Verified 12/08/18 02:39 - Medications Medications: Current Medications Acetaminophen (Tylenol 325mg Tab) 650 mg PO Q6 [facility] Last Admin: 12/08/18 10:32 Dose: 650 mg Artificial Tears (Artificial Tears) 1 drop OU RQ4 PRN PRN Reason: Dry eyes Atorvastatin Calcium (Lipitor) 10 mg PO DAILY [facility] Last Admin: 12/08/18 10:32 Dose: 10 mg Bethanechol Chloride (Urecholine) 50 mg PO Q8H [facility] Last Admin: 12/08/18 10:43 Dose: 50 mg Enalapril Maleate (Vasotec) 20 mg PO DAILY [facility] Last Admin: 12/08/18 10:44 Dose: 20 mg Fluticasone Propionate (Flonase) 2 spr MARY DAILY [facility] Glipizide (Glucotrol Xl) 10 mg PO DAILY [facility] Last Admin: 12/08/18 10:43 Dose: 10 mg Haloperidol Lactate (Haldol) 0.25 mg PO Q8 PRN PRN Reason: Agitation Hydrochlorothiazide (Hydrodiuril) 25 mg PO DAILY [facility] Last Admin: 12/08/18 10:32 Dose: 25 mg Sodium Chloride (Sodium Chloride 0.45%) 1,000 mls @ 80 mls/hr IV .[id number] [facility] Stop: 12/09/18 08:25 Last Admin: 12/08/18 08:30 Dose: 80 mls/hr Insulin Human Regular (Humulin R) 0 units SC ACHS [facility]; Protocol Latanoprost (Xalatan Opht) 1 drop OU HS [facility] Morphine Sulfate (Morphine) 2 mg IVP Q4 PRN PRN Reason: Pain, severe (8-10) Last Admin: 12/08/18 10:26 Dose: 2 mg Morphine Sulfate (Morphine) 1 mg IVP Q4 PRN PRN Reason: Pain, moderate (4-7) Repaglinide (Prandin) 2 mg PO TIDWM [facility] Physical Exam - Constitutional Appears: No Acute Distress - Neck Exam Neck exam: Positive for: Normal Inspection - Respiratory Exam Respiratory Exam: Clear to Auscultation Bilateral - Cardiovascular Exam Cardiovascular Exam: Systolic Murmur - GI/Abdominal Exam GI & Abdominal Exam: Normal Bowel Sounds - Extremities Exam Extremities exam: Positive for: normal inspection Results - Vital Signs Recent Vital Signs: Last Vital Signs Temp 99.2 F 12/08/18 08:04 Pulse 87 12/08/18 08:04 Resp 20 12/08/18 08:04 BP 132/70 12/08/18 08:04 Pulse Ox 97 12/08/18 08:04 - Labs Result Diagrams: 12/08/18 03:51 12/08/18 03:51 Labs: Laboratory Results - last 24 hr 12/08/18 12/08/18 12/08/18 03:47 03:51 03:51 WBC 13.7 H D RBC 4.56 Hgb 12.9 Hct 38.8 MCV 85.1 MCH 28.4 MCHC 33.3 RDW 15.3 H Plt Count 154 MPV 9.9 Neut % (Auto) 81.2 H Lymph % (Auto) 10.7 L [place] % (Auto) 6.7 Eos % (Auto) 1.0 Baso % (Auto) 0.4 Neut # (Auto) 11.1 H Lymph # (Auto) 1.5 [place] # (Auto) 0.9 H Eos # (Auto) 0.1 Baso # (Auto) 0.1 PT INR APTT Sodium 138 Potassium 3.5 L Chloride 96 L Carbon Dioxide 27 Anion Gap 19 BUN 21 H Creatinine 1.3 H Est GFR ( Amer) 47 Est GFR (Non-Af Amer) 39 Random Glucose 227 H Calcium 9.3 Blood Type O POSITIVE Blood Type Confirm Antibody Screen Negative Crossmatch See Detail BBK History Checked No verified bt 12/08/18 12/08/18 09:50 09:58 WBC RBC Hgb Hct MCV MCH MCHC RDW Plt Count MPV Neut % (Auto) Lymph % (Auto) [place] % (Auto) Eos % (Auto) Baso % (Auto) Neut # (Auto) Lymph # (Auto) [place] # (Auto) Eos # (Auto) Baso # (Auto) PT 11.6 INR 1.0 APTT 31.4 Sodium Potassium Chloride Carbon Dioxide Anion Gap BUN Creatinine Est GFR ( Amer) Est GFR (Non-Af Amer) Random Glucose Calcium Blood Type Blood Type Confirm O POSITIVE Antibody Screen Crossmatch BBK History Checked Assessment & Plan - Assessment and Plan (Free Text) Assessment: EKG NSR no acute changes Hemodynamically stable ECHO 09/12 Normal LVEF, Mod AI, No pulmonary htn Pt at acceptable risk for repair of lower extremity fracture No unstable cardiac symptoms Would follow CBC closely postop/ renal function
--- NOTE | 2018-12-08 13:07 | CT ---
Date of service: 12/08/2018 PROCEDURE: CT HEAD WITHOUT CONTRAST. HISTORY: frequent falls COMPARISON: 09/18/2018 TECHNIQUE: Axial computed tomography images were obtained through the head/brain without intravenous contrast. Radiation dose: Total exam DLP = 805.62 mGy-cm. This CT exam was performed using one or more of the following dose reduction techniques: Automated exposure control, adjustment of the mA and/or kV according to patient size, and/or use of iterative reconstruction technique. FINDINGS: HEMORRHAGE: No intracranial hemorrhage. BRAIN: No mass effect or edema. 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 Moderate volume loss is again noted. Moderate chronic microvascular white matter ischemic changes are again noted. VENTRICLES: Unremarkable. No hydrocephalus. CALVARIUM: Unremarkable. PARANASAL SINUSES: Unremarkable as visualized. No significant inflammatory changes. MASTOID AIR CELLS: Unremarkable as visualized. No inflammatory changes. OTHER FINDINGS: None. IMPRESSION: No evidence of acute intracranial hemorrhage mass effect or midline shift. No significant interval changes noted since the prior study.
[2018-12-08 15:01] LABS: SQUAMOUS EPITHIAL 2 /hpf (0-5); URINE BACTERIA RARE (<OCC); URINE BILIRUBIN NEGATIVE (NEGATIVE); URINE CLARITY CLEAR (Clear); URINE COLOR YELLOW (YELLOW); URINE GLUCOSE (UA) >=500 mg/dL (NEGATIVE); URINE LEUKOCYTE ESTERASE NEG Leu/uL (Negative); URINE PROTEIN 30 mg/dL (NEGATIVE); URINE UROBILINOGEN 0.2-1.0 mg/dL (0.2-1.0)
[2018-12-08 15:09] LABS: URINE BLOOD TRACE (NEGATIVE)
[2018-12-08] MEDS: Insulin Regular 100 units/ml SC SCH ×2 (17:11→21:53)
[2018-12-08] MEDS: GlipiZIDE 10 mg SR Tab PO SCH (17:12)
--- NOTE | 2018-12-08 19:11 | CP.PCM.HP ---
History of Present Illness - History of Present Illness History of Present Illness: 88 yo admitted for R Hip Fx Present on Admission - Present on Admission Any Indicators Present on Admission: No Past Patient History - Past Medical History & Family History Past Medical History?: Yes Past Family History: Reviewed and not pertinent - Past Social History Smoking Status: Current Some Days Smoker - CARDIAC Hx Hypercholesterolemia: Yes Hx Hypertension: Yes - PULMONARY Hx Respiratory Disorders: No - NEUROLOGICAL Hx Neurological Disorder: No - HEENT Hx HEENT Problems: Yes (glaucoma) - RENAL Hx Chronic Kidney Disease: No Hx Kidney Stones: Yes - ENDOCRINE/METABOLIC Hx Endocrine Disorders: Yes (dm2) - HEMATOLOGICAL/ONCOLOGICAL Hx Human Immunodeficiency Virus (HIV): No - INTEGUMENTARY Hx Dermatological Problems: No - MUSCULOSKELETAL/RHEUMATOLOGICAL Hx Musculoskeletal Disorders: No Hx Falls: Yes - GASTROINTESTINAL Hx Gastrointestinal Disorders: No - GENITOURINARY/GYNECOLOGICAL Hx Genitourinary Disorders: No - PSYCHIATRIC Hx Psychophysiologic Disorder: No Hx Substance Use: No - SURGICAL HISTORY Hx Hysterectomy: Yes - ANESTHESIA Hx Anesthesia: Yes Hx Anesthesia Reactions: No Hx Malignant Hyperthermia: No Meds Allergies/Adverse Reactions: Allergies Allergy/AdvReac Type Severity Reaction Status Date / Time lactose Allergy VOMITING Verified 12/08/18 02:39 Physical Exam - Respiratory Exam Respiratory Exam: NORMAL BREATHING PATTERN - Cardiovascular Exam Cardiovascular Exam: REGULAR RHYTHM - GI/Abdominal Exam GI & Abdominal Exam: Normal Bowel Sounds Results - Vital Signs Recent Vital Signs: Last Vital Signs Temp 99 F 12/08/18 16:24 Pulse 81 12/08/18 16:24 Resp 20 12/08/18 16:24 BP 101/58 L 12/08/18 18:24 Pulse Ox 94 L 12/08/18 16:24 - Labs Result Diagrams: 12/12/18 06:10 12/12/18 06:10 Labs: Laboratory Results - last 24 hr 12/08/18 12/08/18 12/08/18 03:47 03:51 03:51 WBC 13.7 H D RBC 4.56 Hgb 12.9 Hct 38.8 MCV 85.1 MCH 28.4 MCHC 33.3 RDW 15.3 H Plt Count 154 MPV 9.9 Neut % (Auto) 81.2 H Lymph % (Auto) 10.7 L [place] % (Auto) 6.7 Eos % (Auto) 1.0 Baso % (Auto) 0.4 Neut # (Auto) 11.1 H Lymph # (Auto) 1.5 [place] # (Auto) 0.9 H Eos # (Auto) 0.1 Baso # (Auto) 0.1 PT INR APTT Sodium 138 Potassium 3.5 L Chloride 96 L Carbon Dioxide 27 Anion Gap 19 BUN 21 H Creatinine 1.3 H Est GFR ( Amer) 47 Est GFR (Non-Af Amer) 39 POC Glucose (mg/dL) Random Glucose 227 H Hemoglobin A1c Calcium 9.3 Urine Color Urine Clarity Urine pH Ur Specific [place] Urine Protein Urine Glucose (UA) Urine Ketones Urine Blood Urine Nitrate Urine Bilirubin Urine Urobilinogen Ur Leukocyte Esterase Urine RBC (Auto) Urine Microscopic WBC Ur Squamous Epith Cells Urine Bacteria Blood Type O POSITIVE Blood Type Confirm Antibody Screen Negative Crossmatch See Detail BBK History Checked No verified bt 12/08/18 12/08/18 12/08/18 09:50 09:58 09:58 WBC RBC Hgb Hct MCV MCH MCHC RDW Plt Count MPV Neut % (Auto) Lymph % (Auto) [place] % (Auto) Eos % (Auto) Baso % (Auto) Neut # (Auto) Lymph # (Auto) [place] # (Auto) Eos # (Auto) Baso # (Auto) PT 11.6 INR 1.0 APTT 31.4 Sodium Potassium Chloride Carbon Dioxide Anion Gap BUN Creatinine Est GFR ( Amer) Est GFR (Non-Af Amer) POC Glucose (mg/dL) Random Glucose Hemoglobin A1c 8.0 H Calcium Urine Color Urine Clarity Urine pH Ur Specific [place] Urine Protein Urine Glucose (UA) Urine Ketones Urine Blood Urine Nitrate Urine Bilirubin Urine Urobilinogen Ur Leukocyte Esterase Urine RBC (Auto) Urine Microscopic WBC Ur Squamous Epith Cells Urine Bacteria Blood Type Blood Type Confirm O POSITIVE Antibody Screen Crossmatch BBK History Checked 12/08/18 12/08/18 12/08/18 12:49 14:55 17:10 WBC RBC Hgb Hct MCV MCH MCHC RDW Plt Count MPV Neut % (Auto) Lymph % (Auto) [place] % (Auto) Eos % (Auto) Baso % (Auto) Neut # (Auto) Lymph # (Auto) [place] # (Auto) Eos # (Auto) Baso # (Auto) PT INR APTT Sodium Potassium Chloride Carbon Dioxide Anion Gap BUN Creatinine Est GFR ( Amer) Est GFR (Non-Af Amer) POC Glucose (mg/dL) 301 H 303 H Random Glucose Hemoglobin A1c Calcium Urine Color Yellow Urine Clarity Clear Urine pH 6.0 Ur Specific [place] 1.012 Urine Protein 30 Urine Glucose (UA) >=500 Urine Ketones Negative Urine Blood Trace Urine Nitrate Negative Urine Bilirubin Negative Urine Urobilinogen 0.2-1.0 Ur Leukocyte Esterase Neg Urine RBC (Auto) 3 Urine Microscopic WBC 2 Ur Squamous Epith Cells 2 Urine Bacteria Rare Blood Type Blood Type Confirm Antibody Screen Crossmatch BBK History Checked Assessment & Plan - Assessment and Plan (Free Text) Assessment: R Hip intertrochanteric Fx Ortho ORIF Recurrent falls mechanical Unsteady gait/ imbalance Neurology Cardiology NIDDM Endo Hx Urinary retention UTI Hx Incontinence Hx Dysthymia?? - Date & Time Date: 12/08/18 Time: :
[2018-12-08] MEDS: Latanoprost 0.005% Opht SOUTION OU SCH (21:54)
[2018-12-08] MEDS: Insulin Detemir 100 Units/ml Inj SC SCH (21:56)
[2018-12-08] MEDS ORDERED: Latanoprost 0.005% Opht SOUTION OU SCH (22:00)
--- NOTE | 2018-12-08 23:09 | CON ---
DATE: 12/08/2018 ENDOCRINOLOGY CONSULTATION LOCATION: Room 667. HISTORY OF PRESENT ILLNESS: This is an 88-year-old female with a known history of type 2 diabetes and hypertension, presenting here with sudden onset of right lower extremity pain and paresthesias and is now being referred for diabetic evaluation and management. PAST MEDICAL HISTORY: As mentioned above, history of type 2 diabetes, on Prandin given as 2 mg t.i.d., history of hypertension and dyslipidemia, and history of nephrolithiasis. FAMILY HISTORY: Positive for hypertension and heart disease. SOCIAL HISTORY: The patient has a supportive family. No known substance use. REVIEW OF SYSTEMS: As mentioned above, admits to sudden onset of generalized body weakness with bifrontal headaches and episodic bouts of dizziness and lightheadedness with an accidental fall at home with apparent injury in the right hip area. No chest pains or palpitations or PND. Her oral intake has been variable with nausea and dyspepsia and vague upper abdominal pains. No recent alterations of bowel and urinary patterns. PHYSICAL EXAMINATION: GENERAL: An average-built female in no apparent distress. VITAL SIGNS: Blood pressure of 140/70, pulse of 80 beats per minute and regular, temperature 98, and respirations 20. Height is 5 feet and weight is 110 pounds. HEENT: Head normocephalic. Eyes anicteric with pink conjunctivae. Funduscopy is not possible at this time. Ears, nose and throat otherwise normal. NECK: Supple. Thyroid gland is normal in size. No carotid bruits or cervical adenopathy. CARDIOPULMONARY: Some adynamic precordium. S1 and S2, rapid and regular. LUNGS: Clear to auscultation. ABDOMEN: Flat and soft with positive bowel sounds. EXTREMITIES: No peripheral edema. Pulses are +2 bilaterally. LABORATORY DATA: Her chemistries, BUN of 21, sodium 138, potassium 3.5, chloride 96, CO2 of 27, glucose 227 and creatinine 1.3. ASSESSMENT: This is an 88-year-old female with uncontrolled type 2 diabetes with recent hyperglycemic accelerations and is now being referred for diabetic evaluation and management. She had an accidental fall at home with right hip and lower extremity pain and paresthesias as noted and is undergoing neurological workup at this time. PLAN OF MANAGEMENT: We will modify the coverage scale with the low-dose algorithm using regular insulin to obviate hypoglycemia and detailed orders have been given. We will increase the glipizide to 10 mg b.i.d. before meals as ordered. We will continue also the Prandin given as 2 mg t.i.d. with meals as ordered. We will obtain serial chemistries and supplement accordingly as needed. We will also obtain a hemoglobin A1c to confirm her prior glycemic control and baseline thyroid function studies will be ordered. We will follow and advise accordingly. Kerri Bacon MD
[2018-12-08] MEDS ORDERED: Sodium Chloride 0.45% 1,000 ML IV SCH (23:35)
[2018-12-09] MEDS: Bethanechol 50 MG TAB PO SCH ×3 (01:48→17:32)
[2018-12-09 07:22] LABS: HEMOGLOBIN 11.6 g/dL (12.0-16.0); MEAN CELL VOLUME 84.5 fl (81.0-99.0); MEAN CORPUSCULAR HEMOGLOBIN 28.8 pg (27.0-31.0); MEAN CORPUSCULAR HGB CONC 34.1 g/dL (33.0-37.0); RBC 4.02 Mil/uL (3.80-5.20); RED CELL DISTRIBUTION WIDTH 15.5 % (11.5-14.5); WHITE BLOOD COUNT 7.8 K/uL (4.8-10.8)
[2018-12-09 07:41] LABS: CALCIUM 8.7 mg/dL (8.4-10.2)
[2018-12-09] MEDS: Insulin Regular 100 units/ml SC SCH ×4 (08:11→21:32)
[2018-12-09] MEDS: GlipiZIDE 10 mg SR Tab PO SCH ×2 (08:11→17:28)
[2018-12-09] MEDS ORDERED: Rocuronium 10 mg/ml (5 ml) ONE (09:39)
[2018-12-09] MEDS ORDERED: Etomidate 20 mg/10ml Inj IV ONE (09:39)
[2018-12-09] MEDS ORDERED: Succinylcholine 200 mg/10 ml Inj IV ONE (09:39)
[2018-12-09] MEDS ORDERED: Phenylephrine 10 mg/ml Inj ONE (09:41)
[2018-12-09] MEDS ORDERED: Bupivacaine HCl 0.5% PF (10 ml) Inj ONE (09:56)
[2018-12-09] MEDS ORDERED: Morphine 5 mg/10 ml preservative-free Inj(Duramorph) ONE (10:28)
[2018-12-09] MEDS ORDERED: ePHEDrine 50 mg/ml Inj ONE (11:05)
[2018-12-09] MEDS ORDERED: Sevoflurane - Inhalation Anesthetic Liq (250 ml) ONE (11:21)
[2018-12-09] MEDS ORDERED: Neostigmine 1:1000 (1 mg/ml) Inj ONE (11:44)
[2018-12-09] MEDS ORDERED: Lactated Ringer's 1,000 ML IV ONE ×2 (11:45)
--- NOTE | 2018-12-09 11:48 | PN ---
DATE: 12/09/2018 ENDOCRINOLOGY FOLLOWUP NOTE LOCATION: In room 667. SUBJECTIVE: This is an 88-year-old female with known history of type 2 diabetes, hypertension, sustaining an accidental fall at home with a subsequent hip injury in right and developed right hip intertrochanteric fracture as noted. Her glycemic levels are fluctuating, but improved, and the glucose values have ranged from 147-223 mg per dL. However, it was 301-303 yesterday as noted. Her hemoglobin A1c is 8% which is elevated and indicative of suboptimal metabolic control of her diabetic condition even prior to this admission. Her chemistries today showed a BUN of 23, sodium 136, potassium 3.7, chloride 100, CO2 of 27, glucose 156, and creatinine 1.5. ASSESSMENT: This is an 88-year-old female with uncontrolled and decompensated type 2 insulin-requiring diabetes with a recent right hip fracture and sustained an intertrochanteric hip fracture and will be undergoing surgery today as noted. She may be also developing secondary pancreatic failure with insulin therapy imperative to optimize her metabolic control. This was confirmed with the very mid elevated A1c levels as noted. PLAN OF MANAGEMENT: We will continue the modified basal insulin given at a higher dose of Levemir at 14 units subcu at bedtime daily as ordered. We will also continue the glipizide given as 10 mg b.i.d. before meals with Prandin given as 2 mg t.i.d. with meals as ordered. We will continue the low-dose correction scale using Humalog insulin as ordered. Moreover, we will obtain serial chemistries and supplement accordingly as needed. The patient is scheduled for open reduction and internal fixation procedure of the right hip today as scheduled. We will follow. Kerri Bacon MD
[2018-12-09] MEDS: Lactated Ringer's 1,000 ML IV SCH (13:59)
--- NOTE | 2018-12-09 21:09 | OP ---
PROCEDURE DATE: 12/09/2018 PREOPERATIVE DIAGNOSIS: Displaced right hip intertrochanteric fracture. POSTOPERATIVE DIAGNOSIS: Displaced right hip intertrochanteric fracture. PROCEDURE: Right hip intertrochanteric fracture reduction and intramedullary nail fixation, small Synthes TFN nail. SURGEON: Kal Calles MD TYPE OF ANESTHESIA: Spinal and general. ESTIMATED BLOOD LOSS: 20 mL. COMPLICATIONS: None. DISPOSITION: Stable to recovery room. DESCRIPTION OF PROCEDURE: The patient was brought to the operating room and placed supine on the operating room table. After general anesthesia and spinal was given, the right lower extremity was then placed into traction. Under fluoroscopic images, closed reduction of the fracture was performed. This included retraction, internal rotation, and adduction. Fluoroscopic images confirmed anatomic reduction of the fracture. The right lower extremity was prepped and draped in standard surgical fashion. A 4 cm incision was outlined proximal to the greater trochanter. Incision was made through skin only. All superficial veins were cauterized. Dissection was carried down to the IT band, which was incised. The starting point over the greater trochanter was identified with a guidewire and confirmed on fluoroscopic images. The guidewire was advanced into the intramedullary canal. Next, an opening reamer was used to ream over the guidewire. Next, short TFN nail with aiming guide was assembled and advanced over the guidewire into the intramedullary canal. Nail was seated in appropriate length. Next, work was begun on locking the nail into the femoral neck. A trocar was advanced over the aiming guide. Incision was made over the trocar. The trocar was then advanced into lateral femoral cortex. Guidewire was then advanced into the femoral neck and confirmed in good position on both AP, lateral, and oblique fluoroscopic images. Appropriate-size helical blade was then selected. The femoral neck was reamed to appropriate length and the helical blade was then advanced over the guidewire until fully seated. The blade was of appropriate length in tip to apex distance without penetrating the joint. The blade was locked proximally to the nail with flexible screwdriver. Next, work was began on locking the nail distally. Trocar was advanced into the aiming guide, incision was made over the skin and the trocar was advanced to the lateral femoral cortex. Bicortical drill was used for the distal locking hole. Appropriate-length screws were selected and advanced into the distal locking hole, locking the nail distally. The aiming guide and trocars were then removed. Final fluoroscopic images confirmed well-aligned anatomic reduced intratrochanteric fracture with good placement of nail with no abnormal hardware displacement or intraarticular placement. The wounds were then copiously irrigated and closed with 0 Vicryl for deep layers followed by 2-0 Vicryl, followed by wellington for skin. Sterile dressings were applied with Aquacel dressing. Traction was removed. The patient was extubated and returned to recovery room in excellent condition. Kal Calles MD HARIKA
[2018-12-09] MEDS: Latanoprost 0.005% Opht SOUTION OU SCH (21:24)
[2018-12-09] MEDS: Insulin Detemir 100 Units/ml Inj SC SCH (21:34)
[2018-12-10] MEDS: Bethanechol 50 MG TAB PO SCH ×3 (00:32→16:34)
[2018-12-10] MEDS: Lactated Ringer's 1,000 ML IV SCH ×2 (00:34→08:52)
[2018-12-10 06:51] LABS: HEMOGLOBIN 9.8 g/dL (12.0-16.0); MEAN CELL VOLUME 85.1 fl (81.0-99.0); MEAN CORPUSCULAR HGB CONC 34.1 g/dL (33.0-37.0); RBC 3.39 Mil/uL (3.80-5.20); WHITE BLOOD COUNT 7.9 K/uL (4.8-10.8)
[2018-12-10 07:05] LABS: ALB/GLOB RATIO 1.2 (1.0-2.1); CALCIUM 8.1 mg/dL (8.4-10.2)
[2018-12-10] MEDS: Insulin Regular 100 units/ml SC SCH ×4 (08:49→21:35)
[2018-12-10] MEDS: GlipiZIDE 10 mg SR Tab PO SCH ×2 (08:50→16:26)
--- NOTE | 2018-12-10 14:39 | PN ---
DATE: 12/10/2018 LOCATION: Room 667. SUBJECTIVE: This is an 88-year-old female with recent accidental fall at home and sustained a right hip fracture and underwent a right hip pinning with trochanteric nail insertion as noted yesterday. Her glycemic levels are fluctuating but improved and the glucose values have ranged from 208 to 230 mg/dL. It was 304 at bedtime last night. Her chemistries today showed a BUN of 21, sodium 134, potassium 4, chloride 98, CO2 of 21, glucose 197, and creatinine 1.2. ASSESSMENT: This is an 88-year-old female with uncontrolled and decompensated type 2 insulin-requiring diabetes with transient hyperglycemic accelerations related to the recent physical stressors and increased insulin resistance thereof. PLAN OF MANAGEMENT: We will modify her current basal insulin and increase the Levemir to 18 units subcu at bedtime daily to start tonight. We will continue the low-dose correction scale using Humalog insulin as given. We will obtain serial chemistries and supplement accordingly as needed. We will consider the addition of oral hypoglycemic drug therapy to optimize metabolic control. In the meantime, we will continue her glipizide given as 10 mg b.i.d. before meals as ordered with Prandin given as 2 mg t.i.d. with meals as given. We will obtain serial chemistries and supplement accordingly as needed. We will follow up. Kerri Bacon MD
--- NOTE | 2018-12-10 14:53 | RAD ---
Date of service: 12/09/2018 PROCEDURE: Two views right hip HISTORY: orif of the right hip COMPARISON: 12/08/2018 TECHNIQUE: Two views right hip FINDINGS: Status post ORIF right intertrochanteric fracture. Fracture fragments are in near anatomic alignment. No additional fracture identified. No dislocation. Joint spaces and articular surfaces are preserved. IMPRESSION: Status post ORIF right intertrochanteric fracture
--- NOTE | 2018-12-10 17:17 | RAD ---
Date of service: 12/09/2018 PROCEDURE: Intraoperative fluoroscopy HISTORY: FLUOROSCOPY COMPARISON: Not available TECHNIQUE: Intraoperative fluoroscopy was provided during ORIF of a right intertrochanteric hip fracture. Total time of fluoroscopy was 58.3 sec. Cumulative dose was 6.48 mGy. FINDINGS: Multiple fluoroscopic spot films are submitted demonstrating progressive stages of the internal fixation. IMPRESSION: Fluoroscopy provided.
[2018-12-10] MEDS ORDERED: Lactated Ringer's 1,000 ML IV SCH (18:00)
[2018-12-10] MEDS: Latanoprost 0.005% Opht SOUTION OU SCH (21:18)
[2018-12-10] MEDS ORDERED: Insulin Detemir 100 Units/ml Inj SC SCH (22:00)
--- NOTE | 2018-12-10 23:21 | CP.PCM.PN ---
Subjective - Date & Time of Evaluation Date of Evaluation: 12/10/18 Time of Evaluation: 22:22 - Subjective Subjective: Afebrile Multiple calls to staff with extended discussion today and yesterday Objective - Vital Signs/Intake and Output Vital Signs (last 24 hours): Temp Pulse Resp BP Pulse Ox 98.6 F 90 19 96/51 L 95 12/10/18 16:41 12/10/18 16:41 12/10/18 16:41 12/10/18 16:41 12/10/18 16:41 Intake and Output: 12/10/18 12/11/18 18:59 06:59 Output Total 500 Balance -500 - Medications Medications: Current Medications Acetaminophen (Tylenol 325mg Tab) 650 mg PO Q6 [facility] Last Admin: 12/10/18 21:16 Dose: 650 mg Artificial Tears (Artificial Tears) 1 drop OU RQ4 PRN PRN Reason: Dry eyes Atorvastatin Calcium (Lipitor) 10 mg PO DAILY [facility] Last Admin: 12/10/18 08:52 Dose: 10 mg Bethanechol Chloride (Urecholine) 50 mg PO Q8H [facility] Last Admin: 12/10/18 16:34 Dose: 50 mg Enalapril Maleate (Vasotec) 20 mg PO DAILY [facility] Last Admin: 12/10/18 09:15 Dose: 20 mg Fluticasone Propionate (Flonase) 2 spr MARY DAILY [facility] Last Admin: 12/10/18 09:07 Dose: 2 spr Glipizide (Glucotrol Xl) 10 mg PO ACBD [facility] Last Admin: 12/10/18 16:26 Dose: 10 mg Haloperidol Lactate (Haldol) 0.25 mg PO Q8 PRN PRN Reason: Agitation Last Admin: 12/10/18 21:29 Dose: 0.25 mg Heparin Sodium (Porcine) (Heparin) 5,000 units SC Q8@0400,1200,2000 [facility]; Protocol Last Admin: 12/10/18 20:17 Dose: 5,000 units Hydrochlorothiazide (Hydrodiuril) 25 mg PO DAILY [facility] Last Admin: 12/10/18 08:52 Dose: Not Given Lactated Ringer's (Lactated Ringer's) 1,000 mls @ 60 mls/hr IV .[id number] [facility] Last Admin: 12/10/18 18:00 Dose: 60 mls/hr Insulin Detemir (Levemir) 18 units SC HS [facility] Last Admin: 12/10/18 21:36 Dose: 18 units Insulin Human Regular (Humulin R) 0 units SC [facility]; Protocol Last Admin: 12/10/18 21:35 Dose: Not Given Latanoprost (Xalatan Opht) 1 drop OU HS [facility] Last Admin: 12/10/18 21:18 Dose: 1 drop Morphine Sulfate (Morphine) 1 mg IVP Q4 PRN PRN Reason: Pain, moderate (4-7) Ondansetron HCl (Zofran Inj) 2 mg IVP Q6 PRN PRN Reason: Nausea/Vomiting Last Admin: 12/09/18 18:29 Dose: 2 mg Repaglinide (Prandin) 2 mg PO TIDWM [facility] Last Admin: 12/10/18 16:26 Dose: 2 mg Tramadol HCl (Ultram) 50 mg PO Q4 PRN PRN Reason: Pain, severe (8-10) Last Admin: 12/10/18 18:06 Dose: 50 mg - Labs Labs: 12/10/18 05:25 12/10/18 05:25 PT 11.6 Seconds (9.8-13.1) 12/08/18 09:58 INR 1.0 12/08/18 09:58 APTT 31.4 Seconds (25.6-37.1) 12/08/18 09:58 - Respiratory Exam Respiratory Exam: NORMAL BREATHING PATTERN - Cardiovascular Exam Cardiovascular Exam: REGULAR RHYTHM - GI/Abdominal Exam GI & Abdominal Exam: Normal Bowel Sounds Assessment and Plan - Assessment and Plan (Free Text) Assessment: R Hip intertrochanteric Fx S/P ORIF POD #1 Ortho DVT prophylaxis Incentive spirometry Recurrent falls mechanical Unsteady gait/ imbalance Neurology Cardiology NIDDM Endo Hx Urinary retention UTI Hx Incontinence Hx Dysthymia??
[2018-12-11] MEDS: Lactated Ringer's 1,000 ML IV SCH (01:39)
[2018-12-11] MEDS: Bethanechol 50 MG TAB PO SCH ×3 (01:40→17:45)
[2018-12-11] MEDS: Insulin Regular 100 units/ml SC SCH ×2 (06:30→13:00)
[2018-12-11 06:46] LABS: MEAN CELL VOLUME 85.1 fl (81.0-99.0); MEAN CORPUSCULAR HEMOGLOBIN 28.7 pg (27.0-31.0); MEAN CORPUSCULAR HGB CONC 33.8 g/dL (33.0-37.0); RBC 3.12 Mil/uL (3.80-5.20); RED CELL DISTRIBUTION WIDTH 14.9 % (11.5-14.5); WHITE BLOOD COUNT 6.7 K/uL (4.8-10.8)
[2018-12-11 06:56] LABS: ALB/GLOB RATIO 1.2 (1.0-2.1); ALBUMIN 2.9 g/dL (3.5-5.0); CALCIUM 8.2 mg/dL (8.4-10.2)
[2018-12-11] MEDS: GlipiZIDE 10 mg SR Tab PO SCH ×2 (09:21→17:45)
--- NOTE | 2018-12-11 09:46 | CP.PCM.PN ---
Subjective - Date & Time of Evaluation Date of Evaluation: 12/11/18 Time of Evaluation: 09:42 - Subjective Subjective: Ortho f/u, patient seen and examined with Dr. Calles Patient with at bedside, patient complaining of hip pain. No new complaints. Objective - Vital Signs/Intake and Output Vital Signs (last 24 hours): Temp Pulse Resp BP Pulse Ox 98.0 F 68 20 114/65 97 12/11/18 08:04 12/11/18 08:04 12/11/18 08:04 12/11/18 08:04 12/11/18 08:04 - Medications Medications: Current Medications Acetaminophen (Tylenol 325mg Tab) 650 mg PO Q6 [facility] Last Admin: 12/11/18 09:28 Dose: 650 mg Artificial Tears (Artificial Tears) 1 drop OU RQ4 PRN PRN Reason: Dry eyes Atorvastatin Calcium (Lipitor) 10 mg PO DAILY [facility] Last Admin: 12/11/18 09:21 Dose: 10 mg Bethanechol Chloride (Urecholine) 50 mg PO Q8H [facility] Last Admin: 12/11/18 09:20 Dose: 50 mg Enalapril Maleate (Vasotec) 20 mg PO DAILY [facility] Last Admin: 12/11/18 09:20 Dose: 20 mg Fluticasone Propionate (Flonase) 2 spr MARY DAILY [facility] Last Admin: 12/11/18 09:20 Dose: 2 spr Glipizide (Glucotrol Xl) 10 mg PO ACBD [facility] Last Admin: 12/11/18 09:21 Dose: 10 mg Haloperidol Lactate (Haldol) 0.25 mg PO Q8 PRN PRN Reason: Agitation Last Admin: 12/10/18 21:29 Dose: 0.25 mg Heparin Sodium (Porcine) (Heparin) 5,000 units SC Q8@0400,1200,2000 [facility]; Lea col Last Admin: 12/11/18 04:39 Dose: 5,000 units Hydrochlorothiazide (Hydrodiuril) 25 mg PO DAILY [facility] Last Admin: 12/11/18 09:22 Dose: 25 mg Lactated Ringer's (Lactated Ringer's) 1,000 mls @ 30 mls/hr IV .Q24H [facility] Last Admin: 12/11/18 01:39 Dose: 30 mls/hr Insulin Detemir (Levemir) 18 units SC HS [facility] Last Admin: 12/10/18 21:36 Dose: 18 units Insulin Human Regular (Humulin R) 0 units SC ACHS [facility]; Protocol Last Admin: 12/11/18 06:30 Dose: Not Given Latanoprost (Xalatan Opht) 1 drop OU HS [facility] Last Admin: 12/10/18 21:18 Dose: 1 drop Morphine Sulfate (Morphine) 1 mg IVP Q4 PRN PRN Reason: Pain, moderate (4-7) Last Admin: 12/11/18 06:27 Dose: 1 mg Ondansetron HCl (Zofran Inj) 2 mg IVP Q6 PRN PRN Reason: Nausea/Vomiting Last Admin: 12/09/18 18:29 Dose: 2 mg Repaglinide (Prandin) 2 mg PO TIDWM [facility] Last Admin: 12/11/18 09:21 Dose: 2 mg Tramadol HCl (Ultram) 50 mg PO Q4 PRN PRN Reason: Pain, severe (8-10) Last Admin: 12/10/18 18:06 Dose: 50 mg - Labs Labs: 12/11/18 05:50 12/11/18 05:50 PT 11.6 Seconds (9.8-13.1) 12/08/18 09:58 INR 1.0 12/08/18 09:58 APTT 31.4 Seconds (25.6-37.1) 12/08/18 09:58 - Extremities Exam Additional comments: right hip: thigh soft, mild ecchymosis, dressing intact, scant sang drainage +ROM ankle/toes, sensation intact +DP/PT pulses calves soft NT neg homans Assessment and Plan (1) Closed intertrochanteric fracture of right femur Assessment & Plan: POD#2 s/p ORIF right IT fracture -PT/OT -VTE proph on heparin , SCD -d/c planning -ortho stable -d/w Dr. Calles, agrees with above Status: Acute (2) Acute blood loss anemia Assessment & Plan: VSS, monitor Status: Acute
[2018-12-11] MEDS ORDERED: Potassium Chloride 20 mEq ER Tab PO ONE (10:38)
--- NOTE | 2018-12-11 11:09 | CP.PCM.PCO ---
Physician Communication Note - Physician Communication Note Physician Communication Note: Neuro Sign Off
[2018-12-11] MEDS: Insulin Lispro (humaLOG) 100 Units/ml Inj SC SCH ×3 (17:49→21:28)
--- NOTE | 2018-12-11 20:28 | CP.PCM.PN ---
Subjective - Date & Time of Evaluation Date of Evaluation: 12/11/18 Time of Evaluation: 22:22 - Subjective Subjective: Above noted Afebrile Objective - Vital Signs/Intake and Output Vital Signs (last 24 hours): Temp Pulse Resp BP Pulse Ox 98 F 104 H 20 114/67 95 12/11/18 17:00 12/11/18 17:00 12/11/18 17:00 12/11/18 17:00 12/11/18 17:00 - Medications Medications: Current Medications Acetaminophen (Tylenol 325mg Tab) 650 mg PO Q6 [facility] Last Admin: 12/11/18 16:00 Dose: Not Given Artificial Tears (Artificial Tears) 1 drop OU RQ4 PRN PRN Reason: Dry eyes Atorvastatin Calcium (Lipitor) 10 mg PO DAILY [facility] Last Admin: 12/11/18 09:21 Dose: 10 mg Bethanechol Chloride (Urecholine) 50 mg PO Q8H [facility] Last Admin: 12/11/18 17:45 Dose: 50 mg Enalapril Maleate (Vasotec) 20 mg PO DAILY [facility] Last Admin: 12/11/18 09:20 Dose: 20 mg Fluticasone Propionate (Flonase) 2 spr MARY DAILY [facility] Last Admin: 12/11/18 09:20 Dose: 2 spr Glipizide (Glucotrol Xl) 10 mg PO ACBD [facility] Last Admin: 12/11/18 17:45 Dose: 10 mg Heparin Sodium (Porcine) (Heparin) 5,000 units SC Q8@0400,1200,2000 [facility]; Protocol Last Admin: 12/11/18 12:14 Dose: 5,000 units Hydrochlorothiazide (Hydrodiuril) 25 mg PO DAILY [facility] Last Admin: 12/11/18 09:22 Dose: 25 mg Lactated Ringer's (Lactated Ringer's) 1,000 mls @ 30 mls/hr IV .Q24H [facility] Last Admin: 12/11/18 01:39 Dose: 30 mls/hr Insulin Detemir (Levemir) 24 units SC HS [facility] Insulin Human Lispro (Humalog) 6 units SC AC [facility] Last Admin: 12/11/18 17:50 Dose: 6 unit Insulin Human Lispro (Humalog) 0 units SC ACHS [facility] Last Admin: 12/11/18 17:49 Dose: 2 unit Latanoprost (Xalatan Opht) 1 drop OU HS [facility] Last Admin: 12/10/18 21:18 Dose: 1 drop Morphine Sulfate (Morphine) 1 mg IVP Q4 PRN PRN Reason: Pain, moderate (4-7) Last Admin: 12/11/18 20:21 Dose: 1 mg Ondansetron HCl (Zofran Inj) 2 mg IVP Q6 PRN PRN Reason: Nausea/Vomiting Last Admin: 12/09/18 18:29 Dose: 2 mg Repaglinide (Prandin) 2 mg PO TIDWM [facility] Last Admin: 12/11/18 17:45 Dose: 2 mg Tramadol HCl (Ultram) 50 mg PO Q4 PRN PRN Reason: Pain, severe (8-10) Last Admin: 12/11/18 10:07 Dose: 50 mg - Labs Labs: 12/11/18 05:50 12/11/18 05:50 PT 11.6 Seconds (9.8-13.1) 12/08/18 09:58 INR 1.0 12/08/18 09:58 APTT 31.4 Seconds (25.6-37.1) 12/08/18 09:58 - Respiratory Exam Respiratory Exam: NORMAL BREATHING PATTERN - Cardiovascular Exam Cardiovascular Exam: REGULAR RHYTHM - GI/Abdominal Exam GI & Abdominal Exam: Normal Bowel Sounds Assessment and Plan - Assessment and Plan (Free Text) Assessment: R Hip intertrochanteric Fx S/P ORIF POD #2 Ortho PT DVT prophylaxis Incentive spirometry Recurrent falls mechanical Unsteady gait/ imbalance Neurology Cardiology NIDDM Endo Hx Urinary retention UTI Hx Incontinence Hx Dysthymia??
--- NOTE | 2018-12-11 20:59 | PN ---
DATE: 12/11/2018 ENDOCRINOLOGY FOLLOWUP NOTE LOCATION: Room 667. SUBJECTIVE: This is an 88-year-old female with recent uncontrolled type 2 insulin-requiring diabetes presenting here with an accidental fall and sustained a right hip fracture and underwent surgical resection as noted thereof. Her glycemic levels are fluctuating also with the variability of her oral intake and the glucose values have ranged from 202-372 and 376 mg/dL. LABORATORY DATA: Her chemistry showed a BUN of 17, sodium 135, potassium 3.4, chloride 100, CO2 of 27, glucose 203 and creatinine 1.2. ASSESSMENT: This is a 88-year-old female with recent uncontrolled type 2 insulin-requiring diabetes presenting here with a right hip injury and subsequent evaluation with an intertrochanteric fracture in the right hip joint and underwent surgical resection and pinning procedure with nail insertion in the same area as noted. Her glycemic levels are fluctuating as expected with the transient increased physical stressors and subsequent increased insulin resistance with further impaired glucose tolerance thereof. PLAN OF MANAGEMENT: We will modify her current insulin regimen and actually start her on a more physiologic basal and bolus insulin drug combination to optimize metabolic control. We will add Humalog given as 6 units t.i.d. before meals to start today as ordered. We will also increase her basal insulin with Levemir to be given as 24 units subcutaneous at bedtime daily to start tonight. We will modify the coverage scale to obviate hypoglycemia and detailed orders have been given. We will obtain serial chemistries and supplement accordingly as needed. We will follow. Kerri Bacon MD
[2018-12-11] MEDS: Insulin Detemir 100 Units/ml Inj SC SCH (21:30)
[2018-12-11] MEDS: Latanoprost 0.005% Opht SOUTION OU SCH (21:31)
[2018-12-12] MEDS: Bethanechol 50 MG TAB PO SCH ×3 (01:35→16:30)
[2018-12-12] MEDS: Lactated Ringer's 1,000 ML IV SCH (04:16)
[2018-12-12 06:24] LABS: HEMOGLOBIN 9.6 g/dL (12.0-16.0); MEAN CELL VOLUME 85.4 fl (81.0-99.0); RBC 3.32 Mil/uL (3.80-5.20); RED CELL DISTRIBUTION WIDTH 15.1 % (11.5-14.5); WHITE BLOOD COUNT 8.4 K/uL (4.8-10.8)
[2018-12-12 06:45] LABS: ALB/GLOB RATIO 1.1 (1.0-2.1); ALBUMIN 3.2 g/dL (3.5-5.0); CALCIUM 8.4 mg/dL (8.4-10.2)
[2018-12-12] MEDS: Insulin Lispro (humaLOG) 100 Units/ml Inj SC SCH ×7 (06:53→21:28)
[2018-12-12] MEDS: GlipiZIDE 10 mg SR Tab PO SCH ×2 (08:51→16:31)
--- NOTE | 2018-12-12 08:51 | CP.PCM.PN ---
Subjective - Date & Time of Evaluation Date of Evaluation: 12/12/18 Time of Evaluation: 08:00 - Subjective Subjective: Patient seen and examined at bedside comfortable. at bedside. Pain is well controlled. No new complaints. Objective - Vital Signs/Intake and Output Vital Signs (last 24 hours): Temp Pulse Resp BP Pulse Ox 98.0 F 85 20 119/68 95 12/12/18 07:49 12/12/18 07:49 12/12/18 07:49 12/12/18 07:49 12/12/18 07:49 - Medications Medications: Current Medications Acetaminophen (Tylenol 325mg Tab) 650 mg PO Q6 [facility] Last Admin: 12/12/18 04:18 Dose: 650 mg Artificial Tears (Artificial Tears) 1 drop OU RQ4 PRN PRN Reason: Dry eyes Atorvastatin Calcium (Lipitor) 10 mg PO DAILY [facility] Last Admin: 12/12/18 08:49 Dose: 10 mg Bethanechol Chloride (Urecholine) 50 mg PO Q8H [facility] Last Admin: 12/12/18 08:49 Dose: 50 mg Enalapril Maleate (Vasotec) 20 mg PO DAILY [facility] Last Admin: 12/11/18 09:20 Dose: 20 mg Fluticasone Propionate (Flonase) 2 spr MARY DAILY [facility] Last Admin: 12/12/18 08:47 Dose: 2 spr Glipizide (Glucotrol Xl) 10 mg PO ACBD [facility] Last Admin: 12/11/18 17:45 Dose: 10 mg Heparin Sodium (Porcine) (Heparin) 5,000 units SC Q8@0400,1200,2000 [facility]; Protocol Last Admin: 12/12/18 04:15 Dose: 5,000 units Hydrochlorothiazide (Hydrodiuril) 25 mg PO DAILY [facility] Last Admin: 12/12/18 08:50 Dose: 25 mg Lactated Ringer's (Lactated Ringer's) 1,000 mls @ 30 mls/hr IV .Q24H [facility] Last Admin: 12/12/18 04:16 Dose: 30 mls/hr Insulin Detemir (Levemir) 24 units SC HS [facility] Last Admin: 12/11/18 21:30 Dose: 24 units Insulin Human Lispro (Humalog) 6 units SC AC [facility] Last Admin: 12/11/18 17:50 Dose: 6 unit Insulin Human Lispro (Humalog) 0 units SC ACHS [facility] Last Admin: 12/12/18 06:53 Dose: Not Given Latanoprost (Xalatan Opht) 1 drop OU HS [facility] Last Admin: 12/11/18 21:31 Dose: 1 drop Morphine Sulfate (Morphine) 1 mg IVP Q4 PRN PRN Reason: Pain, moderate (4-7) Last Admin: 12/11/18 20:21 Dose: 1 mg Ondansetron HCl (Zofran Inj) 2 mg IVP Q6 PRN PRN Reason: Nausea/Vomiting Last Admin: 12/09/18 18:29 Dose: 2 mg Repaglinide (Prandin) 2 mg PO TIDWM [facility] Last Admin: 12/12/18 08:49 Dose: 2 mg Tramadol HCl (Ultram) 50 mg PO Q4 PRN PRN Reason: Pain, severe (8-10) Last Admin: 12/12/18 08:46 Dose: 50 mg - Labs Labs: 12/12/18 06:10 12/12/18 06:10 PT 11.6 Seconds (9.8-13.1) 12/08/18 09:58 INR 1.0 12/08/18 09:58 APTT 31.4 Seconds (25.6-37.1) 12/08/18 09:58 - Extremities Exam Additional comments: RLE: Aquacel dressings CDI mild swelling sensation intact SP/DP/TN motor intact EHL/FHL/TA/G pedal pulse intact calves soft NT b/l Assessment and Plan (1) Closed intertrochanteric fracture of right femur Assessment & Plan: POD#3 s/p R hip short TFN nail fixation -PT/OT WBAT -DVT ppx -vit D supplementation -orthopedically stable for d/c to rehab -above d/w Dr. Calles who agrees Status: Acute
[2018-12-12] MEDS: Cholecalciferol 400 Intl Units Tab PO SCH (11:06)
--- NOTE | 2018-12-12 20:22 | CP.PCM.PN ---
Subjective - Date & Time of Evaluation Date of Evaluation: 12/12/18 Time of Evaluation: 22:22 - Subjective Subjective: Above noted Extended discussion with family regarding disposition Objective - Vital Signs/Intake and Output Vital Signs (last 24 hours): Temp Pulse Resp BP Pulse Ox 97.8 F 86 20 102/55 L 96 12/12/18 16:23 12/12/18 16:23 12/12/18 16:23 12/12/18 16:23 12/12/18 16:23 - Medications Medications: Current Medications Acetaminophen (Tylenol 325mg Tab) 650 mg PO Q6 [facility] Last Admin: 12/12/18 16:15 Dose: Not Given Artificial Tears (Artificial Tears) 1 drop OU RQ4 PRN PRN Reason: Dry eyes Atorvastatin Calcium (Lipitor) 10 mg PO DAILY [facility] Last Admin: 12/12/18 08:49 Dose: 10 mg Bethanechol Chloride (Urecholine) 50 mg PO Q8H [facility] Last Admin: 12/12/18 16:30 Dose: 50 mg Enalapril Maleate (Vasotec) 20 mg PO DAILY [facility] Last Admin: 12/12/18 08:53 Dose: 20 mg Fluticasone Propionate (Flonase) 2 spr MARY DAILY [facility] Last Admin: 12/12/18 08:47 Dose: 2 spr Glipizide (Glucotrol Xl) 10 mg PO ACBD [facility] Last Admin: 12/12/18 16:31 Dose: 10 mg Heparin Sodium (Porcine) (Heparin) 5,000 units SC Q8@0400,1200,2000 [facility]; Protocol Last Admin: 12/12/18 20:14 Dose: 5,000 units Hydrochlorothiazide (Hydrodiuril) 25 mg PO DAILY [facility] Last Admin: 12/12/18 08:50 Dose: 25 mg Lactated Ringer's (Lactated Ringer's) 1,000 mls @ 30 mls/hr IV .Q24H [facility] Last Admin: 12/12/18 04:16 Dose: 30 mls/hr Insulin Detemir (Levemir) 24 units SC HS [facility] Last Admin: 12/11/18 21:30 Dose: 24 units Insulin Human Lispro (Humalog) 6 units SC AC [facility] Last Admin: 12/12/18 17:30 Dose: 6 unit Insulin Human Lispro (Humalog) 0 units SC ACHS [facility] Last Admin: 12/12/18 16:37 Dose: Not Given Latanoprost (Xalatan Opht) 1 drop OU HS [facility] Last Admin: 12/11/18 21:31 Dose: 1 drop Morphine Sulfate (Morphine) 1 mg IVP Q4 PRN PRN Reason: Pain, moderate (4-7) Last Admin: 12/11/18 20:21 Dose: 1 mg Ondansetron HCl (Zofran Inj) 2 mg IVP Q6 PRN PRN Reason: Nausea/Vomiting Last Admin: 12/09/18 18:29 Dose: 2 mg Repaglinide (Prandin) 2 mg PO TIDWM [facility] Last Admin: 12/12/18 16:30 Dose: 2 mg Tramadol HCl (Ultram) 50 mg PO Q4 PRN PRN Reason: Pain, severe (8-10) Last Admin: 12/12/18 18:14 Dose: 50 mg Vitamin D (Vitamin D 400 Intl Units Tab) 400 intlu PO DAILY [facility] Last Admin: 12/12/18 11:06 Dose: 400 intlu - Labs Labs: 12/12/18 06:10 12/12/18 06:10 PT 11.6 Seconds (9.8-13.1) 12/08/18 09:58 INR 1.0 12/08/18 09:58 APTT 31.4 Seconds (25.6-37.1) 12/08/18 09:58 - Respiratory Exam Respiratory Exam: NORMAL BREATHING PATTERN - Cardiovascular Exam Cardiovascular Exam: REGULAR RHYTHM - GI/Abdominal Exam GI & Abdominal Exam: Normal Bowel Sounds Assessment and Plan - Assessment and Plan (Free Text) Assessment: R Hip intertrochanteric Fx S/P ORIF POD #3 Ortho PT DVT prophylaxis Incentive spirometry Recurrent falls mechanical Unsteady gait/ imbalance Neurology Cardiology NIDDM Endo Hx Urinary retention UTI Hx Incontinence Hx Dysthymia??
[2018-12-12] MEDS: Latanoprost 0.005% Opht SOUTION OU SCH (21:26)
[2018-12-12] MEDS: Insulin Detemir 100 Units/ml Inj SC SCH (21:27)
[2018-12-13] MEDS: Lactated Ringer's 1,000 ML IV SCH (00:46)
[2018-12-13] MEDS: Bethanechol 50 MG TAB PO SCH ×3 (00:47→16:30)
[2018-12-13] MEDS: Insulin Lispro (humaLOG) 100 Units/ml Inj SC SCH ×7 (08:42→21:36)
[2018-12-13] MEDS: GlipiZIDE 10 mg SR Tab PO SCH ×2 (08:45→16:26)
[2018-12-13] MEDS: Cholecalciferol 400 Intl Units Tab PO SCH (08:46)
--- NOTE | 2018-12-13 10:15 | CP.PCM.PN ---
Subjective - Date & Time of Evaluation Date of Evaluation: 12/13/18 Time of Evaluation: 08:30 - Subjective Subjective: Patient seen and examined at bedside comfortable. Pain well controlled. Tolerating PT well. No other complaints. Objective - Vital Signs/Intake and Output Vital Signs (last 24 hours): Temp Pulse Resp BP Pulse Ox 98.2 F 76 20 102/58 L 95 12/13/18 08:22 12/13/18 08:22 12/13/18 08:22 12/13/18 08:22 12/13/18 08:22 - Medications Medications: Current Medications Acetaminophen (Tylenol 325mg Tab) 650 mg PO Q6 [facility] Last Admin: 12/13/18 09:39 Dose: 650 mg Artificial Tears (Artificial Tears) 1 drop OU RQ4 PRN PRN Reason: Dry eyes Atorvastatin Calcium (Lipitor) 10 mg PO DAILY [facility] Last Admin: 12/13/18 08:46 Dose: 10 mg Bethanechol Chloride (Urecholine) 50 mg PO Q8H [facility] Last Admin: 12/13/18 08:46 Dose: 50 mg Enalapril Maleate (Vasotec) 20 mg PO DAILY [facility] Last Admin: 12/13/18 08:46 Dose: 20 mg Fluticasone Propionate (Flonase) 2 spr MARY DAILY [facility] Last Admin: 12/13/18 08:47 Dose: 2 spr Glipizide (Glucotrol Xl) 10 mg PO ACBD [facility] Last Admin: 12/13/18 08:45 Dose: 10 mg Heparin Sodium (Porcine) (Heparin) 5,000 units SC Q8@0400,1200,2000 [facility]; Protocol Last Admin: 12/13/18 04:06 Dose: 5,000 units Hydrochlorothiazide (Hydrodiuril) 25 mg PO DAILY [facility] Last Admin: 12/13/18 08:45 Dose: 25 mg Lactated Ringer's (Lactated Ringer's) 1,000 mls @ 30 mls/hr IV .Q24H [facility] Last Admin: 12/13/18 00:46 Dose: 30 mls/hr Insulin Detemir (Levemir) 24 units SC HS [facility] Last Admin: 12/12/18 21:27 Dose: 24 units Insulin Human Lispro (Humalog) 6 units SC AC [facility] Last Admin: 12/13/18 08:45 Dose: 6 unit Insulin Human Lispro (Humalog) 0 units SC ACHS [facility] Last Admin: 12/13/18 08:42 Dose: Not Given Latanoprost (Xalatan Opht) 1 drop OU HS [facility] Last Admin: 12/12/18 21:26 Dose: 1 drop Morphine Sulfate (Morphine) 1 mg IVP Q4 PRN PRN Reason: Pain, moderate (4-7) Last Admin: 12/11/18 20:21 Dose: 1 mg Ondansetron HCl (Zofran Inj) 2 mg IVP Q6 PRN PRN Reason: Nausea/Vomiting Last Admin: 12/09/18 18:29 Dose: 2 mg Repaglinide (Prandin) 2 mg PO TIDWM [facility] Last Admin: 12/13/18 08:46 Dose: 2 mg Tramadol HCl (Ultram) 50 mg PO Q4 PRN PRN Reason: Pain, severe (8-10) Last Admin: 12/13/18 07:26 Dose: 50 mg Vitamin D (Vitamin D 400 Intl Units Tab) 400 intlu PO DAILY [facility] Last Admin: 12/13/18 08:46 Dose: 400 intlu - Labs Labs: 12/12/18 06:10 12/12/18 06:10 PT 11.6 Seconds (9.8-13.1) 12/08/18 09:58 INR 1.0 12/08/18 09:58 APTT 31.4 Seconds (25.6-37.1) 12/08/18 09:58 - Extremities Exam Additional comments: RLE: Aquacel dressings CDI mild swelling sensation intact SP/DP/TN motor intact EHL/FHL/TA/G pedal pulse intact calves soft NT b/l Assessment and Plan (1) Closed intertrochanteric fracture of right femur Assessment & Plan: POD#4 s/p R hip short TFN nail fixation -PT/OT WBAT -DVT ppx -orthopedically stable for d/c to rehab -above d/w Dr. Calles who agrees Status: Acute
--- NOTE | 2018-12-13 12:54 | PN ---
DATE: 12/12/2018 LOCATION: Room 667. SUBJECTIVE: This is an 88-year-old female with recent right hip injury following accidental fall, sustaining a right hip fracture, underwent right intertrochanteric nail insertion and . Glycemic levels are fluctuating . LABORATORY DATA: Her chemistry showed a BUN of 19, sodium 136, potassium 4.7, chloride 100, CO2 of 23, glucose 103, creatinine 1.2. ASSESSMENT: This is an 88-year-old female with recent uncontrolled type 2 insulin-requiring diabetes presenting here with marked hyperglycemic accelerations following a recent accidental fall and sustaining a right hip fracture and underwent surgical resection. PLAN OF MANAGEMENT: We will continue the modified basal insulin given at higher dose of 11 units and 24 units subcutaneous at bedtime daily as given. We will continue the Humalog given as 6 units t.i.d. before meals to allow for dose equilibration and detailed orders have been given. We will also modify the low-dose correction scale using Humalog insulin to obviate hypoglycemia and detailed orders have been given. We will obtain serial chemistries and supplement accordingly as needed. We will follow. Kerri Bacon MD
--- NOTE | 2018-12-13 19:25 | CP.PCM.PN ---
Subjective - Date & Time of Evaluation Date of Evaluation: 12/13/18 Time of Evaluation: 22:22 - Subjective Subjective: Above noted Objective - Vital Signs/Intake and Output Vital Signs (last 24 hours): Temp Pulse Resp BP Pulse Ox 97.9 F 83 20 112/67 96 12/13/18 16:22 12/13/18 16:22 12/13/18 16:22 12/13/18 16:22 12/13/18 16:22 - Medications Medications: Current Medications Acetaminophen (Tylenol 325mg Tab) 650 mg PO Q6 [facility] Last Admin: 12/13/18 16:25 Dose: 650 mg Artificial Tears (Artificial Tears) 1 drop OU RQ4 PRN PRN Reason: Dry eyes Atorvastatin Calcium (Lipitor) 10 mg PO DAILY [facility] Last Admin: 12/13/18 08:46 Dose: 10 mg Bethanechol Chloride (Urecholine) 50 mg PO Q8H [facility] Last Admin: 12/13/18 16:30 Dose: 50 mg Enalapril Maleate (Vasotec) 20 mg PO DAILY [facility] Last Admin: 12/13/18 08:46 Dose: 20 mg Fluticasone Propionate (Flonase) 2 spr MARY DAILY [facility] Last Admin: 12/13/18 08:47 Dose: 2 spr Glipizide (Glucotrol Xl) 10 mg PO ACBD [facility] Last Admin: 12/13/18 16:26 Dose: 10 mg Heparin Sodium (Porcine) (Heparin) 5,000 units SC Q8@0400,1200,2000 [facility]; Protocol Last Admin: 12/13/18 12:08 Dose: 5,000 units Hydrochlorothiazide (Hydrodiuril) 25 mg PO DAILY [facility] Last Admin: 12/13/18 08:45 Dose: 25 mg Lactated Ringer's (Lactated Ringer's) 1,000 mls @ 30 mls/hr IV .Q24H [facility] Last Admin: 12/13/18 00:46 Dose: 30 mls/hr Insulin Detemir (Levemir) 24 units SC HS [facility] Last Admin: 12/12/18 21:27 Dose: 24 units Insulin Human Lispro (Humalog) 6 units SC AC [facility] Last Admin: 12/13/18 16:26 Dose: 6 unit Insulin Human Lispro (Humalog) 0 units SC ACHS [facility] Last Admin: 12/13/18 16:23 Dose: Not Given Latanoprost (Xalatan Opht) 1 drop OU HS [facility] Last Admin: 12/12/18 21:26 Dose: 1 drop Morphine Sulfate (Morphine) 1 mg IVP Q4 PRN PRN Reason: Pain, moderate (4-7) Last Admin: 12/11/18 20:21 Dose: 1 mg Ondansetron HCl (Zofran Inj) 2 mg IVP Q6 PRN PRN Reason: Nausea/Vomiting Last Admin: 12/09/18 18:29 Dose: 2 mg Repaglinide (Prandin) 2 mg PO TIDWM [facility] Last Admin: 12/13/18 16:25 Dose: 2 mg Tramadol HCl (Ultram) 50 mg PO Q4 PRN PRN Reason: Pain, severe (8-10) Last Admin: 12/13/18 12:07 Dose: 50 mg Vitamin D (Vitamin D 400 Intl Units Tab) 400 intlu PO DAILY [facility] Last Admin: 12/13/18 08:46 Dose: 400 intlu - Labs Labs: 12/12/18 06:10 12/12/18 06:10 PT 11.6 Seconds (9.8-13.1) 12/08/18 09:58 INR 1.0 12/08/18 09:58 APTT 31.4 Seconds (25.6-37.1) 12/08/18 09:58 - Respiratory Exam Respiratory Exam: NORMAL BREATHING PATTERN - Cardiovascular Exam Cardiovascular Exam: REGULAR RHYTHM - GI/Abdominal Exam GI & Abdominal Exam: Normal Bowel Sounds Assessment and Plan - Assessment and Plan (Free Text) Assessment: R Hip intertrochanteric Fx S/P ORIF POD #4 Ortho PT DVT prophylaxis Incentive spirometry Recurrent falls mechanical Unsteady gait/ imbalance Neurology Cardiology NIDDM Endo Hx Urinary retention UTI Hx Incontinence Hx Dysthymia??
--- NOTE | 2018-12-13 20:17 | PN ---
DATE: 12/13/2018 ENDOCRINOLOGY FOLLOWUP NOTE LOCATION: In room 667. SUBJECTIVE: This is an 88-year-old female with recent uncontrolled type 2 insulin-requiring diabetes presenting here with recent hyperglycemic accelerations following an accidental fall and sustained a right hip fracture and underwent surgical orthopedic resection as noted thereof. LABORATORY DATA: Her glycemic levels postoperatively are fluctuating, but improved and the glucose values have ranged from 108 to 165 and 216 mg/dL. Her chemistry showed a BUN of 19, sodium 136, potassium 4.1, chloride 100, CO2 of 28, glucose 110 and creatinine of 1.2. ASSESSMENT: This is an 88-year-old female with recent uncontrolled type 2 insulin-requiring diabetes, now being followed closely for metabolic management. She has sustained a right hip fracture and underwent a pinning insertion in the intertrochanteric area of the right hip and is now being followed closely postoperatively for diabetic and metabolic management. PLAN OF MANAGEMENT: We will continue the modified basal and bolus insulin regimen to allow for dose equilibration and keep her on the Levemir given as 24 units subcu at bedtime daily as ordered. We will also continue the Humalog given as 6 units t.i.d. before meals as ordered. We will continue the low-dose correction scale using Humalog insulin as given. We will obtain serial chemistries and supplement accordingly as needed. We will follow. Kerri Bacon MD
[2018-12-13] MEDS: Latanoprost 0.005% Opht SOUTION OU SCH (21:26)
[2018-12-13] MEDS: Insulin Detemir 100 Units/ml Inj SC SCH (21:27)
[2018-12-14] MEDS: Bethanechol 50 MG TAB PO SCH ×3 (00:46→16:30)
[2018-12-14] MEDS: Lactated Ringer's 1,000 ML IV SCH (01:45)
[2018-12-14 06:01] LABS: HEMOGLOBIN 10.2 g/dL (12.0-16.0); MEAN CELL VOLUME 86.6 fl (81.0-99.0); MEAN CORPUSCULAR HGB CONC 33.5 g/dL (33.0-37.0); RBC 3.53 Mil/uL (3.80-5.20); RED CELL DISTRIBUTION WIDTH 15.5 % (11.5-14.5); WHITE BLOOD COUNT 8.9 K/uL (4.8-10.8)
[2018-12-14 06:29] LABS: ALB/GLOB RATIO 1.1 (1.0-2.1); ALBUMIN 3.3 g/dL (3.5-5.0); CALCIUM 8.7 mg/dL (8.4-10.2)
[2018-12-14] MEDS: GlipiZIDE 10 mg SR Tab PO SCH ×2 (08:32→16:19)
[2018-12-14] MEDS: Cholecalciferol 400 Intl Units Tab PO SCH (08:32)
[2018-12-14] MEDS: Insulin Lispro (humaLOG) 100 Units/ml Inj SC SCH ×7 (08:33→22:12)
[2018-12-14] MEDS ORDERED: Potassium Chloride 20 mEq ER Tab PO ONE (11:41)
--- NOTE | 2018-12-14 11:43 | CP.PCM.PN ---
Subjective - Date & Time of Evaluation Date of Evaluation: 12/14/18 Time of Evaluation: 10:30 - Subjective Subjective: Patient seen and examined at bedside comfortable. Pain well controlled. at bedside. No acute changes, no new complaints. Awaiting placement. Objective - Vital Signs/Intake and Output Vital Signs (last 24 hours): Temp Pulse Resp BP Pulse Ox 98.1 F 83 18 133/63 96 12/14/18 08:35 12/14/18 08:35 12/14/18 08:35 12/14/18 08:35 12/14/18 08:35 - Medications Medications: Current Medications Acetaminophen (Tylenol 325mg Tab) 650 mg PO Q6 [facility] Last Admin: 12/14/18 09:28 Dose: 650 mg Artificial Tears (Artificial Tears) 1 drop OU RQ4 PRN PRN Reason: Dry eyes Atorvastatin Calcium (Lipitor) 10 mg PO DAILY [facility] Last Admin: 12/14/18 08:33 Dose: 10 mg Bethanechol Chloride (Urecholine) 50 mg PO Q8H [facility] Last Admin: 12/14/18 08:31 Dose: 50 mg Enalapril Maleate (Vasotec) 20 mg PO DAILY [facility] Last Admin: 12/14/18 08:31 Dose: 20 mg Fluticasone Propionate (Flonase) 2 spr MARY DAILY [facility] Last Admin: 12/14/18 08:33 Dose: 2 spr Glipizide (Glucotrol Xl) 10 mg PO ACBD [facility] Last Admin: 12/14/18 08:32 Dose: 10 mg Heparin Sodium (Porcine) (Heparin) 5,000 units SC Q8@0400,1200,2000 [facility]; Protocol Last Admin: 12/14/18 03:53 Dose: 5,000 units Hydrochlorothiazide (Hydrodiuril) 25 mg PO DAILY [facility] Last Admin: 12/14/18 08:33 Dose: 25 mg Lactated Ringer's (Lactated Ringer's) 1,000 mls @ 30 mls/hr IV .Q24H [facility] Last Admin: 12/14/18 01:45 Dose: Not Given Insulin Detemir (Levemir) 24 units SC HS [facility] Last Admin: 12/13/18 21:27 Dose: 24 units Insulin Human Lispro (Humalog) 6 units SC AC [facility] Last Admin: 12/14/18 08:33 Dose: 6 unit Insulin Human Lispro (Humalog) 0 units SC ACHS [facility] Last Admin: 12/14/18 08:33 Dose: Not Given Latanoprost (Xalatan Opht) 1 drop OU HS [facility] Last Admin: 12/13/18 21:26 Dose: 1 drop Morphine Sulfate (Morphine) 1 mg IVP Q4 PRN PRN Reason: Pain, moderate (4-7) Last Admin: 12/11/18 20:21 Dose: 1 mg Ondansetron HCl (Zofran Inj) 2 mg IVP Q6 PRN PRN Reason: Nausea/Vomiting Last Admin: 12/09/18 18:29 Dose: 2 mg Repaglinide (Prandin) 2 mg PO TIDWM [facility] Last Admin: 12/14/18 08:33 Dose: 2 mg Tramadol HCl (Ultram) 50 mg PO Q4 PRN PRN Reason: Pain, severe (8-10) Last Admin: 12/13/18 12:07 Dose: 50 mg Vitamin D (Vitamin D 400 Intl Units Tab) 400 intlu PO DAILY [facility] Last Admin: 12/14/18 08:32 Dose: 400 intlu - Labs Labs: 12/14/18 05:51 12/14/18 05:51 PT 11.6 Seconds (9.8-13.1) 12/08/18 09:58 INR 1.0 12/08/18 09:58 APTT 31.4 Seconds (25.6-37.1) 12/08/18 09:58 - Extremities Exam Additional comments: RLE: Aquacel dressings CDI Dressings removed, incision CDI with [place] mild swelling sensation intact SP/DP/TN motor intact EHL/FHL/TA/G pedal pulse intact calves soft NT b/l Assessment and Plan (1) Closed intertrochanteric fracture of right femur Assessment & Plan: POD#5 s/p R hip short TFN nail fixation -Dressings changed -[place] to be removed 2 weeks postop -PT/OT WBAT -DVT ppx -orthopedically stable for d/c to rehab -above d/w Dr. Calles who agrees Status: Acute
[2018-12-14] MEDS: Sodium Chloride 0.45% 1,000 ML IV SCH (12:11)
--- NOTE | 2018-12-14 16:53 | CP.PCM.PN ---
Subjective - Date & Time of Evaluation Date of Evaluation: 12/14/18 Time of Evaluation: 22:22 - Subjective Subjective: Extended discussion with staff regarding disposition Acute vs subacute rehab Objective - Vital Signs/Intake and Output Vital Signs (last 24 hours): Temp Pulse Resp BP Pulse Ox 98.2 F 83 18 117/64 96 12/14/18 16:22 12/14/18 16:22 12/14/18 16:22 12/14/18 16:22 12/14/18 16:22 - Medications Medications: Current Medications Acetaminophen (Tylenol 325mg Tab) 650 mg PO Q6 [facility] Last Admin: 12/14/18 16:19 Dose: 650 mg Artificial Tears (Artificial Tears) 1 drop OU RQ4 PRN PRN Reason: Dry eyes Atorvastatin Calcium (Lipitor) 10 mg PO DAILY [facility] Last Admin: 12/14/18 08:33 Dose: 10 mg Bethanechol Chloride (Urecholine) 50 mg PO Q8H [facility] Last Admin: 12/14/18 16:30 Dose: 50 mg Enalapril Maleate (Vasotec) 20 mg PO DAILY [facility] Last Admin: 12/14/18 08:31 Dose: 20 mg Fluticasone Propionate (Flonase) 2 spr MARY DAILY [facility] Last Admin: 12/14/18 08:33 Dose: 2 spr Glipizide (Glucotrol Xl) 10 mg PO ACBD [facility] Last Admin: 12/14/18 16:19 Dose: 10 mg Heparin Sodium (Porcine) (Heparin) 5,000 units SC Q8@0400,1200,2000 [facility]; Protocol Last Admin: 12/14/18 12:04 Dose: 5,000 units Hydrochlorothiazide (Hydrodiuril) 25 mg PO DAILY [facility] Last Admin: 12/14/18 08:33 Dose: 25 mg Lactated Ringer's (Lactated Ringer's) 1,000 mls @ 30 mls/hr IV .Q24H [facility] Last Admin: 12/14/18 01:45 Dose: Not Given Sodium Chloride (Sodium Chloride 0.45%) 1,000 mls @ 50 mls/hr IV .Q20H [facility] Stop: 12/15/18 11:42 Last Admin: 12/14/18 12:11 Dose: 50 mls/hr Insulin Detemir (Levemir) 24 units SC HS [facility] Last Admin: 12/13/18 21:27 Dose: 24 units Insulin Human Lispro (Humalog) 6 units SC AC [facility] Last Admin: 12/14/18 16:16 Dose: 6 unit Insulin Human Lispro (Humalog) 0 units SC ACHS [facility] Last Admin: 12/14/18 16:16 Dose: Not Given Latanoprost (Xalatan Opht) 1 drop OU HS [facility] Last Admin: 12/13/18 21:26 Dose: 1 drop Morphine Sulfate (Morphine) 1 mg IVP Q4 PRN PRN Reason: Pain, moderate (4-7) Last Admin: 12/11/18 20:21 Dose: 1 mg Ondansetron HCl (Zofran Inj) 2 mg IVP Q6 PRN PRN Reason: Nausea/Vomiting Last Admin: 12/09/18 18:29 Dose: 2 mg Repaglinide (Prandin) 2 mg PO TIDWM [facility] Last Admin: 12/14/18 16:15 Dose: 2 mg Tramadol HCl (Ultram) 50 mg PO Q4 PRN PRN Reason: Pain, severe (8-10) Last Admin: 12/14/18 14:10 Dose: 50 mg Vitamin D (Vitamin D 400 Intl Units Tab) 400 intlu PO DAILY [facility] Last Admin: 12/14/18 08:32 Dose: 400 intlu - Labs Labs: 12/14/18 05:51 12/14/18 05:51 PT 11.6 Seconds (9.8-13.1) 12/08/18 09:58 INR 1.0 12/08/18 09:58 APTT 31.4 Seconds (25.6-37.1) 12/08/18 09:58 - Respiratory Exam Respiratory Exam: NORMAL BREATHING PATTERN - Cardiovascular Exam Cardiovascular Exam: REGULAR RHYTHM - GI/Abdominal Exam GI & Abdominal Exam: Normal Bowel Sounds Assessment and Plan - Assessment and Plan (Free Text) Assessment: R Hip intertrochanteric Fx S/P ORIF POD #5 Ortho PT DVT prophylaxis Incentive spirometry Recurrent falls mechanical Unsteady gait/ imbalance Neurology Cardiology NIDDM Endo Hx Urinary retention UTI Hx Incontinence Hx Dysthymia??
[2018-12-14] MEDS ORDERED: Insulin Detemir 100 Units/ml Inj SC SCH (22:00)
[2018-12-14] MEDS: Latanoprost 0.005% Opht SOUTION OU SCH (22:09)
[2018-12-15] MEDS: Bethanechol 50 MG TAB PO SCH ×3 (01:16→16:47)
[2018-12-15] MEDS: Lactated Ringer's 1,000 ML IV SCH (01:19)
[2018-12-15] MEDS: Insulin Lispro (humaLOG) 100 Units/ml Inj SC SCH ×7 (07:37→22:39)
[2018-12-15] MEDS: Sodium Chloride 0.45% 1,000 ML IV SCH ×2 (09:06→13:09)
[2018-12-15] MEDS: Cholecalciferol 400 Intl Units Tab PO SCH (09:10)
[2018-12-15] MEDS: GlipiZIDE 10 mg SR Tab PO SCH ×2 (09:10→16:47)
--- NOTE | 2018-12-15 10:34 | CP.PCM.PN ---
Subjective - Date & Time of Evaluation Date of Evaluation: 12/15/18 Time of Evaluation: 22:22 - Subjective Subjective: Multiple calls regarding disposition Extended conversation Objective - Vital Signs/Intake and Output Vital Signs (last 24 hours): Temp Pulse Resp BP Pulse Ox 98.5 F 89 18 150/62 97 12/15/18 09:00 12/15/18 09:00 12/15/18 09:00 12/15/18 09:00 12/15/18 09:00 - Medications Medications: Current Medications Acetaminophen (Tylenol 325mg Tab) 650 mg PO Q6 [facility] Last Admin: 12/15/18 03:22 Dose: 650 mg Artificial Tears (Artificial Tears) 1 drop OU RQ4 PRN PRN Reason: Dry eyes Atorvastatin Calcium (Lipitor) 10 mg PO DAILY [facility] Last Admin: 12/15/18 09:09 Dose: 10 mg Bethanechol Chloride (Urecholine) 50 mg PO Q8H [facility] Last Admin: 12/15/18 09:09 Dose: 50 mg Enalapril Maleate (Vasotec) 20 mg PO DAILY [facility] Last Admin: 12/15/18 09:09 Dose: 20 mg Fluticasone Propionate (Flonase) 2 spr MARY DAILY [facility] Last Admin: 12/15/18 09:09 Dose: 2 spr Glipizide (Glucotrol Xl) 10 mg PO ACBD [facility] Last Admin: 12/15/18 09:10 Dose: 10 mg Heparin Sodium (Porcine) (Heparin) 5,000 units SC Q8@0400,1200,2000 BITA; Protocol Last Admin: 12/15/18 03:19 Dose: 5,000 units Hydrochlorothiazide (Hydrodiuril) 25 mg PO DAILY [facility] Last Admin: 12/15/18 09:10 Dose: 25 mg Lactated Ringer's (Lactated Ringer's) 1,000 mls @ 30 mls/hr IV .Q24H [facility] Last Admin: 12/15/18 01:19 Dose: Not Given Sodium Chloride (Sodium Chloride 0.45%) 1,000 mls @ 50 mls/hr IV .Q20H [facility] Stop: 12/15/18 11:42 Last Admin: 12/15/18 09:06 Dose: 50 mls/hr Insulin Detemir (Levemir) 20 units [facility] Last Admin: 12/14/18 22:10 Dose: 20 units Insulin Human Lispro (Humalog) 6 units SC AC [facility] Last Admin: 12/15/18 09:10 Dose: 6 unit Insulin Human Lispro (Humalog) 0 units SC ACHS [facility] Last Admin: 12/15/18 07:37 Dose: Not Given Latanoprost (Xalatan Opht) 1 drop OU HS [facility] Last Admin: 12/14/18 22:09 Dose: 1 drop Morphine Sulfate (Morphine) 1 mg IVP Q4 PRN PRN Reason: Pain, moderate (4-7) Last Admin: 12/15/18 09:01 Dose: 1 mg Ondansetron HCl (Zofran Inj) 2 mg IVP Q6 PRN PRN Reason: Nausea/Vomiting Last Admin: 12/09/18 18:29 Dose: 2 mg Repaglinide (Prandin) 2 mg PO TIDWM [facility] Last Admin: 12/15/18 09:09 Dose: 2 mg Tramadol HCl (Ultram) 50 mg PO Q4 PRN PRN Reason: Pain, severe (8-10) Last Admin: 12/15/18 06:21 Dose: 50 mg Vitamin D (Vitamin D 400 Intl Units Tab) 400 intlu PO DAILY [facility] Last Admin: 12/15/18 09:10 Dose: 400 intlu - Labs Labs: 12/14/18 05:51 12/14/18 05:51 PT 11.6 Seconds (9.8-13.1) 12/08/18 09:58 INR 1.0 12/08/18 09:58 APTT 31.4 Seconds (25.6-37.1) 12/08/18 09:58 - Respiratory Exam Respiratory Exam: NORMAL BREATHING PATTERN - Cardiovascular Exam Cardiovascular Exam: REGULAR RHYTHM - GI/Abdominal Exam GI & Abdominal Exam: Normal Bowel Sounds Assessment and Plan - Assessment and Plan (Free Text) Assessment: R Hip intertrochanteric Fx S/P ORIF POD #6 Ortho PT DVT prophylaxis Incentive spirometry Recurrent falls mechanical Unsteady gait/ imbalance Neurology Cardiology NIDDM Endo Hx Urinary retention UTI Hx Incontinence Hx Dysthymia??
[2018-12-15 11:36] LABS: CALCIUM 8.8 mg/dL (8.4-10.2)
[2018-12-15] MEDS ORDERED: Potassium Chloride 20 mEq ER Tab PO SCH ×2 (12:15→13:30)
[2018-12-15] MEDS ORDERED: Potassium Chloride 20 mEq/15 ml LIQ UD PO SCH (12:15)
[2018-12-15 13:18] LABS: SQUAMOUS EPITHIAL 2 /hpf (0-5); URINE BACTERIA OCC (<OCC); URINE BILIRUBIN NEGATIVE (NEGATIVE); URINE BLOOD MODERATE (NEGATIVE); URINE CLARITY TURBID (Clear); URINE COLOR YELLOW (YELLOW); URINE GLUCOSE (UA) >=500 mg/dL (NEGATIVE); URINE LEUKOCYTE ESTERASE LARGE Leu/uL (Negative); URINE PROTEIN 100 mg/dL (NEGATIVE); URINE UROBILINOGEN 0.2-1.0 mg/dL (0.2-1.0); WBC CLUMPS MANY /hpf
--- NOTE | 2018-12-15 14:33 | PN ---
DATE: 12/14/2018 ENDOCRINOLOGY FOLLOWUP NOTE LOCATION: Room 668. SUBJECTIVE: This is an 88-year-old female with recent uncontrolled type 2 insulin-requiring diabetes, sustaining a right hip fracture from a recent accidental fall and underwent an orthopedic resection and pinning of the intertrochanteric hip area in the right hip joint as noted. Her glycemic levels are fluctuating as expected from the transient hyperglycemic accelerations and increased insulin resistance thereof. The glucose values have improved but are fluctuating and have ranged from 125 to 153 and 240 mg/dL. Her chemistries showed a BUN of 22, sodium 140, potassium 3.5, chloride 101, CO2 of 30, glucose 78, and creatinine 1.3. ASSESSMENT: This is an 88-year-old female with uncontrolled and decompensated type 2 insulin-requiring diabetes with transient hyperglycemic accelerations from the increased physical stressors and recent right hip fracture and surgical resection undertaken thereof. PLAN OF MANAGEMENT: We will modify her current basal and bolus insulin regimen to optimize metabolic control. We will lower the basal insulin with Levemir to be given as 20 units subcu at bedtime daily to start tonight. We will titrate incrementally as indicated to optimize metabolic control. We will also continue the low-dose correction scale using Humalog insulin to obviate hypoglycemia and detailed orders have been given. Moreover, we will continue the low-dose prandial insulin with Humalog given as 6 units subcu t.i.d. before meals as ordered. We will obtain serial chemistries and supplement accordingly as needed. We will follow. Kerri Bacon MD
[2018-12-15] MEDS: Potassium CL 10 MEQ/50 ML 50 ML IVPB SCH ×2 (15:56→16:44)
--- NOTE | 2018-12-15 17:31 | PN ---
DATE: 12/15/2018 ENDOCRINOLOGY FOLLOWUP NOTE LOCATION: Room 668. SUBJECTIVE: This is an 88-year-old female with recent right hip injury, sustained on accidental fall with a subsequent right hip fracture and is now being followed closely for metabolic management. Her glycemic levels are fluctuating but improved and the glucose values today; however, have been slightly elevated ranging from 295-379 mg/dL. Her bedtime glucose was 179 with an campus director glucose of 101. LABORATORY DATA: The chemistry showed a BUN of 19, sodium 135, potassium 3.3, chloride 97, CO2 of 26, glucose 315 and creatinine 1.3. ASSESSMENT: This is an 88-year-old female with uncontrolled and decompensated type 2 insulin-requiring diabetes with extremes of glycemic fluctuations related to the variability of her oral intake and is now being followed closely for metabolic management. She also had an accidental fall and sustained a right hip fracture and underwent surgical resection thereof and is now being followed closely postoperatively as noted. PLAN OF MANAGEMENT: We will modify her current basal and bolus insulin regimen and titrate her Levemir to 24 units subcutaneous at bedtime daily to start tonight. We will titrate incrementally as indicated to optimize metabolic control. We will also titrate her prandial insulin with Humalog to be given as 8 units subcutaneous t.i.d. before meals to start today as ordered. We will obtain serial chemistries and supplement accordingly as needed. We will also continue the low-dose correction scale using Humalog insulin as given and a very low-dose coverage scale only to obviate hypoglycemia. We will follow. Kerri Bacon MD
[2018-12-15] MEDS: Tmp-Smz 800 mg-160 mg DS Tab PO SCH (20:17)
[2018-12-15] MEDS: Latanoprost 0.005% Opht SOUTION OU SCH (22:13)
[2018-12-15] MEDS: Insulin Detemir 100 Units/ml Inj SC SCH (22:17)
[2018-12-16] MEDS: Sodium Chloride 0.45% 1,000 ML IV SCH ×2 (01:02→08:31)
[2018-12-16] MEDS: Bethanechol 50 MG TAB PO SCH ×3 (01:42→18:00)
[2018-12-16 07:33] LABS: ALB/GLOB RATIO 1.1 (1.0-2.1); ALBUMIN 3.6 g/dL (3.5-5.0); CALCIUM 9.1 mg/dL (8.4-10.2)
[2018-12-16] MEDS: Insulin Lispro (humaLOG) 100 Units/ml Inj SC SCH ×7 (07:40→21:40)
[2018-12-16] MEDS: GlipiZIDE 10 mg SR Tab PO SCH ×2 (08:24→18:01)
[2018-12-16] MEDS: Tmp-Smz 800 mg-160 mg DS Tab PO SCH ×2 (08:24→20:12)
[2018-12-16] MEDS: Cholecalciferol 400 Intl Units Tab PO SCH (08:30)
[2018-12-16] MEDS: Potassium CL 10mEq/100ml 100 ML IVPB SCH ×4 (10:06→22:30)
[2018-12-16] MEDS: Potassium Chloride 20 mEq/15 ml LIQ UD PO ONE ×2 (10:17→10:32)
--- NOTE | 2018-12-16 13:03 | PN ---
DATE: 12/16/2018 SUBJECTIVE: The patient seen and examined. Chart reviewed. The patient seen for Dr. Whittington while he is away. The patient remains in regular medical floor. The patient's is at bedside. The patient is not able to provide any informative history or review of system. The patient denies any specific complaints. Nursing staff reported low potassium but there is no other acute medical issue reported by nursing staff. The patient is little bit restless but in no acute distress, eating her food very well. PHYSICAL EXAMINATION: GENERAL: The patient is in no acute distress. VITAL SIGNS: Stable. HEART: S1, S2, normal and regular. LUNGS: Good bilateral air exchange. ABDOMEN: Soft, nontender. EXTREMITIES: No edema, no calf swelling, no tenderness. No acute ischemia. CENTRAL NERVOUS SYSTEM: Exam is essentially unchanged. DIAGNOSTIC DATA: Available diagnostic data reviewed. ASSESSMENT AND PLAN: Overall, the patient's general medical condition is stable. Plan as ordered. Rashid Ellis MD
--- NOTE | 2018-12-16 13:34 | PN ---
DATE: 12/16/2018 ENDOCRINOLOGY FOLLOWUP NOTE LOCATION: In room 668. SUBJECTIVE: This is an 88-year-old female with recent uncontrolled type 2 insulin-requiring diabetes, presenting here with an accidental fall and sustained a right hip fracture and underwent intertrochanteric pinning procedure as noted thereof. Her glycemic levels are fluctuating, but improved and the glucose values postoperatively have shown glucose levels ranging from 167-203 mg/dL. LABORATORY DATA: Her chemistry showed a BUN of 22, sodium 137, potassium 3, chloride 98, CO2 of 28, glucose 147, and creatinine 1.2. ASSESSMENT: This is an 88-year-old female with recent uncontrolled type 2 insulin-requiring diabetes, now being followed closely for metabolic management. She also has undergone a right hip intertrochanteric pinning orthopedic procedure following a right hip fracture from the accidental fall as noted. PLAN OF MANAGEMENT: We will continue to modify basal and bolus insulin regimen as given with Humalog given as 8 units t.i.d. before meals as ordered. We will continue the Levemir given as 24 units subcutaneously at bedtime daily as given. We will titrate incrementally as indicated to optimize metabolic control. We will continue also the dual oral hypoglycemic drug therapy as given with glipizide at 10 mg b.i.d. and Prandin at 2 mg t.i.d. as ordered. We will obtain serial chemistries and supplement accordingly as needed. We will follow. Kerri Bacon MD
--- NOTE | 2018-12-16 17:05 | RAD ---
Date of service: 12/16/2018 HISTORY: O2 sat <90% COMPARISON: Frontal chest radiograph 12/08/2018. TECHNIQUE: 1 view obtained. FINDINGS: LUNGS: Fibrotic change are again appreciate the inferior lung zones bilaterally with no interval infiltrate bilaterally. PLEURA: No significant pleural effusion identified, no pneumothorax apparent. CARDIOVASCULAR: Calcific atherosclerotic changes are seen related to the thoracic aorta. Normal cardiac size. No pulmonary vascular congestion. OSSEOUS STRUCTURES: No significant abnormalities. VISUALIZED UPPER ABDOMEN: Normal. OTHER FINDINGS: None. IMPRESSION: Limited bilateral basilar pulmonary fibrotic changes reiterated. No acute infiltrate, pleural effusion or pneumothorax identified. No pulmonary vascular congestion.
[2018-12-16] MEDS: Insulin Detemir 100 Units/ml Inj SC SCH (21:39)
[2018-12-16] MEDS: Latanoprost 0.005% Opht SOUTION OU SCH (21:41)
[2018-12-17] MEDS: Bethanechol 50 MG TAB PO SCH (00:36)
[2018-12-17] MEDS: Insulin Lispro (humaLOG) 100 Units/ml Inj SC SCH (06:31)
[2018-12-17 07:43] VITALS: BP 100/66; TEMP 97.8; O2SAT 95
[2018-12-17] MEDS ORDERED: Ciprofloxacin 400mg/200ml D5W 400 MG/200 ML BAG IVPB SCH (09:00)
[2018-12-17] MEDS ORDERED: Albuterol-Ipratrop 3 mg / 0.5 (3 ml) UD INH STA (09:17)
[2018-12-17] MEDS ORDERED: Dextrose 50% SYRINGE Inj (50 ml) IVP ONE (09:19)
--- NOTE | 2018-12-17 09:20 | PCM.RRT ---
MEDICAL HISTORIAN Nurse Assessment - Situation MEDICAL HISTORIAN Responder Arrival Time: 09:09 Location: med/surg Room Number: 668-2 MEDICAL HISTORIAN Reason for Call: Hypotension MEDICAL HISTORIAN Called By: RN - IV IV Inserted during MEDICAL HISTORIAN?: No - Respiratory Received Nebulizer Treatments: Yes (Duonebs x1) Was the Patient Ventilated with Bag/Mask 100% O2?: No Secretions Suctioned?: No Was the Patient Intubated?: No Was the Patient Placed on a Ventilator?: No - Medication Medications Administered During MEDICAL HISTORIAN: D50. D5W - NS @ 60cc/hr. Duoneb treatment x1 - Diagnostic Test Ordered EKG: No Chest X-Ray: Yes CT Scan: Yes (CTA given hypoxemia) - Stat Labs Ordered MEDICAL HISTORIAN Stat Labs Ordered: CBC, LACTIC ACID, ABG MEDICAL HISTORIAN Other Labs Ordered: CMP, Magnesium, Phosphorus, Pro BNP, CPR started during MEDICAL HISTORIAN?: No - Vital Signs Vital Signs: BP: 69/39 ; HR: 122 ; O2 sat: 81% - [place] Coma Scale Coma Scale Eye Opening: Spontaneous Coma Scale Motor: Obeys Commands Movement Coma Scale Verbal: Incomprehensible speech Coma Scale Total: 12 - Sepsis Screen Part 1 Sepsis Screen Part 1: Hypotensive - Time MEDICAL HISTORIAN Ended Time MEDICAL HISTORIAN Ended: 09:30 - Vital Signs at end of MEDICAL HISTORIAN Vital Signs at end of MEDICAL HISTORIAN: BP: 93/57 ; HR: 117 - Recommendations MEDICAL HISTORIAN Level of Care Recommendations: Transfer to ICU I.Reason for MEDICAL HISTORIAN - A) Acute Change in Patient: (Select all that apply): Staff member or family is worried about patient Other reason for calling MEDICAL HISTORIAN:: Hypoxemia and hypotensive Subjective: 88 yo female with history of NIDDM admitted for right Hip intertrochanteric fx s/p ORIF and for UTI; MEDICAL HISTORIAN called for hypotension and hypoxemia. Unable to obtain history from patient as she is not speaking in full sentences. Vital Signs on arrival: BP: 69/39 ; HR: 122; O2 saturation: 81% ; RR: 19 ; Interventions: - D50 given as glucose was 35 - D5W NS @ 60ml/hr given patient has not eaten - Enalapril holding parameters - Cipro changed to rocephin - labs sent (see above) - Duoneb treatment x1 - CTA given hypoxemia - Transferred to ICU - Neurological Status (Select all that apply): Disoriented, Confused - Constitutional Appears: In Acute Distress, Older Than Stated Age, Confused, Chronically Ill - Eyes Eye Exam: Normal appearance - Respiratory Exam Respiratory Exam: Rales, Rhonchi, Respiratory Distress - Cardiovascular Exam Cardiovascular Exam: +S1, +S2 - Neurological Exam Neurological Exam: Altered (Confused) Plan - Assessment of Findings&Treatment Plan Assessment: 88 yo female with history of NIDDM admitted for right Hip intertrochanteric fx s/p ORIF and for UTI; MEDICAL HISTORIAN called for hypotension and hypoxemia. Plan: Acute respiratory distress - Rule out PE with CTA - ABG: PO2 22 and CO2 22; pH: 7.31 - F/U CBC, CMP, phos, mg, chest Xray, Pro-BNP; PT/ INR - Duoneb x1 - Duoneb ATC Q4H - D50 amp given Glucose of 34 - Start D5- NS @ 60cc/hr given patient has not been eating. - Changed Cipro to Rocephin as cipro can caused hypoglycemia - Hold BP medications - Enalapril BP holding measures - Levemir discontinued at this time - Transfer to ICU
[2018-12-17] MEDS ORDERED: Dextrose 5%/0.9% NS 1,000 ML IV SCH (09:30)
[2018-12-17 09:32] LABS: ABG ALLEN TEST YES; ARTERIAL BLOOD GAS HCO3 13.4 mmol/L (21-28); ARTERIAL BLOOD GAS O2 SAT 38.2 % (95-98); ARTERIAL BLOOD GAS PCO2 22 mm/Hg (35-45); ARTERIAL BLOOD GAS PH 7.31 (7.35-7.45); ARTERIAL BLOOD GAS PO2 22 mm/Hg (80-100); ARTERIAL BLOOD GAS TCO2 11.8 mmol/L (22-28)
[2018-12-17 09:53] LABS: BASO # 0.1 K/uL (0.0-0.2); BASO % 0.5 % (0.0-2.0); EOS # 0.1 K/uL (0.0-0.7); EOS % 0.8 % (0.0-4.0); HEMOGLOBIN 11.7 g/dL (12.0-16.0); LYMPH % 16.9 % (20.0-40.0); MEAN CELL VOLUME 86.2 fl (81.0-99.0); MEAN CORPUSCULAR HEMOGLOBIN 27.8 pg (27.0-31.0); MEAN CORPUSCULAR HGB CONC 32.2 g/dL (33.0-37.0); MEAN PLATELET VOLUME 8.7 fl (7.2-11.7); MONO # 1.3 K/uL (0.0-0.8); NEUT # 13.4 K/uL (1.8-7.0); NEUT % 74.8 % (50.0-75.0); NRBC % 0.1 % (0.0-0.0); RBC 4.2 Mil/uL (3.80-5.20); RED CELL DISTRIBUTION WIDTH 15.7 % (11.5-14.5)
[2018-12-17 10:05] LABS: INR 1.6; PROTHROMBIN TIME 18.5 Seconds (9.8-13.1)
--- NOTE | 2018-12-17 10:17 | PN ---
DATE: 12/17/2018 SUBJECTIVE: The patient was seen and examined. Interim events noted. The patient remains in regular medical floor. Multiple telephone orders were given. The patient remains uncooperative and not able to provide informative history. REVIEW OF SYSTEMS: No chest pain or shortness of breath. The patient refused to take potassium. PHYSICAL EXAMINATION: GENERAL: The patient is in no acute distress. VITAL SIGNS: Stable. HEART: S1, S2. Normal and regular. LUNGS: Good bilateral air exchange. ABDOMEN: Soft, nontender. EXTREMITIES: No edema, no calf swelling, no tenderness, no acute ischemia. CENTRAL NERVOUS SYSTEM: Exam is essentially unchanged. DIAGNOSTIC DATA: Available diagnostic data reviewed. ASSESSMENT AND PLAN: Overall, the patient is medically stable. Plan as ordered. Rashid Ellis MD
[2018-12-17 10:25] LABS: CALCIUM 8.8 mg/dL (8.4-10.2)
[2018-12-17 10:26] LABS: ALB/GLOB RATIO 1.1 (1.0-2.1); ALBUMIN 3.5 g/dL (3.5-5.0)
[2018-12-17 11:05] VITALS: RESP 18
[2018-12-17 11:09] VITALS: PULSE 88
--- NOTE | 2018-12-17 11:49 | PCM.PROC ---
Procedures Attestation:: I certify that I have explained the specified Operation(s) or Procedure(s), risks, benefits and reasonable alternatives to the Patient and/or other person responsible. The opportunity was given to ask questions and all questions answered - IO Left Anesthetic Used: none IO Instrument Used to Penetrate the Cortex: standard IO needle, battery powered IO drill Patient Tolerated Procedure: no complications Complications: none Additional comments: Consent: Unable to obtained. Critical intervention performed during code blue. Procedure performed during emrgent situation (code blue) due to IV line access needed. Prior to proceed with IO cannula insertion multiple attempts at peripheral line were made by nursing and central line placement was attempted without success. Procedure and insertion site:The area was cleaned and prepped in the usual fashion, approximately 2 cm below and medial to the tibial tuberosity the left tibia was cannulated with power drill and standard IO needle.
[2018-12-17] MEDS ORDERED: Albuterol-Ipratrop 3 mg / 0.5 (3 ml) UD INH SCH (12:00)
--- NOTE | 2018-12-17 12:29 | CP.PCM.CON ---
History of Present Illness - History of Present Illness History of Present Illness: 88 YOP was transferred to ICU after an MOLECULAR PATHOLOGIST was called while pt was on floor for hypoxia and hypotension, , when patient was transferred to ICU she was awake and tachypnic, BP was 140/[address], BS was 135, O2 sat was 88-91% on 4 L NC, changed to HCNL , as pt would not want ant facemask or BiPAP, HFNC started , saturation improved to . 90% but suddenly patient become unresponsive, I intubated the patient immediately , her saturation was good but she remained unresponsive and then became bradycardiac and went into PEA. Code truman was called, CPR started, and after alsmot 20 minutes, pulse retuned to ST, but she went to PEA again and CPR was started gain and pule retuned again after about 10 minutes. Family was present, I spoke to patient's and son and other family members and they agreed to make her DNR/DNI. Meanwhile, while pt still had BP and pulse, after the code, plan was to send to her for quick CTA and CT head to r/o PE and brain heamorrhage but patient went into bradycardia and asystole , no CPR was initiated this time, as per family's wishes and patient edwin 12-15 PM, on 12/17/18. Past Patient History - Past Medical History & Family History Past Medical History?: Yes Past Family History: Reviewed and not pertinent - Past Social History Smoking Status: Current Some Days Smoker - CARDIAC Hx Hypercholesterolemia: Yes Hx Hypertension: Yes - PULMONARY Hx Respiratory Disorders: No - NEUROLOGICAL Hx Neurological Disorder: No - HEENT Hx HEENT Problems: Yes (glaucoma) - RENAL Hx Chronic Kidney Disease: No Hx Kidney Stones: Yes - ENDOCRINE/METABOLIC Hx Endocrine Disorders: Yes (dm2) - HEMATOLOGICAL/ONCOLOGICAL Hx Human Immunodeficiency Virus (HIV): No - INTEGUMENTARY Hx Dermatological Problems: No - MUSCULOSKELETAL/RHEUMATOLOGICAL Hx Musculoskeletal Disorders: No Hx Falls: Yes - GASTROINTESTINAL Hx Gastrointestinal Disorders: No - GENITOURINARY/GYNECOLOGICAL Hx Genitourinary Disorders: No - PSYCHIATRIC Hx Psychophysiologic Disorder: No Hx Substance Use: No - SURGICAL HISTORY Hx Hysterectomy: Yes - ANESTHESIA Hx Anesthesia: Yes Hx Anesthesia Reactions: No Hx Malignant Hyperthermia: No Meds Home Medications: Home Medication List Medication Instructions Recorded Confirmed Type Cholecalciferol 400 Intl Units 400 intlu PO DAILY tab 12/15/18 Rx [Vitamin D 400 Intl Units Tab] Heparin 5,000 units SC Q8@0400,1200,2000 12/15/18 Rx vial Insulin Detemir [Levemir] 20 units SC HS vial 12/15/18 Rx traMADol [Ultram] 50 mg PO Q4 PRN #10 tab 12/15/18 Rx Allergies/Adverse Reactions: Allergies Allergy/AdvReac Type Severity Reaction Status Date / Time lactose Allergy VOMITING Verified 12/08/18 02:39 - Medications Medications: Current Medications Acetaminophen (Tylenol 325mg Tab) 650 mg PO Q6 [facility] Last Admin: 12/17/18 03:19 Dose: 650 mg Albuterol/Ipratropium (Duoneb 3 Mg/0.5 Mg (3 Ml) Ud) 3 ml INH RQ4 [facility] Last Admin: 12/17/18 11:39 Dose: Not Given Artificial Tears (Artificial Tears) 1 drop OU RQ4 PRN PRN Reason: Dry eyes Atorvastatin Calcium (Lipitor) 10 mg PO DAILY [facility] Last Admin: 12/16/18 08:29 Dose: 10 mg Bethanechol Chloride (Urecholine) 50 mg PO Q8H [facility] Last Admin: 12/17/18 00:36 Dose: 50 mg Clonidine HCl (Catapres) 0.1 mg PO Q6 PRN PRN Reason: Other Last Admin: 12/16/18 15:51 Dose: 0.1 mg Enalapril Maleate (Vasotec) 20 mg PO DAILY [facility] Last Admin: 12/16/18 08:28 Dose: 20 mg Fluticasone Propionate (Flonase) 2 spr MARY DAILY [facility] Last Admin: 12/16/18 08:25 Dose: 2 spr Glipizide (Glucotrol Xl) 10 mg PO ACBD [facility] Last Admin: 12/16/18 18:01 Dose: 10 mg Heparin Sodium (Porcine) (Heparin) 5,000 units SC Q8@0400,1200,2000 [facility]; Protocol Last Admin: 12/17/18 03:19 Dose: 5,000 units Hydrochlorothiazide (Hydrodiuril) 25 mg PO DAILY [facility] Last Admin: 12/16/18 08:28 Dose: 25 mg Dextrose/Sodium Chloride (Dextrose 5%/0.9% Ns 1000 Ml) 1,000 mls @ 60 mls/hr IV .[id number] [facility] Stop: 12/18/18 09:18 Ceftriaxone Sodium 1 gm/ (Sodium Chloride) 100 mls @ 100 mls/hr IVPB DAILY [facility]; Protocol Insulin Human Lispro (Humalog) 0 units SC ACHS [facility] Last Admin: 12/17/18 06:31 Dose: Not Given Latanoprost (Xalatan Opht) 1 drop OU HS [facility] Last Admin: 12/16/18 21:41 Dose: 1 drop Morphine Sulfate (Morphine) 1 mg IVP Q4 PRN PRN Reason: Pain, moderate (4-7) Last Admin: 12/15/18 19:45 Dose: 1 mg Ondansetron HCl (Zofran Inj) 2 mg IVP Q6 PRN PRN Reason: Nausea/Vomiting Last Admin: 12/09/18 18:29 Dose: 2 mg Repaglinide (Prandin) 2 mg PO TIDWM [facility] Last Admin: 12/16/18 17:59 Dose: 2 mg Vitamin D (Vitamin D 400 Intl Units Tab) 400 intlu PO DAILY [facility] Last Admin: 12/16/18 08:30 Dose: 400 intlu Physical Exam - Head Exam Head Exam: ATRAUMATIC - Eye Exam Pupil Exam: Fixed, Mydriatic - ENT Exam ENT Exam: Mucous Membranes Moist Results - Vital Signs Recent Vital Signs: Last Vital Signs Temp 97.8 F 12/17/18 07:43 Pulse 88 12/17/18 10:35 Resp 18 12/17/18 10:20 BP 100/66 12/17/18 07:43 Pulse Ox 95 12/17/18 07:43 - Labs Result Diagrams: 12/17/18 09:38 12/17/18 09:38 Labs: Laboratory Results - last 24 hr 12/16/18 12/16/18 12/16/18 15:27 17:44 21:30 WBC RBC Hgb Hct MCV MCH MCHC RDW Plt Count MPV Neut % (Auto) Lymph % (Auto) [place] % (Auto) Eos % (Auto) Baso % (Auto) Neut # (Auto) Lymph # (Auto) [place] # (Auto) Eos # (Auto) Baso # (Auto) PT INR pCO2 pO2 HCO3 ABG pH ABG Total CO2 ABG O2 Saturation ABG Base Excess [place]istan Test ABG Potassium A-a O2 Difference Sodium Chloride Glucose Lactate FiO2 Crit Value Called To Crit Value Called By Crit Value Read Back Blood Gas Notified Time Potassium Carbon Dioxide Anion Gap BUN Creatinine Est GFR ( Amer) Est GFR (Non-Af Amer) POC Glucose (mg/dL) 151 H 175 H 131 H Random Glucose Lactic Acid Calcium Phosphorus Magnesium Total Bilirubin AST ALT Alkaline Phosphatase NT-Pro-B Natriuret Pep Total Protein Albumin Globulin Albumin/Globulin Ratio Arterial Blood Potassium 12/17/18 12/17/18 12/17/18 05:31 06:22 09:10 WBC RBC Hgb Hct MCV MCH MCHC RDW Plt Count MPV Neut % (Auto) Lymph % (Auto) [place] % (Auto) Eos % (Auto) Baso % (Auto) Neut # (Auto) Lymph # (Auto) [place] # (Auto) Eos # (Auto) Baso # (Auto) PT INR pCO2 pO2 HCO3 ABG pH ABG Total CO2 ABG O2 Saturation ABG Base Excess [place] Test ABG Potassium A-a O2 Difference Sodium Chloride Glucose Lactate FiO2 Crit Value Called To Crit Value Called By Crit Value Read Back Blood Gas Notified Time Potassium Carbon Dioxide Anion Gap BUN Creatinine Est GFR ( Amer) Est GFR (Non-Af Amer) POC Glucose (mg/dL) 48 L 88 34 L* Random Glucose Lactic Acid Calcium Phosphorus Magnesium Total Bilirubin AST ALT Alkaline Phosphatase NT-Pro-B Natriuret Pep Total Protein Albumin Globulin Albumin/Globulin Ratio Arterial Blood Potassium 12/17/18 12/17/18 12/17/18 09:26 09:30 09:38 WBC RBC Hgb Hct MCV MCH MCHC RDW Plt Count MPV Neut % (Auto) Lymph % (Auto) [place] % (Auto) Eos % (Auto) Baso % (Auto) Neut # (Auto) Lymph # (Auto) [place] # (Auto) Eos # (Auto) Baso # (Auto) PT INR pCO2 22 L pO2 22 L* HCO3 13.4 L ABG pH 7.31 L ABG Total CO2 11.8 L ABG O2 Saturation 38.2 L ABG Base Excess -14.0 L Tristan Test Yes ABG Potassium 1.5 L* A-a O2 Difference 307.0 Sodium 121.0 L 139 Chloride 101.0 101 Glucose 695 H* Lactate 1.9 FiO2 50.0 Crit Value Called To Dr brittney chi Crit Value Called By 15 Crit Value Read Back Y Blood Gas Notified Time 931 Potassium 3.6 Carbon Dioxide 25 Anion Gap 17 BUN 36 H Creatinine 1.7 H Est GFR ( Amer) 34 Est GFR (Non-Af Amer) 28 POC Glucose (mg/dL) 127 H Random Glucose 227 H Lactic Acid Calcium 8.8 Phosphorus 3.2 Magnesium 2.0 Total Bilirubin 1.5 H AST 51 H D ALT 23 Alkaline Phosphatase 98 NT-Pro-B Natriuret Pep 9440 H Total Protein 6.7 Albumin 3.5 Globulin 3.2 Albumin/Globulin Ratio 1.1 Arterial Blood Potassium 1.5 L* 12/17/18 12/17/18 12/17/18 09:38 09:38 09:38 WBC 18.0 H D RBC 4.20 Hgb 11.7 L Hct 36.3 MCV 86.2 MCH 27.8 MCHC 32.2 L RDW 15.7 H Plt Count 167 MPV 8.7 Neut % (Auto) 74.8 Lymph % (Auto) 16.9 L [place] % (Auto) 7.0 Eos % (Auto) 0.8 Baso % (Auto) 0.5 Neut # (Auto) 13.4 H Lymph # (Auto) 3.0 [place] # (Auto) 1.3 H Eos # (Auto) 0.1 Baso # (Auto) 0.1 PT 18.5 H INR 1.6 pCO2 pO2 HCO3 ABG pH ABG Total CO2 ABG O2 Saturation ABG Base Excess Tristan Test ABG Potassium A-a O2 Difference Sodium Chloride Glucose Lactate FiO2 Crit Value Called To Crit Value Called By Crit Value Read Back Blood Gas Notified Time Potassium Carbon Dioxide Anion Gap BUN Creatinine Est GFR ( Amer) Est GFR (Non-Af Amer) POC Glucose (mg/dL) Random Glucose Lactic Acid 4.4 H* Calcium Phosphorus Magnesium Total Bilirubin AST ALT Alkaline Phosphatase NT-Pro-B Natriuret Pep Total Protein Albumin Globulin Albumin/Globulin Ratio Arterial Blood Potassium Assessment & Plan - Assessment and Plan (Free Text) Assessment: Cardiac arrest Resp falure STroke s/p Rt hip replacement Plan: please see code chart Pt was codes twice, then family made her DNR and pt at 12-15 PM on 12/17/18
[2018-12-17] MEDS ORDERED: Iodixanol 320 MG/ML 100 ML BOTTLE IV ONE (12:31)
[2018-12-17] MEDS ORDERED: Sodium Chloride 0.9% 0 ML ONE (12:32)
--- NOTE | 2018-12-17 13:49 | RAD ---
Date of service: 12/17/2018 HISTORY: Post-intubation confirmation COMPARISON: Frontal chest radiograph 12/17/2018. TECHNIQUE: 1 view obtained. FINDINGS: LUNGS: Endotracheal tube is in placed with the tip terminating approximately 4 cm above the hector. Linear atelectasis or fibrosis noted at the bilateral bases with limited patchy atelectasis or infiltrate noted at the medial right base. PLEURA: No significant pleural effusion identified, no pneumothorax apparent. CARDIOVASCULAR: Calcific atherosclerotic changes are seen related to the thoracic aorta. Normal cardiac size. No pulmonary vascular congestion. OSSEOUS STRUCTURES: No significant abnormalities. VISUALIZED UPPER ABDOMEN: Normal. OTHER FINDINGS: None. IMPRESSION: Interval endotracheal intubation as discussed above. No left-sided infiltrate. And early atelectasis or infiltrate question at the medial right base with linear atelectasis or fibrosis noted at the bilateral bases.
--- NOTE | 2018-12-17 13:56 | RAD ---
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 TECHNIQUE: 1 view obtained. FINDINGS: LUNGS: No consolidation bilaterally. Inferior pulmonary fibrotic changes are reiterated, favored over linear atelectasis bilaterally. PLEURA: No significant pleural effusion identified, no pneumothorax apparent. CARDIOVASCULAR: Calcific atherosclerotic changes are seen related to the thoracic aorta. Normal cardiac size. No pulmonary vascular congestion. OSSEOUS STRUCTURES: No significant abnormalities. VISUALIZED UPPER ABDOMEN: Normal. OTHER FINDINGS: None. IMPRESSION: No acute consolidation, pleural effusion or pneumothorax bilaterally. Fibrotic changes are again seen the inferior lung zones bilaterally, favored over linear atelectasis once again. No significant interval change.
--- NOTE | 2018-12-17 14:53 | PN ---
DATE: 12/17/2018 LOCATION: ICU room 432. SUBJECTIVE: This is an 88-year-old female with recent right hip fracture and underwent a right intertrochanteric pinning procedure and was doing fairly well in the telemetry floor when sudden late today developed marked hypoxia and hypotension and tachypnea and was transferred to ICU for closer hemodynamic monitoring. However, the oxygen saturation became worse with marked respiratory distress and she was subsequently intubated and remained unresponsive at that time. She was scheduled to go for a CT angiography and CAT scan of the head but became suddenly bradycardic and developed asystole and the patient's family decided that no CPR be undertaken at this time. Her glycemic levels were reported as very low this morning with a glucose of 34 mg/dL but the repeat glucose value was 127 mg/dL. Her chemistry showed a BUN of 36, sodium 139, potassium 3.6, chloride 101, CO2 of 25, glucose 227 and creatinine 1.7. ASSESSMENT: This is an 88-year-old female with recent uncontrolled type 2 insulin-requiring diabetes with improved metabolic profile on a combination of insulin therapy and oral hypoglycemic medications who suddenly developed hypotension and subsequent hypoxia with endotracheal intubation this morning. She also suddenly developed bradycardia and asystole and the family has opted to have no cardiopulmonary resuscitation to be undertaken at this time. PLAN OF MANAGEMENT: The Humalog insulin which was scheduled to be given as 8 units t.i.d. was discontinued this morning as ordered. Her Levemir given as basal insulin was lowered to 14 units subcu at bedtime daily as ordered. Moreover, her oral hypoglycemic therapy was withheld for now as noted. We concur with the present medical management. Kerri Bacon MD
[2018-12-17] MEDS ORDERED: Insulin Detemir 100 Units/ml Inj SC SCH (22:00)
== END 2018-12-17 12:15 | DRG 480 ==
LOC: H.ER 02:21 → H.ERHOLD 04:20 → H.MEDSURG1 06:27 → H.ICU/CCU 12-17 09:53
PROVIDERS: ADMIT Internal Medicine; ATTEND Internal Medicine
PROC: 0QS636Z Reposition Right Upper Femur with Intramedullary Internal Fixation Device, Percutaneous Approach (ICD-10-PCS; principal; 2018-12-09 10:00)
PROC: 06HY33Z Insertion of Infusion Device into Lower Vein, Percutaneous Approach (ICD-10-PCS; 2018-12-17)
PROC: 0BH17EZ Insertion of Endotracheal Airway into Trachea, Via Natural or Artificial Opening (ICD-10-PCS; 2018-12-17)
DX: S72.141A Displaced intertrochanteric fracture of right femur, initial encounter for closed fracture (principal); J96.91 Respiratory failure, unspecified with hypoxia; D62 Acute posthemorrhagic anemia; N39.0 Urinary tract infection, site not specified; E11.65 Type 2 diabetes mellitus with hyperglycemia; I46.9 Cardiac arrest, cause unspecified; R00.1 Bradycardia, unspecified; I95.89 Other hypotension; W01.0XXA Fall on same level from slipping, tripping and stumbling without subsequent striking against object, initial encounter; B96.1 Klebsiella pneumoniae [K. pneumoniae] as the cause of diseases classified elsewhere; I10 Essential (primary) hypertension; R29.6 Repeated falls; Z66 Do not resuscitate; R33.9 Retention of urine, unspecified; E78.00 Pure hypercholesterolemia, unspecified; E78.5 Hyperlipidemia, unspecified; Z79.4 Long term (current) use of insulin; Z87.442 Personal history of urinary calculi; Z91.81 History of falling; Z87.891 Personal history of nicotine dependence; Y92.009 Unspecified place in unspecified non-institutional (private) residence as the place of occurrence of the external cause